=== PATIENT | male | born 1950 | race Caucasian/White ===

== ENCOUNTER → 2022-02-18 14:09 | Outpatient (BNVA) | payer MEDICARE, SELFPAY | PROVIDERS: PCP Family Medicine; Visit Provider Student in an Organized Health Care Education/Training Program | DX: M35.3 Polymyalgia rheumatica (principal); M85.859 Other specified disorders of bone density and structure, unspecified thigh; E11.9 Type 2 diabetes mellitus without complications; Z79.52 Long term (current) use of systemic steroids | CPT/HCPCS: 99202 ==

== ENCOUNTER 2022-09-29 08:44 | Outpatient (AMB) | payer MEDICARE, SELFPAY ==
[2022-09-29 08:45] VITALS: BP 104/60; PULSE 70; RESP 16; TEMP 36.2; O2SAT 97; BMI 29.0
--- NOTE | 2022-09-29 08:45 | A.OFFVIS_ITS ---
Intake Vital Signs 09/29/22 08:45 Height 5 ft 8 in Weight 191 lb BMI 29.0 BP 104/60 Blood Pressure Location Rt brachial Position Sitting Respiration 16 Pulse 70 Pulse Source Pulse Oximeter Temp 97.1 F Temp Source Temporal Artery Scan Pulse Oximetry (%) 97 Oxygen Delivery Method Room Air Intake Visit Reasons: Symptoms of my PMR are coming back Allergies No Known Allergies Allergy (Verified 09/29/22 08:50) Medication List - Last Reconciled 09/29/22 by Britney Foss MD cholecalciferol (vitamin D3) (Vitamin D3) 25 mcg PO DAILY multivitamin 1 tab PO DAILY simvastatin 40 mg PO BEDTIME HPI HPI Comments History of Present Illness Details 72-year-old male with PMR returns for follow-up. Patient completely tapered self of prednisone back in March of 2022. He had his dental implants done in April of 2022. He states that since stopping the prednisone his been getting stiffness of his fingers especially the right hand, especially the thumb 2nd 3rd and 4th fingers, cannot make a full fist. States that yesterday while playing cards he was unable to shuffle cards. States that he has morning stiffness lasting 2-3 hours. No shoulder, hip or knee pain. Initial history: This is a 71 -year-old male with polymyalgia rheumatica.? He used to follow-up with Dr. Sanches but she left the practice.?? Per Dr. Sanches's notes: Diagnosed with PMR in April 2020.? He was having soreness in his hands, shoulders then progressed to upper arms and thighs.? He was started on prednisone 15 mg for 4 weeks then 12.5 mg for 2 weeks then 10 mg for 2 weeks then decrease by 1 mg every 2 weeks.? He took it for 6 months.? When he went down to 4 mg, his symptoms started reappearing again in the right 2 fingers where it initially started. He restarted prednisone 15 mg on October 23 same dosage Patient was tapering his prednisone dose by 1 mg a month.? He he has been on prednisone 1 mg daily since the beginning of February.? He feels well overall except for some stiffness of his right 2nd 3rd and 4th fingers.? This started when he was on 3 mg of prednisone. [facility] Medical History Erectile dysfunction GERD (gastroesophageal reflux disease) Hyperlipidemia Osteoarthritis Osteopenia Peripheral venous insufficiency Plantar fasciitis Polymyalgia rheumatica Type 2 diabetes mellitus without complication Surgical History Hx of colonoscopy Hx of vasectomy Family History Father Spinal stenosis Mother Arthritis Brother Type 1 diabetes mellitus Social History Alcohol intake: current Alcohol intake frequency: a few times a week Patient Tobacco Use Status: Never used Tobacco Current occupational status: previously employed and retired Current occupation: used to be a [employer] Review of Systems [facility] [place] Reports arthralgias and Reports stiffness Physical Exam Vital Signs: Last Vital Signs Temp 97.1 F 09/29/22 08:45 Pulse 70 09/29/22 08:45 Resp 16 09/29/22 08:45 BP 104/60 09/29/22 08:45 Pulse Ox 97 09/29/22 08:45 Oxygen Delivery Method Room Air 09/29/22 08:45 BMI result Body Mass Index 29.0 Const General: cooperative, healthy appearing, comfortable and no acute distress Nutritional Appearance: average body habitus Orientation/consciousness: patient oriented x3 Limitations: no limitations HEENT Head: Yes normocephalic and Yes atraumatic Mouth: moist mucous membranes Resp Effort & Inspection: normal respiratory effort and able to speak in complete sentences Neuro General: patient oriented x3 Extrem Other: Tenderness to palpation in the right 1st CMC, right 1st MCP and interphalangeal joint. Significantly stiff right thumb with movement Normal range of motion of both shoulders, elbows, knees without pain. Bilateral positive MTP squeeze test Could not elicit any triggering of his fingers bilaterally Negative MCP squeeze test Results Reviewed Results Reviewed: DEXA scan 2020? Lumbar spine T-score: -0.2? Femoral neck T-score: -1.6 Total hip T-score: -1.0 1/3 radius T-score: -1.1 Rheumatoid factor, CCP, DOLLY, CRP, sed rate all normal/negative Assessment & Plan Assessment & Plan (1) Seronegative rheumatoid arthritis: Code(s): M06.00 - Rheumatoid arthritis without rheumatoid factor, unspecified site Plan: 71-year-old male with PMR presents for follow-up.? His previous real estate consultant left the practice.? PMR symptoms starting in late 2019 and was diagnosed April of 2020 with initial stiffness of his right 2nd and 3rd fingers then it progressed to involve his shoulders and hips.? Symptoms were well controlled with prednisone taper.? Stiffness of fingers recur 1 patient reduces his prednisone dose below 3 mg. He has completely tapered himself off prednisone since March of 2022 with recurrent stiffness of his fingers especially the right hand. No shoulder or hip pain or stiffness. Recent labs show normal inflammatory markers. Picture likely consistent with seronegative RA. Will need to start DMARDs. Discussed risks and benefits of hydroxychloroquine. Patient agreed to proceed. Start hydroxychloroquine 200 mg Twice daily Follow-up in 3 months (2) Osteopenia: Code(s): M85.80 - Other specified disorders of bone density and structure, unspecified site Qualifiers: Osteopenia location: femoral neck Laterality: unspecified laterality Qualified Code(s): M85.859 - Other specified disorders of bone density and structure, unspecified thigh Plan: DEXA scan 2020? Lumbar spine T-score: -0.2? Femoral neck T-score: -1.6 Total hip T-score: -1.0 1/3 radius T-score: -1.1 Patient took alendronate for about 1 year until February of 2022. No side effects. Patient is not currently on prednisone. He does not need the alendronate at this point (3) Long-term use of hydroxychloroquine: Code(s): Z79.899 - Other longterm (current) drug therapy Plan: Side effects of Plaquenil were discussed with patient is including but retinal toxicity.. Referred patient to Ophthalmology for baseline eye exam Plan I spent 26 minutes reviewing patient's chart, evaluating patient, ordering diagnostic workup, counseling patient and documenting in the chart Orders: Referrals Ophthalmology Referral Z79.899 - Other termite exterminator (current) drug therapy Medications: New hydroxychloroquine 200 mg PO BID 60 tabs 2RF Coding Level of Care Code Est Pt Level 4 (66807) Diagnoses Seronegative rheumatoid arthritis M06.00 Osteopenia M85.859 Osteopenia location: femoral neck Laterality: unspecified laterality Long-term use of hydroxychloroquine Z79.899
== END 2022-09-29 09:11 | disposition home or self-care (01) ==
PROVIDERS: PCP Family Medicine; Visit Provider Student in an Organized Health Care Education/Training Program
DX: M06.00 Rheumatoid arthritis without rheumatoid factor, unspecified site (principal); M85.859 Other specified disorders of bone density and structure, unspecified thigh; Z79.899 Other long term (current) drug therapy
CPT/HCPCS: 99214

== ENCOUNTER → 2022-09-29 08:44 | Outpatient (BNVA) | payer MEDICARE, SELFPAY | PROVIDERS: PCP Family Medicine; Visit Provider Student in an Organized Health Care Education/Training Program | DX: M06.00 Rheumatoid arthritis without rheumatoid factor, unspecified site (principal); M85.859 Other specified disorders of bone density and structure, unspecified thigh; Z79.899 Other long term (current) drug therapy | CPT/HCPCS: 99212 ==

== ENCOUNTER 2022-12-27 09:11 | Outpatient (AMB) | payer MEDICARE, SELFPAY ==
[2022-12-27 09:16] VITALS: BP 122/74; PULSE 73; TEMP 36.1; O2SAT 96; BMI 28.9
--- NOTE | 2022-12-27 09:16 | A.OFFVIS_ITS ---
Intake Vital Signs 12/27/22 09:16 Height 5 ft 8 in Weight 190 lb 0.615 oz BMI 28.9 BP 122/74 Blood Pressure Location Rt brachial Position Sitting Pulse 73 Pulse Source Pulse Oximeter Temp 97.0 F Temp Source Skin Pulse Oximetry (%) 96 Intake Visit Reasons: RA Intake Note: Pt seen today for RA follow up. Requesting 3 month supply of plaquenil as [place] the [place]. Bank Courier Required: No Accompanied by: Self / Same As Patient Allergies No Known Allergies Allergy (Verified 12/27/22 09:18) Medication List - Last Reconciled 12/27/22 by Britney Foss MD cholecalciferol (vitamin D3) (Vitamin D3) 25 mcg PO DAILY hydroxychloroquine 200 mg PO BID multivitamin 1 tab PO DAILY simvastatin 40 mg PO BEDTIME HPI HPI Comments History of Present Illness Details 72-year-old male with seronegative RA re turns for follow-up. Has been hydroxychloroquine 200 mg Twice daily for the last 3 months. States that he is much better overall. Improved pain and stiffness in his fingers. right now he is able to shuffle cards. States that for the last month or so he has been waking up in the middle of the night around 3-4 p.m. and feels that his left 4th and 5th fingers feel like they are popping when he bends them. Otherwise he feels well. Denies any toe pain. Has been off prednisone for a long period of time. Initial history: This is a 71 -year-old male with polymyalgia rheumatica.? He used to follow-up with Dr. Sanches but she left the practice.?? Per Dr. Sanches's notes: Diagnosed with PMR in April 2020.? He was having soreness in his hands, shoulders then progressed to upper arms and thighs.? He was started on prednisone 15 mg for 4 weeks then 12.5 mg for 2 weeks then 10 mg for 2 weeks then decrease by 1 mg every 2 weeks.? He took it for 6 months.? When he went down to 4 mg, his symptoms started reappearing again in the right 2 fingers where it initially started. He restarted prednisone 15 mg on October 23 same dosage Patient was tapering his prednisone dose by 1 mg a month.? He he has been on prednisone 1 mg daily since the beginning of February.? He feels well overall except for some stiffness of his right 2nd 3rd and 4th fingers.? This started when he was on 3 mg of prednisone. 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 of Systems [facility] [place], [place] Reports arthralgias and Reports stiffness Physical Exam Vital Signs: Last Vital Signs Temp 97.0 F 12/27/22 09:16 Pulse 73 12/27/22 09:16 BP 122/74 12/27/22 09:16 Pulse Ox 96 12/27/22 09:16 BMI result Body Mass Index 28.9 Const General: cooperative, healthy appearing, comfortable and no acute distress Nutritional Appearance: average body habitus Orientation/consciousness: patient oriented x3 Limitations: no limitations HEENT Head: Yes normocephalic and Yes atraumatic Resp Effort & Inspection: normal respiratory effort and able to speak in complete sentences Neuro General: patient oriented x3 Extrem Other: Tenderness to palpation in the right 1st CMC, right 1st MCP and interphalangeal joint. No swelling and normal range of motion of right thumb Very early Dupuytren's contracture of both hands, not affecting of motion of fingers. Negative MTP squeeze test bilateral Could not elicit any triggering of his fingers bilaterally Results Reviewed Results Reviewed: DEXA scan 2020? Lumbar spine T-score: -0.2? Femoral neck T-score: -1.6 Total hip T-score: -1.0 1/3 radius T-score: -1.1 Rheumatoid factor, CCP, DOLLY, CRP, sed rate all normal/negative Assessment & Plan Assessment & Plan (1) Seronegative rheumatoid arthritis: Comment: initially dx with PMR in 2019 tt prednisone relabeled to seroneg RA 09/2022 HCQ 09/2022 effective Code(s): M06.00 - Rheumatoid arthritis without rheumatoid factor, unspecified site Plan: This is a 72-year-old male with seronegative RA who returns for follow-up. Doing much better overall on hydroxychloroquine 200 mg Twice daily Continue hydroxychloroquine 20 mg Twice daily Labs before next visit in 6 months (2) Osteopenia: Code(s): M85.80 - Other specified disorders of bone density and structure, unspecified site Qualifiers: Osteopenia location: femoral neck Laterality: unspecified laterality Qualified Code(s): M85.859 - Other specified disorders of bone density and structure, unspecified thigh Plan: DEXA scan 2020? Lumbar spine T-score: -0.2? Femoral neck T-score: -1.6 Total hip T-score: -1.0 03/08 radius T-score: -1.1 Patient took alendronate for about 1 year until February of 2022. No side effects. Patient is not currently on prednisone. He does not need the alendronate at this point (3) Long-term use of hydroxychloroquine: Code(s): Z79.899 - Other terminal operations supervisor (current) drug therapy Plan: Patient aware of side effects related to hydroxychloroquine. Was evaluated by filter tip inspector Dr. Howard landers 10/2022 and cleared to start hydroxychloroquine Plan I spent 26 minutes reviewing patient's chart, evaluating patient, ordering diagnostic workup, counseling patient and documenting in the chart Orders: Orders Complete Blood Count Auto Diff 6 Months M06.00 - Rheumatoid arthritis without rheumatoid factor, unspecified site C Reactive Protein 6 Months M06.00 - Rheumatoid arthritis without rheumatoid factor, unspecified site Erythrocyte Sedimentation Rate 6 Months M06.00 - Rheumatoid arthritis without rheumatoid factor, unspecified site Comprehensive Met. Panel 6 Months M06.00 - Rheumatoid arthritis without rheumatoid factor, unspecified site Medications: Refilled hydroxychloroquine 200 mg PO BID 360 tabs 0RF Coding Level of Care Code Est Pt Level 4 (75059) Diagnoses Seronegative rheumatoid arthritis M06.00 Osteopenia of neck of femur, unspecified laterality M85.859 Osteopenia location: femoral neck Laterality: unspecified laterality Long-term use of hydroxychloroquine Z79.899
== END 2022-12-27 09:40 | disposition home or self-care (01) ==
PROVIDERS: PCP Family Medicine; Visit Provider Student in an Organized Health Care Education/Training Program
DX: M06.00 Rheumatoid arthritis without rheumatoid factor, unspecified site (principal); M85.859 Other specified disorders of bone density and structure, unspecified thigh; Z79.899 Other long term (current) drug therapy
CPT/HCPCS: 99214

== ENCOUNTER → 2022-12-27 09:11 | Outpatient (BNVA) | payer MEDICARE, SELFPAY | PROVIDERS: PCP Family Medicine; Visit Provider Student in an Organized Health Care Education/Training Program | DX: M06.00 Rheumatoid arthritis without rheumatoid factor, unspecified site (principal); M85.859 Other specified disorders of bone density and structure, unspecified thigh; Z79.899 Other long term (current) drug therapy | CPT/HCPCS: 99212 ==

== ENCOUNTER 2023-06-16 10:03 | Outpatient (REF) | payer MEDICARE, SELFPAY ==
[2023-06-16 10:52] LABS: MANUAL DIFF FLAG NO
[2023-06-16 11:02] LABS: Basophils Percent Auto 0.8 % (0-2); Eosinophils Absolute Auto 0.3 X10*3/uL (0.0-0.4); Eosinophils Percent Auto 6.5 % (0-4); Hematocrit 47.4 % (42.0-52.0); Hemoglobin 16.5 g/dl (14.0-18.0); Imm Gran Abs Auto 0.01 X10*3/uL (0.00-0.03); Imm Gran Pct Auto 0.3 % (0.0-0.4); Lymphocytes Absolute Auto 1.4 X10*3/uL (1.2-4.9); Lymphocytes Percent Auto 35.2 % (20-40); Mean Corpuscular HGB Conc 34.8 g/dl (31.0-36.0); Mean Corpuscular Hemoglobin 30.1 pg (27.0-33.0); Mean Corpuscular Volume 86.5 fL (80.0-98.0); Mean Platelet Volume 8.9 fL (9.4-12.4); Monocytes Absolute Auto 0.5 X10*3/uL (0.1-1.2); Monocytes Percent Auto 12.7 % (2-11); Neutrophils Absolute Auto 1.7 x10*3/uL (2.0-8.3); Neutrophils Percent Auto 44.5 % (45-73); Platelet Count 170 X10*3/uL (160-400); Red Blood Count 5.48 X10*6/uL (4.60-5.80); Red Cell Distribution Width 12.6 % (11.0-16.0); White Blood Count 3.9 X10*3/uL (4.8-10.8)
[2023-06-16 11:47] LABS: Erythrocyte Sedimentation Rate 2 MM/HR (0-15)
[2023-06-16 14:59] LABS: Alanine Aminotransferase 34 U/L (0-40); Albumin Level 4.2 g/dL (3.5-5.0); Alkaline Phosphatase 56 U/L (39-117); Anion Gap 12 (12-20); Aspartate Amino Transferase 38 U/L (5-37); Bilirubin Total 0.9 mg/dL (0.0-1.0); Blood Urea Nitrogen 19 mg/dL (9-16); C Reactive Protein 0.13 mg/dL (< or = 0.50); Calcium 10.6 mg/dL (8.4-10.2); Carbon Dioxide 25 mmol/L (22-29); Chloride 108 mmol/L (96-108); Estimated Glomerular Filt Rate > 60; Glucose Random 104 mg/dL (60-115); Potassium 4.4 mmol/L (3.3-5.1); Sodium 141 mmol/L (135-145); Total Protein 7.3 g/dL (6.5-8.0)
== END 2023-06-16 10:04 | disposition home or self-care (01) ==
LOC: HO.10HDL 10:03
PROVIDERS: Visit Provider Student in an Organized Health Care Education/Training Program
DX: M06.00 Rheumatoid arthritis without rheumatoid factor, unspecified site (principal)
CPT/HCPCS: 36415; 80053; 85025; 85652; 86140

== ENCOUNTER 2023-06-21 09:53 | Outpatient (AMB) | payer MEDICARE, SELFPAY ==
[2023-06-21 10:00] VITALS: BP 114/64; PULSE 65; BMI 28.8
--- NOTE | 2023-06-21 10:00 | A.OFFVIS_ITS ---
Intake Vital Signs 06/21/23 10:00 Height 5 ft 8 in Weight 189 lb 2.506 oz BMI 28.8 BP 114/64 Blood Pressure Location Rt brachial Position Sitting Pulse 65 Pulse Source Pulse Oximeter Oxygen Delivery Method Room Air Intake Visit Reasons: RA Intake Note: Patient last seen 12/27/22 presents today for follow up and test results. Tube Bending Machine Operator Required: No Accompanied by: Self / Same As Patient Allergies No Known Allergies Allergy (Verified 06/21/23 10:06) Medication List - Last Reconciled 06/21/23 by Britney Foss MD cholecalciferol (vitamin D3) (Vitamin D3) 25 mcg PO DAILY hydroxychloroquine 200 mg PO BID multivitamin 1 tab PO DAILY simvastatin 40 mg PO BEDTIME HPI HPI Comments History of Present Illness Details 72-year-old male with seronegative RA re turns for follow-up. Hydroxychloroquine 200 mg Twice daily. Doing well overall. States that recently has been having some triggering in the middle of the night of his left middle finger. It does not hurt. States that he was having similar triggering of his thumbs before he started the hydroxychloroquine. Gets bilateral knee pain with walking. Walk about an hour then start have knee pain. Denies any swollen joints. Initial history: This is a 71 -year-old male with polymyalgia rheumatica.? He used to follow-up with Dr. Sanches but she left the practice.?? Per Dr. Sanches's notes: Diagnosed with PMR in April 2020.? He was having soreness in his hands, shoulders then progressed to upper arms and thighs.? He was started on prednisone 15 mg for 4 weeks then 12.5 mg for 2 weeks then 10 mg for 2 weeks then decrease by 1 mg every 2 weeks.? He took it for 6 months.? When he went down to 4 mg, his symptoms started reappearing again in the right 2 fingers where it initially started. He restarted prednisone 15 mg on October 23 same dosage Patient was tapering his prednisone dose by 1 mg a month.? He he has been on prednisone 1 mg daily since the beginning of February.? He feels well overall except for some stiffness of his right 2nd 3rd and 4th fingers.? This started when he was on 3 mg of prednisone. 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 Systems [employer] Reports arthralgias and Reports stiffness Physical Exam Vital Signs: Last Vital Signs Pulse 65 06/21/23 10:00 BP 114/64 06/21/23 10:00 Oxygen Delivery Method Room Air 06/21/23 10:00 BMI result Body Mass Index 28.8 Const General: cooperative, healthy appearing, comfortable and no acute distress Nutritional Appearance: average body habitus Orientation/consciousness: patient oriented x3 Limitations: no limitations HEENT Head: Yes normocephalic and Yes atraumatic Resp Effort & Inspection: normal respiratory effort and able to speak in complete sentences Neuro General: patient oriented x3 Extrem Other: No active synovitis. No triggering elicited Normal range of motion of hands, elbows, shoulders without pain Very early Dupuytren's contracture of both hands, not affecting of motion of fingers. Negative MTP squeeze test bilateral No knee pain with full range of motion Results Reviewed Results Reviewed: DEXA scan 2020? Lumbar spine T-score: -0.2? Femoral neck T-score: -1.6 Total hip T-score: -1.0 03/08 radius T-score: -1.1 Rheumatoid factor, CCP, DOLLY, CRP, sed rate all normal/negative Assessment & Plan Assessment & Plan (1) Seronegative rheumatoid arthritis: Comment: initially dx with PMR in 2019 tt prednisone relabeled to seroneg RA 09/2022 HCQ 09/2022 effective Code(s): M06.00 - Rheumatoid arthritis without rheumatoid factor, unspecified site Plan: This is a 72-year-old male with seronegative RA who returns for follow-up. Doing well on hydroxychloroquine 200 mg Twice daily Continue hydroxychloroquine 200 mg Twice daily Labs before next visit in 6 months (2) Osteopenia: Code(s): M85.80 - Other specified disorders of bone density and structure, unspecified site Qualifiers: Osteopenia location: femoral neck Laterality: unspecified laterality Qualified Code(s): M85.859 - Other specified disorders of bone density and structure, unspecified thigh Plan: DEXA scan 2020? Lumbar spine T-score: -0.2? Femoral neck T-score: -1.6 Total hip T-score: -1.0 03/08 radius T-score: -1.1 Patient took alendronate for about 1 year until February of 2022. No side effects. Patient is not currently on prednisone. He does not need the alendronate at this point (3) Long-term use of hydroxychloroquine: Comment: Eye exam 10/2022 okay Code(s): Z79.899 - Other exterminator helper termite (current) drug therapy Plan: Patient aware of side effects related to hydroxychloroquine. Was evaluated by vice president marketing & development Dr. Howard landers 10/2022 and cleared to start hydroxychloroquine. Continue to follow-up with vice president marketing & development (4) Trigger finger, left middle finger: Code(s): M65.332 - Trigger finger, left middle finger Plan: Discussed different treatment modalities such as occupational therapy. Patient will consider buying [id number] finger splints Plan I spent 26 minutes reviewing patient's chart, evaluating patient, ordering diagnostic workup, counseling patient and documenting in the chart Orders: Orders Comprehensive Met. Panel 6 Months M06.00 - Rheumatoid arthritis without rheumatoid factor, unspecified site C Reactive Protein 6 Months M06.00 - Rheumatoid arthritis without rheumatoid factor, unspecified site Complete Blood Count Auto Diff 6 Months M06.00 - Rheumatoid arthritis without rheumatoid factor, unspecified site Erythrocyte Sedimentation Rate 6 Months M06.00 - Rheumatoid arthritis without rheumatoid factor, unspecified site Medications: Refilled hydroxychloroquine 200 mg PO BID 180 tabs 1RF Coding Level of Care Code Est Pt Level 4 (44401) Diagnoses Seronegative rheumatoid arthritis M06.00 Osteopenia of neck of femur, unspecified laterality M85.859 Osteopenia location: femoral neck Laterality: unspecified laterality Long-term use of hydroxychloroquine Z79.899 Trigger finger, left middle finger M65.332
== END 2023-06-21 10:21 | disposition home or self-care (01) ==
PROVIDERS: PCP Family Medicine; Visit Provider Student in an Organized Health Care Education/Training Program
DX: M06.00 Rheumatoid arthritis without rheumatoid factor, unspecified site (principal); M85.859 Other specified disorders of bone density and structure, unspecified thigh; Z79.899 Other long term (current) drug therapy; M65.332 Trigger finger, left middle finger
CPT/HCPCS: 99214

== ENCOUNTER → 2023-06-21 09:53 | Outpatient (BNVA) | payer MEDICARE, SELFPAY | PROVIDERS: PCP Family Medicine; Visit Provider Student in an Organized Health Care Education/Training Program | DX: M06.00 Rheumatoid arthritis without rheumatoid factor, unspecified site (principal); M85.859 Other specified disorders of bone density and structure, unspecified thigh; M65.332 Trigger finger, left middle finger; Z79.899 Other long term (current) drug therapy | CPT/HCPCS: 99212 ==

== ENCOUNTER 2023-12-21 09:07 | Outpatient (AMB) | payer MEDICARE, SELFPAY ==
--- NOTE | 2023-12-21 09:20 | MHC.OFFVIS ---
Vital Signs 12/21/23 09:23 Height 5 ft 8 in Weight 182 lb 1.629 oz BMI 27.7 BP 120/62 Blood Pressure Location Rt brachial Position Sitting Pulse 65 Pulse Source Pulse Oximeter Pulse Oximetry (%) 96 Oxygen Delivery Method Room Air Intake Visit Reasons: RA/CM Intake Note: Patient presents for RA. Allergies No Known Allergies Allergy (Verified 12/21/23 09:23) Medication List - Last Reconciled 12/21/23 by Britney Foss MD cholecalciferol (vitamin D3) (Vitamin D3) 25 mcg PO DAILY hydroxychloroquine 200 mg PO BID multivitamin 1 tab PO DAILY simvastatin 40 mg PO BEDTIME HPI Comments Details: 73-year-old male with seronegative RA returns for follow-up. On Hydroxychloroquine 200 mg Twice daily. Doing well overall. States that he feels about the same overall. Hands have been doing quite well with no pain swelling or stiffness. His main issue is his knee osteoarthritis. Gets bilateral knee pain with activity. Start getting achy knees after walking about an hour or a mile. He goes to the gym a few days a week and does different exercises. Initial history: This is a 71 -year-old male with polymyalgia rheumatica.? He used to follow-up with Dr. Sanches but she left the practice.?? Per Dr. Sanches's notes: Diagnosed with PMR in April 2020.? He was having soreness in his hands, shoulders then progressed to upper arms and thighs.? He was started on prednisone 15 mg for 4 weeks then 12.5 mg for 2 weeks then 10 mg for 2 weeks then decrease by 1 mg every 2 weeks.? He took it for 6 months.? When he went down to 4 mg, his symptoms started reappearing again in the right 2 fingers where it initially started. He restarted prednisone 15 mg on October 23 same dosage Patient was tapering his prednisone dose by 1 mg a month.? He he has been on prednisone 1 mg daily since the beginning of February.? He feels well overall except for some stiffness of his right 2nd 3rd and 4th fingers.? This started when he was on 3 mg of prednisone. [facility] Medical History Osteopenia Erectile dysfunction Plantar fasciitis Osteoarthritis GERD (gastroesophageal reflux disease) Peripheral venous insufficiency Hyperlipidemia Type 2 diabetes mellitus without complication Polymyalgia rheumatica Surgical History Hx of colonoscopy Hx of vasectomy Family History Father Spinal stenosis Mother Arthritis Brother Type 1 diabetes mellitus Social History Alcohol intake: current Alcohol intake frequency: a few times a week Patient Tobacco Use Status: Never used Tobacco Current occupational status: previously employed and retired 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 Review of Systems [facility] [place] Reports arthralgias and Reports stiffness Physical Exam Vital Signs: Last Vital Signs Pulse 65 12/21/23 09:23 BP 120/62 12/21/23 09:23 Pulse Ox 96 12/21/23 09:23 Oxygen Delivery Method Room Air 12/21/23 09:23 BMI result Body Mass Index 27.7 Const General: cooperative, healthy appearing, comfortable and no acute distress Nutritional Appearance: average body habitus Orientation/consciousness: patient oriented x3 Limitations: no limitations HEENT Head: Yes normocephalic and Yes atraumatic Resp Effort & Inspection: normal respiratory effort and able to speak in complete sentences Neuro General: patient oriented x3 Extrem Other: No active synovitis. No triggering elicited Normal range of motion of hands, elbows, shoulders without pain Very early Dupuytren's contracture of both hands, not affecting of motion of fingers. Negative MTP squeeze test bilateral Minimal bilateral knee pain with full extension Results Reviewed Results Reviewed: DEXA scan 2020? Lumbar spine T-score: -0.2? Femoral neck T-score: -1.6 Total hip T-score: -1.0 03/08 radius T-score: -1.1 Rheumatoid factor, CCP, DOLLY, CRP, sed rate all normal/negative Assessment & Plan Assessment & Plan (1) Seronegative rheumatoid arthritis: Comment: initially dx with PMR in 2019 tt prednisone relabeled to seroneg RA 09/2022 HCQ 09/2022 effective Code(s): M06.00 - Rheumatoid arthritis without rheumatoid factor, unspecified site Category: Medical Plan: This is a 72-year-old male with seronegative RA who returns for follow-up. Doing well on hydroxychloroquine 200 mg Twice daily Continue hydroxychloroquine 200 mg Twice daily Labs before next visit in 6 months (2) Osteopenia: Code(s): M85.80 - Other specified disorders of bone density and structure, unspecified site Category: Medical Qualifiers: Osteopenia location: femoral neck Laterality: unspecified laterality Qualified Code(s): M85.859 - Other specified disorders of bone density and structure, unspecified thigh Plan: DEXA scan 2020? Lumbar spine T-score: -0.2? Femoral neck T-score: -1.6 Total hip T-score: -1.0 03/08 radius T-score: -1.1 Patient took alendronate for about 1 year until February of 2022. No side effects. Patient is not currently on prednisone. He does not need the alendronate at this point (3) Long-term use of hydroxychloroquine: Comment: Eye exam 10/2022 & 06/2023 okay Code(s): Z79.899 - Other detention (current) drug therapy Category: Medical Plan: Patient aware of side effects related to hydroxychloroquine. 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 Symptoms are minimal. Patient still able to walk an hour and a half or a mile and a half daily. Goes to the gym. Does not take any medications for it Plan I spent 26 minutes reviewing patient's chart, evaluating patient, ordering diagnostic workup, counseling patient and documenting in the chart Orders: Orders Complete Blood Count Auto Diff 6 Months M06.00 - Rheumatoid arthritis without rheumatoid factor, unspecified site, Z79.899 - Other detention (current) drug therapy Comprehensive Met. Panel 6 Months M06.00 - Rheumatoid arthritis without rheumatoid factor, unspecified site, Z79.899 - Other detention (current) drug therapy C Reactive Protein 6 Months M06.00 - Rheumatoid arthritis without rheumatoid factor, unspecified site, Z79.899 - Other terminal press operator (current) drug therapy Erythrocyte Sedimentation Rate 6 Months M06.00 - Rheumatoid arthritis without rheumatoid factor, unspecified site, Z79.899 - Other detention (current) drug therapy Coding Level of Care Code Est Pt Level 4 (39158) Complex EM visit Add On G2211 Diagnoses Seronegative rheumatoid arthritis M06.00 Osteopenia of neck of femur, unspecified laterality M85.859 Osteopenia location: femoral neck Laterality: unspecified laterality Long-term use of hydroxychloroquine Z79.899 Bilateral primary osteoarthritis of knee M17.0
[2023-12-21 09:23] VITALS: BP 120/62; PULSE 65; O2SAT 96; BMI 27.7
== END 2023-12-21 09:52 | disposition home or self-care (01) ==
PROVIDERS: PCP Family Medicine; Visit Provider Student in an Organized Health Care Education/Training Program
DX: M06.00 Rheumatoid arthritis without rheumatoid factor, unspecified site (principal); M85.859 Other specified disorders of bone density and structure, unspecified thigh; Z79.899 Other long term (current) drug therapy; M17.0 Bilateral primary osteoarthritis of knee
CPT/HCPCS: 99214; G2211

== ENCOUNTER → 2023-12-21 09:07 | Outpatient (BNVA) | payer MEDICARE, SELFPAY | PROVIDERS: PCP Family Medicine; Visit Provider Student in an Organized Health Care Education/Training Program | DX: M06.00 Rheumatoid arthritis without rheumatoid factor, unspecified site (principal); M85.859 Other specified disorders of bone density and structure, unspecified thigh; M17.0 Bilateral primary osteoarthritis of knee; Z79.899 Other long term (current) drug therapy | CPT/HCPCS: 99212 ==

== ENCOUNTER 2024-05-29 07:50 | Outpatient (AMB) | payer MEDICARE, SELFPAY ==
[2024-05-29 07:52] VITALS: BP 118/70; PULSE 77; O2SAT 97; BMI 29.0
--- NOTE | 2024-05-29 07:52 | A.OFFVIS_ITS ---
Vital Signs 05/29/24 07:52 Height 5 ft 8 in Weight 190 lb 11.198 oz BMI 29.0 BP 118/70 Blood Pressure Location Lt brachial Position Sitting Pulse 77 Pulse Source Pulse Oximeter Pulse Oximetry (%) 97 Oxygen Delivery Method Room Air Intake Visit Reasons: RA/CM Intake Note: Patient last seen by Doctor Britney Foss on 12/21/23. Presents today for RA follow up and test results. Patient is requesting refill of hydroxychloroquine. He would like 90 days supply. Allergies No Known Allergies Allergy (Verified 05/29/24 07:55) Medication List - Last Reconciled 05/29/24 by Geovanna Yanes MD cholecalciferol (vitamin D3) (Vitamin D3) 25 mcg PO DAILY hydroxychloroquine 200 mg PO BID 90 days multivitamin 1 tab PO DAILY simvastatin 40 mg PO BEDTIME HPI Comments Details: Patient is a 73-year-old male with type 2 diabetes, osteopenia, bilateral knee osteoarthritis, PMR and seronegative rheumatoid arthritis here today for follow up Interval History: Patient last seen 12/21/[address] Foss. At that time he was on Plaquenil 200 mg twice a day and doing well overall. Today, Patient reports he continues to do well on plaquenil Has some intermittent stiffness in the fingers but not prolonged Also notes pain to just above the left iliac especially after prolonged sitting Rheumatologic History: Initial history with Dr. Foss: This is a 71 -year-old male with polymyalgia rheumatica.? He used to follow-up with Dr. Sanches but she left the practice.?? Per Dr. Sanches's notes: Diagnosed with PMR in April 2020.? He was having soreness in his hands, shoulders then progressed to upper arms and thighs.? He was started on prednisone 15 mg for 4 weeks then 12.5 mg for 2 weeks then 10 mg for 2 weeks then decrease by 1 mg every 2 weeks.? He took it for 6 months.? When he went down to 4 mg, his symptoms started reappearing again in the right 2 fingers where it initially started. He restarted prednisone 15 mg on October 23 same dosage Patient was tapering his prednisone dose by 1 mg a month.? He he has been on prednisone 1 mg daily since the beginning of February.? He feels well overall except for some stiffness of his right 2nd 3rd and 4th fingers.? This started when he was on 3 mg of prednisone. Finally tapered off prednisone 2021 Re-presented 09/2022 with joint pain involving the hands and labeled seronegative rheumatoid arthritis HCQ 09/2022 effective Osteopenia DEXA scan 2020? Lumbar spine T-score: -0.2? Femoral neck T-score: -1.6 Total hip T-score: -1.0 1/3 radius T-score: -1.1 Patient took alendronate for about 1 year until February of 2022. No side effects. Patient is not currently on prednisone. He does not need the alendronate at this point Current Rheumatology Medication(s): Plaquenil 200 mg b.i.d. 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 Review of Systems Const Details: Review of Systems Constitutional: Denies fever, chills, weight loss ENT: Denies vision changes, eye pain or eye redness, dental caries, dry mouth GI: Denies nausea, vomiting, diarrhea, abdominal pain, change in BM Pulm: Denies SOB, VARGHESE, hemoptysis, wheezing Cards: Denies chest pain, palpitations Skin: Denies Raynaud's, rash, nail changes, photosensitivity, AVIATION SAFETY TECHNICIAN: Denies headaches, weakness, paresthesias, recurrent falls MSK: as per HPI All other systems reviewed and are unremarkable except noted above Physical Exam Vital Signs: Last Vital Signs Pulse 77 05/29/24 07:52 BP 118/70 05/29/24 07:52 Pulse Ox 97 05/29/24 07:52 Oxygen Delivery Method Room Air 05/29/24 07:52 BMI result Body Mass Index 29.0 Vital signs reviewed Physical Examination CONSTITUITIONAL Patient alert and cooperative. Well appearing and in no apparent painful distress HEENT Conjunctiva and sclera clear. ?Pupils equal round and reactive to light. ?No lymphadenopathy. ? CHEST/RESPIRATORY SYSTEM Normal respiratory effort and able to speak in complete sentences. ?Clear to auscultation bilaterally. ?No crackles, rales, rhonchi, wheezes heard. CARDIAC SYSTEM Regular rate and rhythm. ?S1 and S2 heard no murmurs. ?Radial pulses intact bilaterally MSK Hands: ?Good mortgage loan closer strength bilaterally. No deformities noted. ?No synovitis noted to the MCPs, PIPs or DIPs. ?No tenderness to palpation of these joints. Herbedens nodes Wrists: ?Full range of motion at the wrists without pain. ?No tenderness to palpation or synovitis noted to the wrists. Elbows: Full range of motion without pain. No tenderness, weakness, swelling, increased warmth or erythema. Shoulders: Full range of motion without pain. No tenderness, weakness, swelling, increased warmth or erythema. Hips: Full range of motion without pain. Hip bursa: No tenderness to palpation Knees: ?Full range of motion. ?No tenderness, swelling, increased warmth or erythema.?No effusion or crepitations Ankles: Full range of motion. ?No tenderness, swelling, increased warmth or erythema.? Feet: ?Negative squeeze test. ?No tenderness to palpation or swelling of the MTPs. Tender points:?No tenderness to palpation of the bilateral trapezius, supraspinatus, greater trochanters, anterior costochondral junctions, bilateral gluteal areas, bilateral suboccipital muscle insertions tenderness with palpation of the superior left iliac SKIN Skin intact without rashes. Results Reviewed Results Reviewed: Located within [facility] labs reviewed 05/23/2024 HB 15.9 WBC 3.93 Platelets 164 ESR 2 Creatinine 1.1 GFR >60 AST/ALT CRP 0.8 Assessment & Plan Assessment & Plan (1) Seronegative rheumatoid arthritis: Comment: initially dx with PMR in 2019 tt prednisone relabeled to seroneg RA 09/2022 HCQ 09/2022 effective Code(s): M06.00 - Rheumatoid arthritis without rheumatoid factor, unspecified site Category: Medical Plan: #Seronegative RA Patient is a 73-year-old male with seronegative rheumatoid arthritis currently in remission. Plan - Hydroxychloroquine 200mg bid - RTC 6 months - Labs before visit: CBC, CMP, ESR, CRP (2) Polymyalgia rheumatica: Code(s): M35.3 - Polymyalgia rheumatica Category: Medical Plan: #PMR Patient is a 73 y.o. male with history of PMR currently in remission. No signs or symptoms concerning for GCA at this time ESR/CRP normal Plan - Continue to monitor off prednisone (3) Osteopenia: Code(s): M85.80 - Other specified disorders of bone density and structure, unspecified site Category: Medical Qualifiers: Osteopenia location: femoral neck Laterality: unspecified laterality Qualified Code(s): M85.859 - Other specified disorders of bone density and structure, unspecified thigh Plan: #Osteopenia Patient with osteopenia diagnosed by DXA in 2020. Previously on alendronate but stopped in 2021. Currently takes a multivitamin which contains vitamin-D. Goes to [employer] for exercise 3 times a week and uses weight machines. Plan - Encouraged continued exercises - Repeat DEXA scan - Check Vit D at next blood draw in 6 months (4) Long-term use of hydroxychloroquine: Comment: Eye exam 10/2022 & 06/2023 okay Code(s): Z79.899 - Other jail (current) drug therapy Category: Medical Plan: #Long-term Use of Hydroxychloroquine Discussed with patient the risks and benefits of hydroxychloroquine in managing the rheumatic condition Benefits include: - Reduced pain, reduce mortality, maintenance of remission and reduction of flares Risks include: - GI upset, skin hyperpigmentation, retinal toxicity (especially after more than 5 years of use), myopathy Advised yearly ophthalmology visits Last ophthalmology visit: 06/2023 Plan I spent 32 minutes reviewing the record and labs, taking a history, examining the patient, discussing the treatment plan, ordering diagnostic work up and documenting in the medical record Orders: Orders Comprehensive Met. Panel 6 Months M35.3 - Polymyalgia rheumatica C Reactive Protein 6 Months M35.3 - Polymyalgia rheumatica Vitamin D 25-OH Total 6 Months E55.9 - Vitamin D deficiency, unspecified XR DEXA axial skeleton Today M35.3 - Polymyalgia rheumatica, M81.0 - Age- related osteoporosis without current pathological fracture Complete Blood Count Auto Diff 6 Months M35.3 - Polymyalgia rheumatica Erythrocyte Sedimentation Rate 6 Months M35.3 - Polymyalgia rheumatica Coding Level of Care Code Est Pt Level 4 (55132) Complex EM visit Add On G2211 Diagnoses Seronegative rheumatoid arthritis M06.00 Polymyalgia rheumatica M35.3 Osteopenia of neck of femur, unspecified laterality M85.859 Osteopenia location: femoral neck Laterality: unspecified laterality Long-term use of hydroxychloroquine Z79.899
== END 2024-05-29 08:26 | disposition home or self-care (01) ==
LOC: HO.RHE 07:51
PROVIDERS: PCP Family Medicine; Visit Provider Student in an Organized Health Care Education/Training Program
DX: M06.00 Rheumatoid arthritis without rheumatoid factor, unspecified site (principal); M35.3 Polymyalgia rheumatica; M85.859 Other specified disorders of bone density and structure, unspecified thigh; Z79.899 Other long term (current) drug therapy
CPT/HCPCS: 99214; G2211

== ENCOUNTER → 2024-05-29 07:50 | Outpatient (BNVA) | payer MEDICARE, SELFPAY | PROVIDERS: PCP Family Medicine; Visit Provider Student in an Organized Health Care Education/Training Program | DX: M06.00 Rheumatoid arthritis without rheumatoid factor, unspecified site (principal); M35.3 Polymyalgia rheumatica; M85.859 Other specified disorders of bone density and structure, unspecified thigh; Z79.899 Other long term (current) drug therapy | CPT/HCPCS: 99212 ==

== ENCOUNTER 2024-07-19 08:43 | Outpatient (REF) | payer MEDICARE, SELFPAY ==
--- NOTE | ~2024-07-19 | MM_ITS ---
EXAMINATION: DXA BONE DENSITY AXIAL HISTORY: M81.0 - Age-related osteoporosis without current pathological fracture TECHNIQUE: [employer] Dual energy absorptiometry (DEXA) of the lumbar spine, total left hip, and femoral neck was performed. COMPARISON: There are no prior studies for comparison. FINDINGS: The bone mineral density of the lumbar spine is 1.491 with a T-score of 2.3, and a Z-score of 2.6. This is indicative of normal bone mineral density. The bone mineral density of the left total hip is 1.028 with a T-score of -0.5, and a Z-score of 0.1. This is indicative of normal bone mineral density. The bone mineral density of the left femoral neck is 0.934 with a T-score of -1.0, and a Z-score of 0.1. This is indicative of normal bone mineral density. MM/XR DEXA axial skeleton IMPRESSION: Based on bone mineral density, and according to World Health Organization (WHO) criteria, the diagnosis is consistent with normal bone mineral density. All bone density values are in grams per centimeter squared (g/cm2). Statistically, 68% of repeat scans fall within 1 SD (+/- 0.010 g/cm2 for AP spine L1-L4) and 1 SD (+/- 0.012 g/cm2 for femur total) FRAX is a trademark of the [employer] [place] [employer] Metabolic Bone Disease, a World Health Organization (WHO) Collaborating Center. Electronically signed by: Archie Hernandez MD 07/19/2024 09:41 AM EDT
--- OUTSIDE RECORDS SUMMARY | 2024-07-19 08:59 | XMS_ITS | Data Portability ---
Author Organization [facility], [facility] Address [address] [place] [address] Care Team Providers Care Recreation Counselor Name Role Phone SAW CASTANEDA Hold Worker [phone] CHRIS BELL Physical Therapist KALPANA FREEMAN Primary Care Provider [phone] Assessment Encounter Date Assessment Date Assessment LastModified by Organization Details LastModified Time 01/17/2023 01/17/2023 1 PT sessions since initial evaluation on 12/27/2022. Since our prior session patient reports no change in symptom control and function. Clinically associated pain with ROM and resisted motions are not changing. We will assess if adjustment to self care and home exercise as above help patient in progression toward their goals. Follow up: 3 weeks. justino Not available 01/20/2023 16:10:25 02/07/2023 02/07/2023 2 PT sessions since initial evaluation on 12/27/2022. Since our prior session patient reports no change in symptom control and function. Clinically associated pain with ROM and resisted motions are improving. We will assess if adjustment to self care and home exercise as above help patient in progression toward their goals. Follow up: Patient will be out of town for the next 4 months. Is going to dedicate himself to these exercises while away and assess any improvement in walking tolerance. justino Not available 02/07/2023 09:44:16 11/08/2023 11/08/2023 We completed you r Medicare Wellness exam today. This was an opportunity to assess your overall well being including your ability to care for yourself, your mobility, memory, mental health, as well as your safety. With advancing age, it is important to assign someone in your life as your Health Care Proxy (HCP). This person should know what is important to you and what your wishes are for medical procedures if you cannot communicate your wishes yourself (severe illness, unconsciousness). We discussed having a completed Health Care Proxy form today. In addition, today we started a conversation about your End of Life wishes. These conversations will continue over the years. Please consider reading the book, Being Mortal by Joseph Freire to help frame future conversations. We discussed the purpose of a MOLST form (Medical Orders for Life Sustaining Treatment) and completed this form if appropriate per your wishes. Vision and Hearing are senses that are critically important as we age. When impaired, they can contribute to memory loss, falls, and make it harder to drive, talk to family and friends, and engage in the world. Please get your vision checked yearly and your hearing checked when you start to notice hearing loss. We discussed approaches to lowering your risk of heart disease and stroke . Your blood pressure is at goal. Your cholesterol is at goal. We discussed cancer screening you may need as well as vaccines to prevent infections. Colon Cancer : Your risk of colon cancer is higher than average due to personal history of colon polyps. Due for colorectal screenin. If you are not planning to have a colonoscopy please screen with stool cards yearly. Breast Cancer : Breast Cancer Screening (mammography). Next mammogram due: . Cervical Cancer Screening (pap test). Next pap due: . Prostate Cancer : PSA testing for ages 55-69 risks and benefits discussed . Influenza Vaccine : Flu shot yearly. Tetanus Vaccine : Every 10 years. Due: . The following vaccines are available from your pharmacy: Pneumonia Vaccine : PCV20: once after age 65. Shingles Vaccine : 2 shots after age 50. Covid Vaccine : Make sure you have received the most up to date covid vaccine. Your personal health goal for the year is:1. Unintentional weight loss. His weight has decreased from the 190s to the low 180s without any significant changes in diet or exercise. He reports enjoying food and not experiencing symptoms like diarrhea or hyperthyroidism. The weight loss is not associated with a loss of appetite, which reduces the likelihood of cancer. A complete metabolic panel, TSH, and CBC will be ordered to investigate the cause of the weight loss. 2. Hyperlipidemia. His LDL cholesterol level is 101, slightly above the target of 100 for diabetic patients. He is currently on simvastatin. If future LDL levels remain elevated, a switch to a more potent statin like Crestor or atorvastatin may be considered. 3. Diabetes Mellitus. His hemoglobin A1c is 5.8, which is in the high normal range but much lower than the diabetes range. His blood glucose level is 102. He has lost weight and improved his diet, which has contributed to better control of his blood sugar levels. He should continue his current lifestyle and dietary habits. 4. Health Maintenance. He was advised to receive the COVID-19 and influenza vaccines. The PC20 pneumonia vaccine was also recommended. His blood pressure is within normal range, and his microalbumin levels are normal, indicating healthy kidney function. Sensation and pulses in his feet are normal. His BUN, creatinine, and potassium levels are all within normal limits. He should continue regular eye exams and maintain his current lifestyle habits. juice Not available 11/11/2023 08:33:18 05/15/2024 05/15/2024 We reviewed your chronic medical conditions and updated your plan for management. Please review instructions below. We have discussed your personal goals and discussed how to reach your goals. Please reach out to us via the Portal or phone if you have questions about your chronic conditions or if you or your caregivers require assistance in meeting your goals. Please visit our website [employer] for more patient resources. As part of your care plan, we will help coordinate your ongoing medical needs, arrange for durable medical equipment, renew prescriptions and necessary prior authorizations, facilitate getting referrals and collaborating with specialist, referrals for VNA services. 1. Rheumatoid Arthritis. He is currently on hydroxychloroquine , which is working well for him. 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 2. Type 2 Diabetes Mellitus. His blood sugar levels have been stable, with a recent reading of 107 mg/dL and a glycohemoglobin level of 5.6%. He has been managing his diabetes through weight loss and a healthier diet without the need for medication. He is advised to continue annual eye exams due to his use of hydroxychloroquine . A urine test for albumin will be conducted during his next visit. 3. Chest Congestion. His lung sounds are clear. The chest congestion could be due to postnasal drip or residual bronchitis, which can persist for 5 to 6 weeks post-infection. 4. Numbness in Toes. He reports numbness in his toes, particularly at night. This is likely due to dry skin and irritated calluses rather than a circulatory issue. He is advised to use moisturizing cream and consider seeing a global marketing intern. 5. Seborrheic Keratoses. He has seborrheic keratoses on his back and shoulders, which are benign. He is advised to use moisturizing cream if they become bothersome. 6. Ear Bleeding. His eardrum appears normal, but there is some wax present. The bleeding could be due to irritation from cleaning with Q-tips. He is advised to avoid using Q-tips and consider using Debrox if the wax becomes bothersome. 7. Kinsey on Toe. He has a corn on a hammertoe. He is advised to use wider shoes and consider using corn plaster or salicylic acid to remove the corn. A referral to a global marketing intern will be made for further management. 8. Health Maintenance. His blood pressure and heart rate are within normal limits. His LDL cholesterol level is 96 mg/dL, and his total cholesterol and HDL levels are also within normal ranges. He has received the COVID-19 vaccine, influenza vaccine, RSV vaccine, tetanus vaccine, and shingles vaccine. He underwent a colonoscopy in 2022, during which an adenomatous polyp was found. He is due for a COVID-19 booster in June 2024 and a PC-20 pneumonia vaccine. He is scheduled for another colonoscopy in 2027. Follow-up The patient will follow up in 6 months. [email or web address] Not available 05/17/2024 15:16:46 Plan of Treatment Reminders Order Date Submit Date Provider Last Modified By Organization Details Last Modified Time Details Appointments LAB Follow-Up 2024 11:30A M [facility] Lab Not available Not available Not available Wellness Visit 30 2024 09:00A M Kalpana Freeman MD Not available Not available Not available Lab CBC 2023 024 [facility], [address] [place], [address], 11/08/2023 12:25:46 TSH, serum or plasma 2023 024 [facility], [address] [place], [address], 11/08/2023 16:39:44 CMP, serum or plasma 2023 024 [facility], [address] [facility], [place], [address], 11/09/2023 15:57:08 Referral None recorded. Procedures None recorded. Surgeries None recorded. Imaging None recorded. Medication Orders None recorded. Patient TargetsNo targets recorded. Patient InstructionsNo instructions recorded. Reason for Referral None Reported. Results Created Date Observation Date Name Description Value Unit Range Abnormal Flag Note LastModifiedBy Organization Detail LastModifiedTime 12/31/19 23 01/02/2023 ANATO MARY PATHO LOGY path report [facility] [address] [place] [address] Lab Direc tor: Anna wilkes MD [facility] Repor t Acces jayesh #: [id number] FINAL PATHO LOGIC DIAGN OSIS: RIGHT COLON , POLYP S X 2, COLD SNARE REMOV AL: Adeno matou s polyp s (2). Ira ctron icall y Natalie d Out By Anna wilkes MD By his/h er surendra booth above , the patho logis t liste d as roberto carlos diaz the Final Diagn osis certi fies that he/sh e has perso hannah revie wed this case and confi rmed or corre cted the diagn osis. [facility] [place] HISTO RY High risk colon cance r surve illan ce: Perso nal histo ry of colon ic polyp s, Last colon oscop y: 2018 SPECI MENS SUBMI TTED: A: RIGHT COLON , POLYP S X 2 GROSS DESCR IPTIO N RIGHT COLON , POLYP S X 2: Recei martell in forma danica are 2 piece s of cabrera soft tissu e which measu re 0.3 and 0.4 cm in great est dimen jayesh. The large r piece is bisec jocy. Total ly submi tted in block A1. DN 12/30 Gross ing Staff : TOM reynolds Name: ANDRAE TODD : 9[birth year] (Age: 72) Sex: M 8 Insti tutio n: [facility] Locat ion: [facility] Date of Opera tion: 12/30 Date of Acces jayesh: 12/30 Repor jocy: 01/02 17:42 Resul ts To: Andre carpenter MD, BS Blue wagner MD, BS Not Available [facility] (Outpatient) [address] [place] [address], [address], 01/02/2023 19:20:19 01/26/20 23 01/25/2023 HGB A1C hemoglobin A1C 5.9 % 4.8-6. 0 Goal: <7% in Patie nts with Diabe jan An A1c betwe en 5.7-6 .4% is ident ified as pre-d iabet es and sugge sts risk for progr essio n to diabe jan Two a1c value s of 6.5% or highe r is consi stent with a diagn osis of diabe jan but may need furth er confi rmati on Not Available [address], [address], 01/25/2023 11:57:34 01/26/20 23 01/25/2023 HGB A1C estimated average glucose 122.6 mg/dL Not Available [address], [address], 01/25/2023 11:57:34 01/26/20 23 01/25/2023 BASIC METAB OLIC PANEL glucose 102 mg/dL 70-100 high Not Available [address], [address], 01/25/2023 12:39:48 01/26/20 23 01/25/2023 BASIC METAB OLIC PANEL BUN 18 mg/dL 7-18 Not Available [address], [address], 01/25/2023 12:39:48 11/22/01/25/2023 BASIC METAB OLIC PANEL creatinine 1.4 mg/dL 0.8-1. 3 high Not Available [address], [address], 01/25/2023 12:39:48 01/26/2001/25/2023 BASIC METAB OLIC PANEL B/C 12.9 ratio Not Available [address], [address], 01/25/2023 12:39:48 01/26/2001/25/2023 BASIC METAB OLIC PANEL GFR 54.1 mL/mi n abnormal >=60m L/min - Nya l or midly reduc ed <60mL /min- Decre ased kidne y funct ion <15mL /min - Kidne y failu re [facility] calcu lates estim ated Glome rular Filtr ation Rate (eGFR ) using the Chron ic Kidne y Disea se Epide miolo gy Colla borat ion (CKD- EPI) Equat ion (Agatha alvarez et. al 2020) as recom roman d by the Natio nal Kidne y Found ation . eGFR is based on age, serum creat inine , and sex. CKD-E PI does not calcu late eGFR by race, does not apply to child cb (age <18 years ), and shoul d not be used in pregn ryan. Not Available [address], [address], 01/25/2023 12:39:48 01/26/2001/25/2023 BASIC METAB OLIC PANEL sodium 142 mmol/ L 136-14 5 Not Available [address], [address], 01/25/2023 12:39:48 01/26/2001/25/2023 BASIC METAB OLIC PANEL potassium 4.7 mmol/ L 3.5-5. 1 Not Available [address], [address], 01/25/2023 12:39:48 01/26/2001/25/2023 BASIC METAB OLIC PANEL chloride 104 mmol/ L 96-107 Not Available [address], [address], 01/25/2023 12:39:48 01/26/20 23 01/25/2023 BASIC METAB OLIC PANEL anion gap 9.1 5.0-15 .0 Not Available [address], [address], 01/25/2023 12:39:48 01/26/20 23 01/25/2023 BASIC METAB OLIC PANEL CO2 29 mmol/ L 21-32 Not Available [address], [address], 01/25/2023 12:39:48 01/26/20 23 01/25/2023 BASIC METAB OLIC PANEL calcium 9.0 mg/dL 8.5-10 .3 Not Available [address], [address], 01/25/2023 12:39:48 05/18/19 24 05/19/2023 HGB A1C hemoglobin A1C 5.7 % 4.8-6. 0 Goal: <7% in Patie nts with Diabe jan An A1c betwe en 5.7-6 .4% is ident ified as pre-d iabet es and sugge sts risk for progr essio n to diabe jan Two a1c value s of 6.5% or highe r is consi stent with a diagn osis of diabe jan but may need furth er confi rmati on Not Available [address], [address], 05/19/2023 08:53:05 05/18/19 24 05/19/2023 HGB A1C estimated average glucose 116.9 mg/dL Not Available [address], [address], 05/19/2023 08:53:05 05/18/19 24 05/19/2023 BASIC METAB OLIC PANEL glucose 93 mg/dL 70-100 Not Available [address], [address], 05/19/2023 10:00:35 05/18/19 24 05/19/2023 BASIC METAB OLIC PANEL BUN 19 mg/dL 7-18 high Not Available [address], [address], 05/19/2023 10:00:35 05/18/19 24 05/19/2023 BASIC METAB OLIC PANEL creatinine 1.1 mg/dL 0.8-1. 3 Not Available [address], [address], 05/19/2023 10:00:35 05/18/19 24 05/19/2023 BASIC METAB OLIC PANEL B/C 17.3 ratio Not Available [address], [address], 05/19/2023 10:00:35 05/18/19 24 05/19/2023 BASIC METAB OLIC PANEL GFR >=60ML /MIN mL/mi n normal >=60m L/min - Nya l or midly reduc ed <60mL /min- Decre ased kidne y funct ion <15mL /min - Kidne y failu re [facility] calcu lates estim ated Glome rular Filtr ation Rate (eGFR ) using the Chron ic Kidne y Disea se Epide miolo gy Colla borat ion (CKD- EPI) Equat ion (Agatha r et. al 2020) as recom roman d by the Natio nal Kidne y Found ation . eGFR is based on age, serum creat inine , and sex. CKD-E PI does not calcu late eGFR by race, does not apply to child cb (age <18 years ), and shoul d not be used in pregn ryan. Not Available [address], [address], 05/19/2023 10:00:35 05/18/19 24 05/19/2023 BASIC METAB OLIC PANEL sodium 141 mmol/ L 136-14 5 Not Available [address], [address], 05/19/2023 10:00:35 05/18/19 24 05/19/2023 BASIC METAB OLIC PANEL potassium 4.9 mmol/ L 3.5-5. 1 Not Available [address], [address], 05/19/2023 10:00:35 05/18/19 24 05/19/2023 BASIC METAB OLIC PANEL chloride 105 mmol/ L 96-107 Not Available [address], [address], 05/19/2023 10:00:35 05/18/19 24 05/19/2023 BASIC METAB OLIC PANEL anion gap 8.6 5.0-15 .0 Not Available [address], [address], 05/19/2023 10:00:35 05/18/19 24 05/19/2023 BASIC METAB OLIC PANEL CO2 27 mmol/ L 21-32 Not Available [address], [address], 05/19/2023 10:00:35 05/18/19 24 05/19/2023 BASIC METAB OLIC PANEL calcium 8.6 mg/dL 8.5-10 .3 Not Available [address], [address], 05/19/2023 10:00:35 05/18/19 24 05/19/2023 LIPID PANEL cholesterol 156 mg/dL <200 mg/dl Maykel able 200-2 39 mg/dl Borde rline High >240 mg/dl High Not Available [address], [address], 05/19/2023 10:00:36 05/18/19 24 05/19/2023 LIPID PANEL triglyceride s 157 mg/dL <150 mg/dL Nya l 150-1 99 mg/dL Borde rline High 200-4 99 mg/dL High >500 mg/dL Very High Not Available [address], [address], 05/19/2023 10:00:36 05/18/19 24 05/19/2023 LIPID PANEL direct HDL 42 mg/dL <40 mg/dl - Major Risk for CHD >60 mg/dl - Negat jay Risk for CHD Not Available [address], [address], 05/19/2023 10:00:36 05/18/19 24 05/19/2023 DIREC T LDL direct LDL 90 mg/dL RISK CATEG ORY LDL GOAL _ CHD or CHD Risk Equiv alent s <100 mg/dl (10-y ear risk >20%) 2+ Risk Facto rs <130 mg/dl (10-y ear risk <= 20%) 0-1 Risk Facto r? <160 mg/dl ? Almos t all peopl e with 0-1 risk facto r have a 10 year risk <10%, thus 10 year risk asses ment in peopl e with 0-1 risk facto r is not jorge sebastian. Not Available [address], [address], 05/19/2023 10:00:38 05/18/19 24 05/19/2023 MICRO ALBUM IN/CR EATIN INE RATIO PANEL , URINE microalbumin 6.9 mg/L 1.3-20 .0 Not Available [address], [address], 05/19/2023 12:37:40 05/18/19 24 05/19/2023 MICRO ALBUM IN/CR EATIN INE RATIO PANEL , URINE creatinine urine 158.8 mg/dL 30.0-1 25.0 high Not Available [address], [address], 05/19/2023 12:37:40 05/18/19 24 05/19/2023 MICRO ALBUM IN/CR EATIN INE RATIO PANEL , URINE microalb/cre at ratio 4.3 mg/g_ creat 0.0-29 .0 Not Available [address], [address], 05/19/2023 12:37:40 08/28/19 24 08/28/2023 HGB A1C hemoglobin A1C 5.8 % 4.8-6. 0 Goal: <7% in Patie nts with Diabe jan An A1c betwe en 5.7-6 .4% is ident ified as pre-d iabet es and sugge sts risk for progr essio n to diabe jan Two a1c value s of 6.5% or highe r is consi stent with a diagn osis of diabe jan but may need furth er confi rmati on Not Available [address], [address], 08/28/2023 12:34:47 08/28/19 24 08/28/2023 HGB A1C estimated average glucose 119.8 mg/dL Not Available [address], [address], 08/28/2023 12:34:47 08/28/19 24 08/29/2023 BASIC METAB OLIC PANEL glucose 107 mg/dL 70-100 high Not Available [address], [address], 08/29/2023 12:04:30 08/28/19 24 08/29/2023 BASIC METAB OLIC PANEL BUN 14 mg/dL 7-18 Not Available [address], [address], 08/29/2023 12:04:30 08/28/19 24 08/29/2023 BASIC METAB OLIC PANEL creatinine 1.3 mg/dL 0.8-1. 3 Not Available [address], [address], 08/29/2023 12:04:30 08/28/19 24 08/29/2023 BASIC METAB OLIC PANEL B/C 10.8 ratio Not Available [address], [address], 08/29/2023 12:04:30 08/28/19 24 08/29/2023 BASIC METAB OLIC PANEL GFR 58.7 mL/mi n abnormal >=60m L/min - Nya l or midly reduc ed <60mL /min- Decre ased kidne y funct ion <15mL /min - Kidne y failu re [place] [facility] calcu lates estim ated Glome rular Filtr ation Rate (eGFR ) using the Chron ic Kidne y Disea se Epide miolo gy Colla borat ion (CKD- EPI) Equat ion (Agatha r et. al 2020) as recom roman d by the Natio nal Kidne y Found ation . eGFR is based on age, serum creat inine , and sex. CKD-E PI does not calcu late eGFR by race, does not apply to child cb (age <18 years ), and shoul d not be used in pregn ryan. Not Available [address], [address], 08/29/2023 12:04:30 08/28/19 24 08/29/2023 BASIC METAB OLIC PANEL sodium 142 mmol/ L 136-14 5 Not Available [address], [address], 08/29/2023 12:04:30 08/28/19 24 08/29/2023 BASIC METAB OLIC PANEL potassium 4.7 mmol/ L 3.5-5. 1 Not Available [address], [address], 08/29/2023 12:04:30 08/28/19 24 08/29/2023 BASIC METAB OLIC PANEL chloride 105 mmol/ L 96-107 Not Available [address], [address], 08/29/2023 12:04:30 08/28/19 24 08/29/2023 BASIC METAB OLIC PANEL anion gap 8.9 5.0-15 .0 Not Available [address], [address], 08/29/2023 12:04:30 08/28/19 24 08/29/2023 BASIC METAB OLIC PANEL CO2 28 mmol/ L 21-32 Not Available [address], [address], 08/29/2023 12:04:30 08/28/19 24 08/29/2023 BASIC METAB OLIC PANEL calcium 8.8 mg/dL 8.5-10 .3 Not Available [address], [address], 08/29/2023 12:04:30 11/03/19 24 11/03/2023 HGB A1C hemoglobin A1C 5.8 % 4.8-6. 0 Goal: <7% in Patie nts with Diabe jan An A1c betwe en 5.7-6 .4% is ident ified as pre-d iabet es and sugge sts risk for progr essio n to diabe jan Two a1c value s of 6.5% or highe r is consi stent with a diagn osis of diabe jan but may need furth er confi rmati on Not Available [address], [address], 11/03/2023 12:24:22 11/03/19 24 11/03/2023 HGB A1C estimated average glucose 119.8 mg/dL Not Available [address], [address], 11/03/2023 12:24:22 11/03/19 24 11/07/2023 MICRO ALBUM IN/CR EATIN INE RATIO PANEL , URINE microalbumin 3.6 mg/L 1.3-20 .0 Not Available [address], [address], 11/07/2023 11:56:50 11/03/19 24 11/07/2023 MICRO ALBUM IN/CR EATIN INE RATIO PANEL , URINE creatinine urine 121.2 mg/dL 30.0-1 25.0 Not Available [address], [address], 11/07/2023 11:56:50 11/03/19 24 11/07/2023 MICRO ALBUM IN/CR EATIN INE RATIO PANEL , URINE microalb/cre at ratio 3.0 mg/g_ creat 0.0-29 .0 Not Available [address], [address], 11/07/2023 11:56:50 11/03/19 24 11/07/2023 BASIC METAB OLIC PANEL glucose 102 mg/dL 70-100 high Not Available [address], [address], 11/07/2023 14:30:16 11/03/19 24 11/07/2023 BASIC METAB OLIC PANEL BUN 17 mg/dL 7-18 Not Available [address], [address], 11/07/2023 14:30:16 11/03/19 24 11/07/2023 BASIC METAB OLIC PANEL creatinine 1.2 mg/dL 0.8-1. 3 Not Available [address], [address], 11/07/2023 14:30:16 11/03/19 24 11/07/2023 BASIC METAB OLIC PANEL B/C 14.2 ratio Not Available [address], [address], 11/07/2023 14:30:16 11/03/19 24 11/07/2023 BASIC METAB OLIC PANEL GFR >=60ML /MIN mL/mi n normal >=60m L/min - Nya l or midly reduc ed <60mL /min- Decre ased kidne y funct ion <15mL /min - Kidne y failu re [place] [facility] calcu lates estim ated Glome rular Filtr ation Rate (eGFR ) using the Chron ic Kidne y Disea se Epide miolo gy Colla borat ion (CKD- EPI) Equat ion (Agatha r et. al 2020) as recom roman d by the Natio nal Kidne y Found ation . eGFR is based on age, serum creat inine , and sex. CKD-E PI does not calcu late eGFR by race, does not apply to child cb (age <18 years ), and shoul d not be used in pregn ryan. Not Available [address], [address], 11/07/2023 14:30:16 11/03/1911/07/2023 BASIC METAB OLIC PANEL sodium 141 mmol/ L 136-14 5 Not Available [address], [address], 11/07/2023 14:30:16 11/03/19 24 11/07/2023 BASIC METAB OLIC PANEL potassium 4.9 mmol/ L 3.5-5. 1 Not Available [address], [address], 11/07/2023 14:30:16 11/03/19 24 11/07/2023 BASIC METAB OLIC PANEL chloride 103 mmol/ L 96-107 Not Available [address], [address], 11/07/2023 14:30:16 11/03/19 24 11/07/2023 BASIC METAB OLIC PANEL anion gap 7.8 5.0-15 .0 Not Available [address], [address], 11/07/2023 14:30:16 11/03/19 24 11/07/2023 BASIC METAB OLIC PANEL CO2 30 mmol/ L 21-32 Not Available [address], [address], 11/07/2023 14:30:16 11/03/19 24 11/07/2023 BASIC METAB OLIC PANEL calcium 8.6 mg/dL 8.5-10 .3 Not Available [address], [address], 11/07/2023 14:30:16 11/03/19 24 11/07/2023 LIPID PANEL cholesterol 182 mg/dL <200 mg/dl Maykel able 200-2 39 mg/dl Borde rline High >240 mg/dl High Not Available [address], [address], 11/07/2023 14:30:16 11/03/19 24 11/07/2023 LIPID PANEL triglyceride s 112 mg/dL <150 mg/dL Nya l 150-1 99 mg/dL Borde rline High 200-4 99 mg/dL High >500 mg/dL Very High Not Available [address], [address], 11/07/2023 14:30:16 11/03/19 24 11/07/2023 LIPID PANEL direct HDL 56 mg/dL <40 mg/dl - Major Risk for CHD >60 mg/dl - Negat jay Risk for CHD Not Available [address], [address], 11/07/2023 14:30:16 11/03/19 24 11/07/2023 DIREC T LDL direct LDL 101 mg/dL RISK CATEG ORY LDL GOAL _ CHD or CHD Risk Equiv alent s <100 mg/dl (10-y ear risk >20%) 2+ Risk Facto rs <130 mg/dl (10-y ear risk <= 20%) 0-1 Risk Facto r? <160 mg/dl ? Almos t all peopl e with 0-1 risk facto r have a 10 year risk <10%, thus 10 year risk asses ment in peopl e with 0-1 risk facto r is not jorge sebastian. Not Available [address], [address], 11/07/2023 14:30:17 11/08/19 24 11/08/2023 CBC WBC 3.58 K/? ? ?L 4.23-9 .07 low Not Available [address], [address], 11/08/2023 12:25:46 11/08/19 24 11/08/2023 CBC RBC 5.47 M/? ? ?L 4.63-6 .08 Not Available [address], [address], 11/08/2023 12:25:46 11/08/19 24 11/08/2023 CBC HGB 16.4 g/dL 13.7-1 7.5 Not Available [address] [address], [address], 11/08/2023 12:25:46 11/08/19 24 11/08/2023 CBC HCT 48.7 % 40.1-5 1.0 Not Available [address], [address], 11/08/2023 12:25:46 11/08/19 24 11/08/2023 CBC MCV 89.0 fL 79.0-9 2.2 Not Available [address], [address], 11/08/2023 12:25:46 11/08/19 24 11/08/2023 CBC MCH 30.0 pg 25.7-3 2.2 Not Available [address], [address], 11/08/2023 12:25:46 11/08/19 24 11/08/2023 CBC MCHC 33.7 g/dL 32.3-3 6.5 Not Available [address], [address], 11/08/2023 12:25:46 11/08/19 24 11/08/2023 CBC plt 159 K/? ? ?L 163-33 7 low Not Available [address], [address], 11/08/2023 12:25:46 11/08/19 24 11/08/2023 CBC MPV 8.8 fL 9.4-12 .4 low Not Available [address], [address], 11/08/2023 12:25:46 11/08/19 24 11/08/2023 CBC neut% 49.7 % 34.0-6 7.9 Not Available [address], [address], 11/08/2023 12:25:46 11/08/19 24 11/08/2023 CBC neut# 1.78 1.78-5 .38 Not Available [address], [address], 11/08/2023 12:25:46 11/08/19 24 11/08/2023 CBC lymph % 28.8 % 21.8-5 3.1 Not Available [address], [address], 11/08/2023 12:25:46 11/08/19 24 11/08/2023 CBC lymph # 1.03 K/? ? ?L 1.32-3 .57 low Not Available [address], [address], 11/08/2023 12:25:46 11/08/19 24 11/08/2023 CBC mono% 14.0 % 5.3-12 .2 high Not Available [address], [address], 11/08/2023 12:25:46 11/08/19 24 11/08/2023 CBC mono# 0.50 0.30-0 .82 Not Available [address], [address], 11/08/2023 12:25:46 11/08/19 24 11/08/2023 CBC eo% 6.1 % 0.8-7. 0 Not Available [address], [address], 11/08/2023 12:25:46 11/08/19 24 11/08/2023 CBC eo# 0.22 0.04-0 .54 Not Available [address], [address], 11/08/2023 12:25:46 11/08/1911/08/2023 CBC baso% 1.1 % 0.2-1. 2 Not Available [address], [address], 11/08/2023 12:25:46 11/08/1911/08/2023 CBC baso# 0.04 0.00-0 .08 Not Available [address], [address], 11/08/2023 12:25:46 11/08/1911/08/2023 CBC RDW-CV 12.5 % 11.6-1 4.4 Not Available [address], [address], 11/08/2023 12:25:46 11/08/19 24 11/08/2023 CBC Ig% 0.300 % 0.000- 1.500 Ig % >0.5 Indic ates possi ble Left Shift Not Available [address], [address], 11/08/2023 12:25:46 11/08/19 24 11/08/2023 CBC Ig# 0.010 0.000- 0.093 Not Available [address], [address], 11/08/2023 12:25:46 11/08/19 24 11/08/2023 CBC NRBC% 0.0 % 0.0-0. 2 Not Available [address], [address], 11/08/2023 12:25:46 11/08/19 24 11/08/2023 CBC NRBC# 0.000 0.000- 0.012 Not Available [address], [address], 11/08/2023 12:25:46 11/08/19 24 11/08/2023 TSH TSH 0.96 uIU/m L 0.50-6 .00 [facility] [employer] and [facility] id [facility] iatio n recom mend goal TSH value s betwe en 0.4-4 .0 mIU/m L. Not Available [address], [address], 11/08/2023 16:39:44 11/08/19 24 11/09/2023 COMP. METAB OLIC PANEL glucose 119 mg/dL 70-100 high Not Available [address], [address], 11/09/2023 15:57:08 11/08/19 24 11/09/2023 COMP. METAB OLIC PANEL BUN 15 mg/dL 7-18 Not Available [address], [address], 11/09/2023 15:57:08 11/08/19 24 11/09/2023 COMP. METAB OLIC PANEL creatinine 1.2 mg/dL 0.8-1. 3 Not Available [address], [address], 11/09/2023 15:57:08 11/08/19 24 11/09/2023 COMP. METAB OLIC PANEL B/C 12.5 ratio Not Available [address], [address], 11/09/2023 15:57:08 11/08/19 24 11/09/2023 COMP. METAB OLIC PANEL GFR >=60ML /MIN mL/mi n normal >=60m L/min - Nya l or midly reduc ed <60mL /min- Decre ased kidne y funct ion <15mL /min - Kidne y failu re [facility] calcu lates estim ated Glome rular Filtr ation Rate (eGFR ) using the Chron ic Kidne y Disea se Epide miolo gy Colla borat ion (CKD- EPI) Equat ion (Agatha r et. al 2020) as recom roman d by the Natio nal Kidne y [facility] ation . eGFR is based on age, serum creat inine , and sex. CKD-E PI does not calcu late eGFR by race, does not apply to child cb (age <18 years ), and shoul d not be used in pregn ryan. Not Available [address], [address], 11/09/2023 15:57:08 11/08/1911/09/2023 COMP. METAB OLIC PANEL sodium 142 mmol/ L 136-14 5 Not Available [address], [address], 11/09/2023 15:57:08 11/08/19 24 11/09/2023 COMP. METAB OLIC PANEL potassium 4.8 mmol/ L 3.5-5. 1 Not Available [address], [address], 11/09/2023 15:57:08 11/08/19 24 11/09/2023 COMP. METAB OLIC PANEL chloride 104 mmol/ L 96-107 Not Available [address], [address], 11/09/2023 15:57:08 11/08/19 24 11/09/2023 COMP. METAB OLIC PANEL anion gap 8.6 5.0-15 .0 Not Available [address], [address], 11/09/2023 15:57:08 11/08/19 24 11/09/2023 COMP. METAB OLIC PANEL CO2 29 mmol/ L 21-32 Not Available [address], [address], 11/09/2023 15:57:08 11/08/19 24 11/09/2023 COMP. METAB OLIC PANEL calcium 8.9 mg/dL 8.5-10 .3 Not Available [address], [address], 11/09/2023 15:57:08 11/08/19 24 11/09/2023 COMP. METAB OLIC PANEL total protein 7.4 g/dL 6.4-8. 2 Not Available [address], [address], 11/09/2023 15:57:08 11/08/19 24 11/09/2023 COMP. METAB OLIC PANEL albumin 4.0 g/dL 3.4-5. 0 Not Available [address], [address], 11/09/2023 15:57:08 11/08/19 24 11/09/2023 COMP. METAB OLIC PANEL globulin 3.4 g/dL Not Available [address], [address], 11/09/2023 15:57:08 11/08/19 24 11/09/2023 COMP. METAB OLIC PANEL A/G 1.2 ratio 0.8-2. 0 Not Available [address], [address], 11/09/2023 15:57:08 11/08/19 24 11/09/2023 COMP. METAB OLIC PANEL total bilirubin 0.80 mg/dL 0.00-1 .00 Not Available [address], [address], 11/09/2023 15:57:08 11/08/19 24 11/09/2023 COMP. METAB OLIC PANEL AST 33 U/L 0-37 Not Available [address], [address], 11/09/2023 15:57:08 11/08/19 24 11/09/2023 COMP. METAB OLIC PANEL ALT 43 U/L 6-63 Not Available [address], [address], 11/09/2023 15:57:08 11/08/19 24 11/09/2023 COMP. METAB OLIC PANEL alk. phos. 67 U/L 50-136 Not Available [address], [address], 11/09/2023 15:57:08 12/19/19 24 12/19/2023 CBC WBC 4.11 K/? ? ?L 4.23-9 .07 low Not Available [address], [address], 12/19/2023 12:26:55 12/19/19 24 12/19/2023 CBC RBC 5.28 M/? ? ?L 4.63-6 .08 Not Available [address], [address], 12/19/2023 12:26:55 12/19/19 24 12/19/2023 CBC HGB 16.1 g/dL 13.7-1 7.5 Not Available [address], [address], 12/19/2023 12:26:55 12/19/1912/19/2023 CBC HCT 46.6 % 40.1-5 1.0 Not Available [address], [address], 12/19/2023 12:26:55 12/19/19 24 12/19/2023 CBC MCV 88.3 fL 79.0-9 2.2 Not Available [address], [address], 12/19/2023 12:26:55 12/19/19 24 12/19/2023 CBC MCH 30.5 pg 25.7-3 2.2 Not Available [address], [address], 12/19/2023 12:26:55 12/19/19 24 12/19/2023 CBC MCHC 34.5 g/dL 32.3-3 6.5 Not Available [address], [address], 12/19/2023 12:26:55 12/19/1912/19/2023 CBC plt 163 K/? ? ?L 163-33 7 Not Available [address], [address], 12/19/2023 12:26:55 12/19/19 24 12/19/2023 CBC MPV 9.0 fL 9.4-12 .4 low Not Available [address], [address], 12/19/2023 12:26:55 12/19/19 24 12/19/2023 CBC neut% 58.0 % 34.0-6 7.9 Not Available [address], [address], 12/19/2023 12:26:55 12/19/19 24 12/19/2023 CBC neut# 2.38 1.78-5 .38 Not Available [address], [address], 12/19/2023 12:26:55 12/19/19 24 12/19/2023 CBC lymph % 26.0 % 21.8-5 3.1 Not Available [address], [address], 12/19/2023 12:26:55 12/19/19 24 12/19/2023 CBC lymph # 1.07 K/? ? ?L 1.32-3 .57 low Not Available [address], [address], 12/19/2023 12:26:55 12/19/1912/19/2023 CBC mono% 11.9 % 5.3-12 .2 Not Available [address], [address], 12/19/2023 12:26:55 12/19/1912/19/2023 CBC mono# 0.49 0.30-0 .82 Not Available [address], [address], 12/19/2023 12:26:55 12/19/1912/19/2023 CBC eo% 3.2 % 0.8-7. 0 Not Available [address], [address], 12/19/2023 12:26:55 12/19/1912/19/2023 CBC eo# 0.13 0.04-0 .54 Not Available [address], [address], 12/19/2023 12:26:55 12/19/1912/19/2023 CBC baso% 0.7 % 0.2-1. 2 Not Available [address], [address], 12/19/2023 12:26:55 12/19/1912/19/2023 CBC baso# 0.03 0.00-0 .08 Not Available [address], [address], 12/19/2023 12:26:55 12/19/1912/19/2023 CBC RDW-CV 12.1 % 11.6-1 4.4 Not Available [address], [address], 12/19/2023 12:26:55 12/19/1912/19/2023 CBC Ig% 0.200 % 0.000- 1.500 Ig % >0.5 Indic ates possi ble Left Shift Not Available [address], [address], 12/19/2023 12:26:55 12/19/19 24 12/19/2023 CBC Ig# 0.010 0.000- 0.093 Not Available [address], [address], 12/19/2023 12:26:55 12/19/19 24 12/19/2023 CBC NRBC% 0.0 % 0.0-0. 2 Not Available [address], [address], 12/19/2023 12:26:55 12/19/19 24 12/19/2023 CBC NRBC# 0.000 0.000- 0.012 Not Available [address], [address], 12/19/2023 12:26:55 12/19/19 24 12/19/2023 ESR sed rate 3.0 0.0-20 .0 Not Available [address], [address], 12/19/2023 14:59:06 12/19/19 24 12/20/2023 COMP. METAB OLIC PANEL glucose 101 mg/dL 70-100 high Not Available [address], [address], 12/20/2023 11:33:02 12/19/19 24 12/20/2023 COMP. METAB OLIC PANEL BUN 21 mg/dL 7-18 high Not Available [address], [address], 12/20/2023 11:33:02 12/19/19 24 12/20/2023 COMP. METAB OLIC PANEL creatinine 1.1 mg/dL 0.8-1. 3 Not Available [address], [address], 12/20/2023 11:33:02 12/19/19 24 12/20/2023 COMP. METAB OLIC PANEL B/C 19.1 ratio Not Available [address], [address], 12/20/2023 11:33:02 12/19/19 24 12/20/2023 COMP. METAB OLIC PANEL GFR >=60ML /MIN mL/mi n normal >=60m L/min - Nya l or midly reduc ed <60mL /min- Decre ased kidne y funct ion <15mL /min - Kidne y failu re [facility] calcu lates estim ated Glome rular Filtr ation Rate (eGFR ) using the Chron ic Kidne y Disea se Epide miolo gy Colla borat ion (CKD- EPI) Equat ion (Agatha r et. al 2020) as recom roman d by the Natio nal Kidne y Found ation . eGFR is based on age, serum creat inine , and sex. CKD-E PI does not calcu late eGFR by race, does not apply to child cb (age <18 years ), and shoul d not be used in pregn ryan. Not Available [address], [address], 12/20/2023 11:33:02 12/19/19 24 12/20/2023 COMP. METAB OLIC PANEL sodium 144 mmol/ L 136-14 5 Not Available [address], [address], 12/20/2023 11:33:02 12/19/19 24 12/20/2023 COMP. METAB OLIC PANEL potassium 4.7 mmol/ L 3.5-5. 1 Not Available [address], [address], 12/20/2023 11:33:02 12/19/19 24 12/20/2023 COMP. METAB OLIC PANEL chloride 106 mmol/ L 96-107 Not Available [address], [address], 12/20/2023 11:33:02 12/19/19 24 12/20/2023 COMP. METAB OLIC PANEL anion gap 9.8 5.0-15 .0 Not Available [address], [address], 12/20/2023 11:33:02 12/19/19 24 12/20/2023 COMP. METAB OLIC PANEL CO2 28 mmol/ L 21-32 Not Available [address], [address], 12/20/2023 11:33:02 12/19/19 24 12/20/2023 COMP. METAB OLIC PANEL calcium 9.1 mg/dL 8.5-10 .3 Not Available [address], [address], 12/20/2023 11:33:02 12/19/19 24 12/20/2023 COMP. METAB OLIC PANEL total protein 7.4 g/dL 6.4-8. 2 Not Available [address], [address], 12/20/2023 11:33:02 12/19/19 24 12/20/2023 COMP. METAB OLIC PANEL albumin 4.1 g/dL 3.4-5. 0 Not Available [address], [address], 12/20/2023 11:33:02 12/19/19 24 12/20/2023 COMP. METAB OLIC PANEL globulin 3.3 g/dL Not Available [address], [address], 12/20/2023 11:33:02 12/19/19 24 12/20/2023 COMP. METAB OLIC PANEL A/G 1.2 ratio 0.8-2. 0 Not Available [address], [address], 12/20/2023 11:33:02 12/19/19 24 12/20/2023 COMP. METAB OLIC PANEL total bilirubin 1.10 mg/dL 0.00-1 .00 high Not Available [address], [address], 12/20/2023 11:33:02 12/19/19 24 12/20/2023 COMP. METAB OLIC PANEL AST 37 U/L 0-37 Not Available [address], [address], 12/20/2023 11:33:02 12/19/19 24 12/20/2023 COMP. METAB OLIC PANEL ALT 44 U/L 6-63 Not Available [address], [address], 12/20/2023 11:33:02 12/19/19 24 12/20/2023 COMP. METAB OLIC PANEL alk. phos. 59 U/L 50-136 Not Available [address], [address], 12/20/2023 11:33:02 12/19/19 24 12/20/2023 C-TALYA CTIVE PROTE IN (RCRP ) C-reactive protein (rcrp) 0.6 mg/dL 0.5-9. 0 Not Available [address], [address], 12/20/2023 11:33:03 05/09/19 25 05/09/2024 HGB A1C hemoglobin A1C 5.6 % 4.8-6. 0 Goal: <7% in Patie nts with Diabe jan An A1c betwe en 5.7-6 .4% is ident ified as pre-d iabet es and sugge sts risk for progr essio n to diabe jan Two a1c value s of 6.5% or highe r is consi stent with a diagn osis of diabe jan but may need furth er confi rmati on Not Available [address], [address], 05/09/2024 11:08:30 05/09/19 25 05/09/2024 HGB A1C estimated average glucose 114.0 mg/dL Not Available [address], [address], 05/09/2024 11:08:30 05/09/19 25 05/09/2024 BASIC METAB OLIC PANEL glucose 107 mg/dL 70-100 high Not Available [address], [address], 05/09/2024 14:12:57 05/09/19 25 05/09/2024 BASIC METAB OLIC PANEL BUN 16 mg/dL 7-18 Not Available [address], [address], 05/09/2024 14:12:57 05/09/19 25 05/09/2024 BASIC METAB OLIC PANEL creatinine 1.2 mg/dL 0.8-1. 3 Not Available [address], [address], 05/09/2024 14:12:57 05/09/19 25 05/09/2024 BASIC METAB OLIC PANEL B/C 13.3 ratio Not Available [address], [address], 05/09/2024 14:12:57 05/09/19 25 05/09/2024 BASIC METAB OLIC PANEL GFR >=60ML /MIN mL/mi n normal >=60m L/min - Nya l or midly reduc ed <60mL /min- Decre ased kidne y funct ion <15mL /min - Kidne y failu re [facility] calcu lates estim ated Glome rular Filtr ation Rate (eGFR ) using the Chron ic Kidne y Disea se Epide miolo gy Colla borat ion (CKD- EPI) Equat ion (Agatha r et. al 2020) as recom roman d by the Natio nal Kidne y Found ation . eGFR is based on age, serum creat inine , and sex. CKD-E PI does not calcu late eGFR by race, does not apply to child cb (age <18 years ), and shoul d not be used in pregn ryan. Not Available [address], [address], 05/09/2024 14:12:57 05/09/19 25 05/09/2024 BASIC METAB OLIC PANEL sodium 141 mmol/ L 136-14 5 Not Available [address], [address], 05/09/2024 14:12:57 05/09/19 25 05/09/2024 BASIC METAB OLIC PANEL potassium 4.9 mmol/ L 3.5-5. 1 Not Available [address], [address], 05/09/2024 14:12:57 05/09/19 25 05/09/2024 BASIC METAB OLIC PANEL chloride 104 mmol/ L 96-107 Not Available [address], [address], 05/09/2024 14:12:57 05/09/1905/09/2024 BASIC METAB OLIC PANEL anion gap 10.5 5.0-15 .0 Not Available [address], [address], 05/09/2024 14:12:57 05/09/1905/09/2024 BASIC METAB OLIC PANEL CO2 27 mmol/ L 21-32 Not Available [address], [address], 05/09/2024 14:12:57 05/09/19 25 05/09/2024 BASIC METAB OLIC PANEL calcium 8.9 mg/dL 8.5-10 .3 Not Available [address], [address], 05/09/2024 14:12:57 05/09/19 25 05/09/2024 LIPID PANEL cholesterol 172 mg/dL <200 mg/dl Maykel able 200-2 39 mg/dl Borde rline High >240 mg/dl High Not Available [address], [address], 05/09/2024 14:12:58 05/09/19 25 05/09/2024 LIPID PANEL triglyceride s 180 mg/dL <150 mg/dL Nya l 150-1 99 mg/dL Borde rline High 200-4 99 mg/dL High >500 mg/dL Very High Not Available [address], [address], 05/09/2024 14:12:58 05/09/19 25 05/09/2024 LIPID PANEL direct HDL 56 mg/dL <40 mg/dl - Major Risk for CHD >60 mg/dl - Negat jay Risk for CHD Not Available [address], [address], 05/09/2024 14:12:58 05/09/19 25 05/09/2024 DIREC T LDL direct LDL 96 mg/dL RISK CATEG ORY LDL GOAL _ CHD or CHD Risk Equiv alent s <100 mg/dl (10-y ear risk >20%) 2+ Risk Facto rs <130 mg/dl (10-y ear risk <= 20%) 0-1 Risk Facto r? <160 mg/dl ? Almos t all peopl e with 0-1 risk facto r have a 10 year risk <10%, thus 10 year risk asses ment in peopl e with 0-1 risk facto r is not jorge sebastian. Not Available [address], [address], 05/09/2024 14:12:59 05/24/19 25 05/23/2024 CBC WBC 3.93 K/? ? ?L 4.23-9 .07 low Not Available [address], [address], 05/23/2024 15:14:00 05/24/19 25 05/23/2024 CBC RBC 5.10 M/? ? ?L 4.63-6 .08 Not Available [address], [address], 05/23/2024 15:14:00 05/24/19 25 05/23/2024 CBC HGB 15.9 g/dL 13.7-1 7.5 Not Available [address], [address], 05/23/2024 15:14:00 05/24/19 25 05/23/2024 CBC HCT 46.2 % 40.1-5 1.0 Not Available [address], [address], 05/23/2024 15:14:00 05/24/19 25 05/23/2024 CBC MCV 90.6 fL 79.0-9 2.2 Not Available [address], [address]258, 05/23/2024 15:14:00 05/24/19 25 05/23/2024 CBC MCH 31.2 pg 25.7-3 2.2 Not Available [address], [address], 05/23/2024 15:14:00 05/24/19 25 05/23/2024 CBC MCHC 34.4 g/dL 32.3-3 6.5 Not Available [address], [address], 05/23/2024 15:14:00 05/24/19 25 05/23/2024 CBC plt 164 K/? ? ?L 163-33 7 Not Available [address], 79394, 05/23/2024 15:14:00 05/24/19 25 05/23/2024 CBC MPV 9.0 fL 9.4-12 .4 low Not Available [address], 52007, 05/23/2024 15:14:00 05/24/19 25 05/23/2024 CBC neut% 48.8 % 34.0-6 7.9 Not Available [address], 91918, 05/23/2024 15:14:00 05/24/19 25 05/23/2024 CBC neut# 1.92 1.78-5 .38 Not Available [address], [address]89, 05/23/2024 15:14:00 05/24/19 25 05/23/2024 CBC lymph % 31.3 % 21.8-5 3.1 Not Available [address], [address], 05/23/2024 15:14:00 05/24/19 25 05/23/2024 CBC lymph # 1.23 K/? ? ?L 1.32-3 .57 low Not Available [address], 9112[address], 05/23/2024 15:14:00 05/24/19 25 05/23/2024 CBC mono% 12.5 % 5.3-12 .2 high Not Available [address], 798[address], 05/23/2024 15:14:00 05/24/19 25 05/23/2024 CBC mono# 0.49 0.30-0 .82 Not Available [address], [address], 05/23/2024 15:14:00 05/24/19 25 05/23/2024 CBC eo% 6.4 % 0.8-7. 0 Not Available [address], 22082, 05/23/2024 15:14:00 05/24/19 25 05/23/2024 CBC eo# 0.25 0.04-0 .54 Not Available [address], [address], 05/23/2024 15:14:00 05/24/19 25 05/23/2024 CBC baso% 1.0 % 0.2-1. 2 Not Available [address], 627[address], 05/23/2024 15:14:00 05/24/19 25 05/23/2024 CBC baso# 0.04 0.00-0 .08 Not Available [address], 02252, 05/23/2024 15:14:00 05/24/19 25 05/23/2024 CBC RDW-CV 12.4 % 11.6-1 4.4 Not Available [address], [address]561, 05/23/2024 15:14:00 05/24/19 25 05/23/2024 CBC Ig% 0.000 % 0.000- 1.500 Ig % >0.5 Indic ates possi ble Left Shift Not Available [address], 26087, 05/23/2024 15:14:00 05/24/19 25 05/23/2024 CBC Ig# 0.000 0.000- 0.093 Not Available [address], [address]63, 05/23/2024 15:14:00 05/24/19 25 05/23/2024 CBC NRBC% 0.0 % 0.0-0. 2 Not Available [address], 31526, 05/23/2024 15:14:00 05/24/19 25 05/23/2024 CBC NRBC# 0.000 0.000- 0.012 Not Available [address], 31369, 05/23/2024 15:14:00 05/24/19 25 05/23/2024 ESR sed rate 2.0 0.0-20 .0 Not Available [address], [address]39, 05/23/2024 16:20:30 05/24/19 25 05/24/2024 COMP. METAB OLIC PANEL glucose 109 mg/dL 70-100 high Not Available [address], [address], 05/24/2024 15:56:55 05/24/19 25 05/24/2024 COMP. METAB OLIC PANEL BUN 19 mg/dL 7-18 high Not Available [address], [address]642, 05/24/2024 15:56:55 05/24/19 25 05/24/2024 COMP. METAB OLIC PANEL creatinine 1.1 mg/dL 0.8-1. 3 Not Available [address], [address]66, 05/24/2024 15:56:55 05/24/19 25 05/24/2024 COMP. METAB OLIC PANEL B/C 17.3 ratio Not Available [address], [address]84, 05/24/2024 15:56:55 05/24/19 25 05/24/2024 COMP. METAB OLIC PANEL GFR >=60ML /MIN mL/mi n normal >=60m L/min - Nya l or midly reduc ed <60mL /min- Decre ased kidne y funct ion <15mL /min - Kidne y failu re [facility] calcu lates estim ated Glome rular Filtr ation Rate (eGFR ) using the Chron ic Kidne y Disea se Epide miolo gy Colla borat ion (CKD- EPI) Equat ion (Agatha alvarez et. al 2020) as recom roman d by the [facility] . eGFR is based on age, serum creat inine , and sex. CKD-E PI does not calcu late eGFR by race, does not apply to child cb (age <18 years ), and doriul d not be used in pregn ryan. Not Available [address], [address], 05/24/2024 15:56:55 05/24/19 25 05/24/2024 COMP. METAB OLIC PANEL sodium 142 mmol/ L 136-14 5 Not Available [address], 18778, 05/24/2024 15:56:55 05/24/19 25 05/24/2024 COMP. METAB OLIC PANEL potassium 4.7 mmol/ L 3.5-5. 1 Not Available [address], [address]109, 05/24/2024 15:56:55 05/24/19 25 05/24/2024 COMP. METAB OLIC PANEL chloride 106 mmol/ L 96-107 Not Available [address], [address]83, 05/24/2024 15:56:55 05/24/19 25 05/24/2024 COMP. METAB OLIC PANEL anion gap 6.1 5.0-15 .0 Not Available [address], [address]30, 05/24/2024 15:56:55 05/24/19 25 05/24/2024 COMP. METAB OLIC PANEL CO2 30 mmol/ L 21-32 Not Available [address], 6[address], 05/24/2024 15:56:55 05/24/19 25 05/24/2024 COMP. METAB OLIC PANEL calcium 9.1 mg/dL 8.5-10 .3 Not Available [address], 8[address]84, 05/24/2024 15:56:55 05/24/19 25 05/24/2024 COMP. METAB OLIC PANEL total protein 7.0 g/dL 6.4-8. 2 Not Available [address], 28556, 05/24/2024 15:56:55 05/24/19 25 05/24/2024 COMP. METAB OLIC PANEL albumin 4.0 g/dL 3.4-5. 0 Not Available [address], [address]258, 05/24/2024 15:56:55 05/24/19 25 05/24/2024 COMP. METAB OLIC PANEL globulin 3.0 g/dL Not Available [address], [address], 05/24/2024 15:56:55 05/24/19 25 05/24/2024 COMP. METAB OLIC PANEL A/G 1.3 ratio 0.8-2. 0 Not Available [address], [address], 05/24/2024 15:56:55 05/24/19 25 05/24/2024 COMP. METAB OLIC PANEL total bilirubin 0.90 mg/dL 0.00-1 .00 Not Available [address], [address], 05/24/2024 15:56:55 05/24/19 25 05/24/2024 COMP. METAB OLIC PANEL AST 30 U/L 0-37 Not Available [address], [address], 05/24/2024 15:56:55 05/24/19 25 05/24/2024 COMP. METAB OLIC PANEL ALT 41 U/L 6-63 Not Available [address], [address], 05/24/2024 15:56:55 05/24/19 25 05/24/2024 COMP. METAB OLIC PANEL alk. phos. 54 U/L 50-136 Not Available [address], [address], 05/24/2024 15:56:55 05/24/19 25 05/24/2024 C-TLAYA CTIVE PROTE IN (RCRP ) C-reactive protein (rcrp) 0.8 mg/dL 0.5-9. 0 Not Available [address], [address], 05/24/2024 15:56:57 Result Notes None recorded. 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 Wilman Nash MD [address] [place] [address], , [facility] 6 17:15:55 Benign polyp of colon 097919300 Completed 201507/24/2020 Lalo Graham MD [address] [place] [address], , [facility] 1 14:28:35 Synovial cyst of left knee 59795604356 9102 [facility] 15:26:[facility] Peripher al venous insuffic iency 89252688 Active 2018 Dulce Craft MA [facility] 9 15:26:45 Osteoart hritis of knee 651588886 Active 2018 Dulce Craft MA [facility] 9 15:26:46 Type 2 diabetes mellitus without complica tion 524020883 Active 2021 coded 07/24/20 Wellness Bela Grant LPN [facility] 2 10:34:38 Polymyal sanaz rheumati ca 95470766 Active 2021 coded 07/01/21 Rheumato logy consult. Bela Grant LPN [facility] 2 10:35:11 COVID-19 434809656 Active 2021 Ree hein PA-C [address] [place] [address], [id number] , [facility] 2 10:00:47 Rheumato id arthriti s 11637081 Active 2022 Kalpana Freeman MD [address] [place] [address], [id number] , [facility] 3 08:26:49 Mixed hyperlip idemia 943111509 Completed 200105/18/2012 Not Available [facility] 3 03:06:20 Testicul ar hypofunc tion 608355037 Completed 200105/18/2012 Not Available [facility] 3 03:06:20 Disorder of tendon of shoulder region 29990259 Completed 200005/18/2012 Not Available [facility] 3 03:06:20 Impotenc e of organic origin Active 2001 Wilman Nash MD [address] [place] [address], [phone] , [facility] 6 09:51:24 Retinal vascular disorder 88145258 Active 2005 Not Available [facility] 3 03:06:20 Nonvenom ous insect bite of multiple sites 988203624 Completed 200501/23/2013 Not Available [facility] 3 02:02:58 Gastroes ophageal reflux disease 637765086 Active 2001 Not Available [facility] 3 03:06:20 Calcific tendinit is of shoulder 60087722 Active 2000 Not Available [facility] 3 03:06:20 Hyperlip idemia 91436176 Active 2007 Darby Das null, [facility] 6 09:39:35 Impaired fasting glycemia 992351717 Completed 200709/21/2021 Removal Reason: E11.9 coded 07/24/20 Wellness FREDERIC Whitt, [facility] 2 10:34:26 Neck pain 86519054 Completed 200005/18/2012 Not Available [facility] 3 03:06:20 Plantar fasciiti s [id number] Active 2001 Not Available [facility] 3 03:06:20 Glucose level outside referenc e range [id number] Completed 200705/18/2012 Not Available [facility] 3 03:06:20 Pure hypercho lesterol emia 743986907 Active 2001 [facility] 09:56[facility]32 Problem Notes None recorded. Procedures Surgical History Date Name Laterality Status Provider Name and Address Organization Details Recorded Time 11/08/19 24 Medicare Wellness Visit completed MADDI Raines [facility] 10/26/2023 13:39:17 11/08/19 24 Cardiovascular disease risk reduction counseling completed Kalpana Freeman MD [address] [place], [address], [facility] 11/11/2023 08:33:25 02/08/20 23 35255: Therapeutic Exercise completed Chris Bell, PT [address] [place], [address], [facility] 02/07/2023 09:43:49 02/08/20 Treatment and Advice completed Chris Bell, PT [address] [place], [address], [facility] 02/07/2023 09:37:23 01/18/20 23 74905: Therapeutic Exercise completed Chris Bell, PT [address] [place], [address], [facility] 01/20/2023 16:09:57 01/18/20 23 Treatment and Advice completed Chris Bell, PT [address] [place], [address], [facility] 01/17/2023 16:10:15 12/28/19 Physical Activity Counselling completed Chris Bell, PT [address] [place], [address], [facility] 12/27/2022 11:42:25 12/28/19 70805: PT Eval Low Complexity completed Chris Bell, PT [address] [place], [address], [facility] 12/27/2022 11:42:25 12/28/19 Treatment and Advice completed Chris Bell, PT [address] [place], [address], [facility] 12/27/2022 11:43:44 10/25/19 23 Medicare Wellness Visit completed [facility] 10/24/2022 09:14:05 10/25/19 23 Cardiovascular disease risk reduction counseling completed Kalpana Freeman MD [address] [place] [address], [address], [facility] 10/26/2022 08:25:27 05/31/19 23 Alcohol overuse counseling completed Kalpana Freeman MD [address] [place] [address], [address], [facility] 05/31/2022 10:27:44 10/21/19 22 Medicare Wellness Visit completed Kalpana Freeman MD [address] [place] [address], [address], [facility] 10/21/2021 09:15:24 10/21/19 22 Alcohol use screening completed Kalpana Freeman MD [address] [place] [address], [address], [facility] 10/21/2021 09:15:24 10/21/19 22 Cardiovascular disease risk reduction counseling completed Kalpana Freeman MD [address] [place] [address], [address], [facility] 10/21/2021 09:15:24 07/25/19 21 Medicare Wellness Visit completed Geovanna Auguste [facility] 07/24/2020 13:53:16 07/25/19 21 prevention-cardiov ascular risk reduction counseling completed Geovanna Auguste [facility] 07/24/2020 13:53:16 07/25/19 21 prevention-annual alcohol misuse screening completed Geovanna Auguste [facility] 07/24/2020 13:53:16 07/15/19 20 Medicare Wellness Visit completed Allisonjuan r Otoole MA [facility] 07/15/2019 08:36:30 07/15/19 20 prevention-cardiov ascular risk reduction counseling completed Allison Otoole MA [facility] 07/15/2019 08:36:30 07/15/19 20 prevention-annual alcohol misuse screening completed Allison Otoole MA [facility] 07/15/2019 08:36:30 02/23/20 19 Corticosteroid Injection completed Lalo Graham MD [address] [place], [address], [facility] 02/22/2019 13:26:25 06/13/19 19 Medicare Wellness Visit completed Pebbles Dalton [facility] 06/12/2018 16:15:46 02/14/20 18 30360: Therapeutic Exercise completed Chris Bell, PT [address] [place], [address], [facility] 02/13/2018 10:09:27 02/14/20 18 Treatment and Advice completed Chris Bell, PT [address] [place], [address], [facility] 02/13/2018 10:35:45 01/20/20 18 40055: Therapeutic Exercise completed Chris Bell, PT [address] [place], [address], [facility] 01/21/2018 12:50:24 01/20/20 18 Treatment and Advice completed Chris Bell, PT [address] [place], [address], [facility] 01/19/2018 16:27:43 11/24/19 18 95268: Therapeutic Exercise completed Chris Bell, PT [address] [place], [address], [facility] 11/23/2017 07:05:11 11/24/19 18 Treatment and Advice completed Chris Bell, PT [address] [place], [address], [facility] 11/23/2017 07:32:59 11/11/19 18 84375: Therapeutic Exercise completed Chris Bell, PT [address] [place], [address], [facility] 11/10/2017 13:33:07 11/11/19 18 Treatment and Advice completed Chris Bell, PT [address] [place], [address], [facility] 11/10/2017 13:33:01 11/04/19 18 Physical Activity Counselling completed Chris Bell, PT [address] [place], [address], [facility] 11/03/2017 13:41:09 11/04/19 18 40334: PT Eval Low Complexity completed Chris Bell, PT [address] [place], [address], [facility] 11/03/2017 13:41:09 11/04/19 18 Treatment and Advice completed Chris Bell, PT [address] [place], [address], [facility] 11/03/2017 13:59:48 10/31/19 18 Corticosteroid Injection completed Lalo Graham MD [address] [place] [address], [address], [facility] 10/30/2017 14:55:53 03/23/19 17 Refraction completed Lilia Douville [facility] 03/23/2016 15:29:48 09/18/19 16 Tassoni - Colonoscopy completed Phuc Lovell MD [address] [place] [address], [address], [facility] 09/18/2015 08:25:21 Vasectomy completed Not Available [facility] 01/20/2011 06:06:16 Imaging Results None recorded. Procedure Notes None recorded. Medical Equipment None Reported. Allergies No known drug allergies Medications Name Sig Start Date Stop Date Status Note LastModified by Organization Details LastModified Time amoxicilli n 500 mg capsule 10/23 completed Not Available Not Available Not Available ibuprofen 800 mg tablet Take 1 tablet 3 times a day by oral route with meals. 10/30 completed Not Available Not Available Not Available alendronat e 70 mg tablet TAKE 1 TABLET BY MOUTH ONCE A WEEK FOR 28 DAYS 02/23 completed taken off of 2am Not Available Not Available Not Available prednisone 5 mg tablet TAKE 1 TABLET BY MOUTH ONCE DAILY FOR 30 DAYS 10/20 completed Not Available Not Available Not Available prochlorpe razine maleate 10 mg tablet 03/17 completed Not Available Not Available Not Available simvastati n 40 mg tablet TAKE 1 TABLET AT BEDTIME active Not Available Not Available No t Available meloxicam 7.5 mg tablet TAKE 1 TABLET BY MOUTH ONCE DAILY 04/13 completed Not Available Not Available Not Available oxycodone- acetaminop hen 5 mg-325 mg tablet TAKE 1 TABLET BY MOUTH EVERY 6 HOURS NEEDED FOR PAIN MAX 4 TABS PER 24 HOURS 05/30 completed Not taking 05/30/22 PP Not Available Not Available Not Available prednisone 1 mg tablet TAKE 1 TABLET BY MOUTH ONCE DAILY 05/30 completed Not taking 05/30/22 PP Not Available Not Available Not Available Viagra 100 mg tablet TAKE 1/2 TO 1 TABLET 30 MINUTES TO 4 HOURS BEFORE SEX 2017 active Not Available Not Available Not Avai lable hydroxychl oroquine 200 mg tablet TAKE 1 TABLET BY MOUTH TWICE DAILY active Not Available Not Available No t Available doxycyclin e hyclate 100 mg tablet TAKE 1 TABLET BY MOUTH TWICE DAILY FOR 14 DAYS 02/25 completed Not Available Not Available Not Available naproxen 500 mg tablet TAKE 1 TABLET BY MOUTH TWICE A DAY FOR 7 DAYS 05/30 completed Not Available Not Available Not Available diazepam 5 mg tablet Take 1 tablet twice a day by oral route as needed. 10/30 completed Not Available Not Available Not Available GaviLyte-G 236 gram-22.74 gram-6.74 gram-5.86 gram oral solution MIX PREP AND TAKE DIRECTED FOR 1 DAY 11/07 completed Not Available Not Available Not Available Shingrix (PF) 50 mcg/0.5 mL intramuscu lar suspension , kit 08/11 completed Not Available Not Available Not Available Paxlovid 300 mg (150 mg x 2)-100 mg tablets in a dose pack Take 1 dose pk by oral route as directed for 5 days. 05/30 completed Not Available Not Available Not Available Vitals Date Recorded Body weight Body mass index (BMI) Body height Oxygen saturation Oxygen saturation in Arterial blood by Pulse oximetry Heart rate Systolic blood pressure Diastolic blood pressure Provider Name and Address Organization Details Last Updated DateTime 4 91783.8 g 27.4 kg/m2 174.24 cm 96 % 96 % 70 /min 118 mm[Hg] 62 mm[Hg] Xiomara Luther MA [facility] 4 09:06:12 Date Recorded Body height Body mass index (BMI) Body weight Oxygen saturation Oxygen saturation in Arterial blood by Pulse oximetry Heart rate Systolic blood pressure Diastolic blood pressure Provider Name and Address Organization Details Last Updated DateTime 5 174.24 cm 28.1 kg/m2 19019.0 7 g 97 % 97 % 70 /min 116 mm[Hg] 64 mm[Hg] Xiomara Luther MA [facility] 5 08:34:54 Social History Question Answer Notes LastModified by Organizat ion Details LastModified Time Tobacco Smoking Status Never Smoker Not Available [facility] 01/20/2011 04:54:19 Do You Have An Advance Directive? No FORM GIVEN 07/13/09-r egiven Information not available 07/13/2009 How Much Tobacco Do You Chew? None Information n ot available 01/20/2011 Which Illicit Or Recreational Drugs Have You Used? None Information n ot available 01/20/2011 Education 4 Year College Information not available 01/20/2011 How Many Days In The Past Year Have You Had A Heavy Drinking Consumption (4+ Female, 5+ Male)? 0 [email or web address] Information not available 05/18/2012 Live Alone Or With Others? With Others [id number] Information n ot available 01/20/2011 Patient Has Health Care Proxy Signed And In Chart No [email or web address] Information not available 01/17/2018 CCM Consent Discussion 12/11/2018 [email or web address] Information not available 12/12/2018 Marital Status In formation not available 01/20/2011 Mosquito Repellent Used Routinely Yes [email or web address] Information not available 07/15/2019 What Was The Date Of Your Most Recent Tobacco Screening? 05/15/2024 [email or web address] Information not available 05/15/2024 How Many Children Do You Have? 2 Information n ot available 01/20/2011 What Is Your Relationship Status? Information not available 10/20/2021 Seat Belts Used Routinely Yes Information n ot available 01/20/2011 Are You Sexually Active? Yes Information n ot available 01/20/2011 Smoke Alarm In Home Yes Information n ot available 01/20/2011 General Stress Level Medium Information not available 05/18/2012 Sex: Male Functional Status Question Answer Note LastModified by Organizat ion Details LastModified Time Do you use any illicit or recreational drugs? No Information not available 10/20/2021 Do you or have you ever used any other forms of tobacco or nicotine? No [email or web address] Information not available 11/08/2023 Do you or have you ever used smokeless tobacco? Never used smokeless tobacco Information not available 12/11/2018 What is your occupation? retired [email or web address] Information not available 07/24/2020 Do you or have you ever used e-cigarettes or vape? Never used electronic cigarettes Information not available 12/11/2018 Mental Status None recorded. Family History Nothing Reported Notes:father-spinal stenosis mother- [facility]- brother dm1 Medical History Condition Response Hyperlipidemia Y Immunizations Vaccine Type Date Status Note Provider Nam e and Address Organization Details Recorded Time Hep A, unspecified formulation 1 completed Not Available [facility] 01/19/2011 05:20:34 typhoid, unspecified formulation 1 completed Not Available [facility] 01/19/2011 05:20:34 Td(adult) unspecified formulation 1 completed Not Available [facility] 01/19/2011 05:20:34 Influenza, split virus, trivalent, preservative 1 completed Not Available [facility] 03/23/2019 02:38:46 Tdap 1 completed Not Available [facility] 03/23/2019 02:30:28 influenza, seasonal, intradermal, preservative free 3 completed Not Available [facility] 03/23/2019 02:30:29 Influenza, split virus, quadrivalent, PF 3 completed Not Available [facility] 03/23/2019 02:38:04 Influenza, split virus, trivalent, PF 4 completed Not Available [facility] 03/23/2019 02:26:43 zoster live 4 completed Not Available [facility] 03/23/2019 02:33:41 Influenza, split virus, quadrivalent, PF 6 completed Not Available [facility] 03/23/2019 02:20:14 Influenza, split virus, quadrivalent, PF 6 completed Not Available [facility] 03/23/2019 02:21:11 Influenza, split virus, quadrivalent, PF 7 completed Not Available [facility] 03/23/2019 02:22:07 Pneumococcal conjugate PCV 13 8 completed Not Available [facility] 03/23/2019 02:25:40 Influenza, high-dose, trivalent, PF 8 completed Not Available [facility] 03/23/2019 02:23:02 Influenza, high-dose, trivalent, PF 9 completed Not Available [facility] 03/23/2019 02:36:22 Influenza, high-dose, quadrivalent, PF 0 completed Nisha Hill MA null, [facility] 12/25/2019 10:28:08 zoster recombinant 9 completed Xiomara Luther MA null, [facility] 11/08/2023 09:01:29 Tdap 1 completed eNna Neville LPN null, [facility] 07/24/2020 14:53:16 pneumococcal polysaccharide PPV23 1 completed Parisa Brothers RN null, [facility] 11/06/2020 11:47:44 Influenza, high-dose, quadrivalent, PF 1 [facility] 15:53:41 COVID-19, mRNA, LNP-S, PF, 30 mcg/0.3 mL dose 1 [facility] 11/08/2023 09:01:29 COVID-19, mRNA, LNP-S, PF, 30 mcg/0.3 mL dose 1 [facility] 11/08/2023 09:01:29 Influenza, high-dose, quadrivalent, PF 3 [facility] 12/02/2022 10:16:44 zoster recombinant 9 [facility] 11/08/2023 09:01:29 COVID-19, mRNA, LNP-S, PF, 30 mcg/0.3 mL dose 1 [facility] 11/08/2023 09:01:29 COVID-19, mRNA, LNP-S, PF, 30 mcg/0.3 mL dose 2 [facility] 11/08/2023 09:01:29 Influenza, split virus, quadrivalent, preservative 2 completed [facility] 11/08/2023 09:01:29 COVID-19, mRNA, LNP-S, bivalent, PF, 30 mcg/0.3 mL dose 2 completed [facility] 11/08/2023 09:01:29 RSV, recombinant, protein subunit RSVpreF, adjuvant reconstituted, 0.5 mL, PF 3 completed [facility] 11/08/2023 09:01:29 COVID-19, mRNA, LNP-S, PF, 50 mcg/0.5 mL 3 [facility] 11/08/2023 09:01:29 COVID-19, mRNA, LNP-S, PF, zenon-sucrose, 30 mcg/0.3 mL 4 completed [facility] 11/08/2023 09:01:29 Influenza, high-dose, quadrivalent, PF 2 [facility] 11/08/2023 09:01:29 COVID-19, mRNA, LNP-S, PF, 30 mcg/0.3 mL dose, zenon-sucrose 2 completed [facility] 11/08/2023 09:01:29 influenza, unspecified formulation 4 completed [facility] 01/29/2024 11:45:45 HepB-CpG 5 completed [facility] 07/10/2024 15:20:40 COVID-19, mRNA, LNP-S, PF, zenon-sucrose, 30 mcg/0.3 mL 5 completed [facility] 07/10/2024 15:21:41 Past Encounters Encounter ID Performer Location Encounter Start Date Encounter Closed Date Diagnosis/Indication Diagnosis SNOMED-CT Code Diagnosis ICD10 Code Diagnosis Note [id number] Gerhard Noonan. , [facility], [address] [place] [address] 05/25/2000 16:30:00 03/26/2008 02:02:29 [id number] Chris Mondragon i, PT Physical Therapy, [facility] [address] [place] [address] 06/01/2000 17:30:00 03/26/2008 02:02:29 [id number] Chris Mondragon i, PT Physical Therapy, [facility] [address] [place] [address] 06/08/2000 17:30:00 03/26/2008 02:02:29 [id number] Chris Mondragon i, PT Physical Therapy, [address] [address] 06/19/2000 16:00:00 03/26/2008 02:02:29 [id number] Chris Mondragon i, PT Physical Therapy, [facility] [address] [place] [address] 06/26/2000 16:30:00 03/26/2008 02:02:29 [id number] Wilman Nash MD , [facility], [address] [place] [address] 08/04/2000 15:15:00 03/26/2008 02:02:29 [id number] TREATMENT NURSE [facility], [facility], [address] [place] [address] 08/11/2000 15:00:00 03/26/2008 02:02:29 [id number] Gerhard Noonan [facility], [address] [place] [address] 09/04/2001 16:13:20 03/26/2008 02:02:29 [id number] Gerhard Noonan [facility], [address] [place] [address] 10/04/2001 14:32:17 03/26/2008 02:02:29 [id number] [facility] - [address] [address] 01/30/2002 08:51:16 03/26/2008 02:02:29 [id number] Gerhard Noonan , [facility], [address] [place] [address] 02/07/2002 15:46:58 03/26/2008 02:02:29 [id number] Chris Mondragon i, PT Physical Therapy, [address] [address] 02/11/2002 13:27:17 03/26/2008 02:02:29 [id number] [facility] - [address] [address] 02/14/2002 08:15:00 03/26/2008 02:02:29 [id number] Gerhard Noonan [facility], [address] [place] [address] 02/18/2002 13:48:21 03/26/2008 02:02:29 [id number] Chris Mondragon i, PT Physical Therapy, [facility] [address] [place] [address] 02/19/2002 13:59:32 03/26/2008 02:02:29 [id number] [facility] - [address] [address] 07/19/2002 08:53:24 03/26/2008 02:02:29 [id number] Gerhard Noonan [facility], [address] [place] [address] 07/30/2002 09:57:53 03/26/2008 02:02:29 [id number] [facility] - [address] [address] 12/06/2002 07:38:41 12/06/2002 07:38:44 [id number] Gerhard Noonan [facility], [address] [place] [address] 12/17/2002 08:43:05 12/17/2002 16:58:07 [id number] [facility] - [address] [address] 01/27/2003 07:59:52 01/27/2003 08:00:18 [id number] Gerhard Noonan [facility], [address] [place] [address] 02/03/2003 08:20:32 02/03/2003 15:07:36 [id number] [facility] - [address] [address] 10/17/2003 08:05:08 10/17/2003 08:05:14 [id number] Gerhard Noonan [facility], [address] [place] [address] 01/02/2004 08:32:01 01/02/2004 16:30:23 [id number] [facility] - [address] [address] 02/10/2004 07:32:35 02/10/2004 07:32:39 [id number] [facility] - [address] [address] 02/19/2004 07:35:32 02/19/2004 07:35:38 [id number] Jailene Keller, Eye Care, [facility] [address] [place] [address] 03/18/2005 08:01:02 03/26/2008 02:02:29 [id number] [facility] - [address] [address] 03/21/2005 07:37:27 03/21/2005 07:37:32 [id number] Gerhard Noonan [facility], [address] [place] [address] 03/29/2005 08:29:06 03/29/2005 11:04:52 [id number] Gerhard Noonan [facility], [address] [place] [address] 05/17/2005 15:54:51 03/26/2008 02:02:29 [id number] [facility] - [address] [address] 03/24/2006 07:26:34 03/24/2006 07:26:39 [id number] Gerhard Noonan [facility], [address] [place] [address] 03/31/2006 11:32:22 04/03/2006 08:54:33 [id number] [facility] - [address] [address] 02/14/2007 07:19:07 02/14/2007 07:19:11 [id number] [facility] - [address] [address] 07/18/2007 08:10:29 07/18/2007 08:10:33 [id number] Gerhard Noonan [facility], [address] [place] [address] 07/17/2007 14:09:34 03/26/2008 02:02:29 [id number] [facility] - [address] [address] 12/13/2007 07:25:51 12/13/2007 07:25:55 [id number] [facility] - [address] [address] 02/22/2008 07:42:41 02/22/2008 07:42:45 [id number] [facility] - [address] [address] 02/22/2008 00:00:00 03/26/2008 02:02:29 [id number] Wilman Nash MD , [facility], [address] [place] [address] 07/13/2009 11:16:26 07/15/2009 09:23:10 [id number] Wilman Nash MD , [facility], [address] [place] [address] 12/13/2010 08:48:26 12/14/2010 11:42:06 [id number] [facility] , [facility], [address] [place] [address] 03/20/2012 06:16:31 03/20/2012 16:42:54 [id number] Wilman Nash MD , [facility], [address] [place] [address] 05/18/2012 15:26:48 05/21/2012 11:45:42 [id number] Justin Olivarez MD [facility] , [facility] [address] [place] [address] 05/18/2012 16:17:37 05/21/2012 11:38:21 [id number] Wilman Nash MD , [facility], [address] [place] [address] 02/26/2013 10:44:27 02/26/2013 11:40:59 Influenza vaccine needed [id number] 480 [id number] Wilman Nash MD , [facility], [address] [place] [address] 04/01/2013 09:29:59 04/01/2013 13:29:38 Epistaxis 58570456 right nostril packed with vasoliine gauze. remove later today and use saline spray freely. don't blow nose.. I wonder if bleeding was more poserior. If bleeds again, needs to go to the ER. ? 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 Obesity 491795291 low ca rb diet and resume exercise Varicella vaccination 87859810 Mixed hypercholesterolemia and hypertriglyceridemia 806493257 [id number] Wilman Nash MD , [facility], [address] [place] [address] 03/16/2015 08:52:53 03/16/2015 09:42:21 Adult health examination 290772585 Z00.00 see Risk Assessment and Lifestyle Change Counseling section above Counseling 482766150 Z71 .9 Impotence of organic origin 265248713 N52.9 viagra Screening for malignant neoplasm of colon 803666604 Z12.11 Alcohol dependence 90076 003 F10.20 Screening for disorder 573136863 Z13.9 Keratosis pilaris 124220 5 Q82.8 oisturizin g creams- oatmeal soaps Active or passive immunization 635681723 Z23 [id number] Phuc Lovell MD [facility], [address] [address] 09/18/2015 07:00:32 09/18/2015 14:04:53 [id number] Wilman Nash MD , [facility], [address] [place] [address] 02/25/2016 15:05:35 02/25/2016 15:22:45 Active or passive immunization 680070388 Z23 [id number] Wilman Nash MD , [facility], [address] [place] [address] 03/11/2016 13:22:29 03/11/2016 13:57:23 Abscess 031012904 L02.91 Enc warm soaks for 15-20 mins 4x/day. Started on antibiotic s as below. Leave open to air unless this opens and starts draining, then cover with bacitracin bandaid dsg. F/u here if not resolving or sx worsening. [id number] Wilman Nash MD , [facility], [address] [place] [address] 03/17/2016 08:59:37 03/17/2016 09:45:10 Adult health examination 423550514 Z00.00 see Risk Assessment and Lifestyle Change Counseling section above Counseling 602840920 Z71 .9 Hypertriglyceridemia 302 845094 E78.1 Eruption 858747451 R21 upper left back ? actinic keratosis- - follow return if more prominent for cryo treatment [id number] Raquel Castaneda, OD Eye Care, [facility] [address] [place] [address] 03/23/2016 15:08:23 03/23/2016 16:28:09 Presbyopia 89494082 H52.4 Ophthalmic examination and evaluation 46389932 Z01.00 ocular health wnl OU; pt ed on importance of regular eye exams. RTC 1- 2 yrs CEE or prn. [id number] Marybel Welch NP , [facility], [address] [place] [address] 01/14/2017 09:32:59 01/14/2017 09:43:21 Active or passive immunization [id number] Z23 [id number] Wilman Nash MD , [facility], [address] [place] [address] 03/21/2017 08:50:45 03/21/2017 09:32:14 Adult health examination 440137260 Z00.00 see Risk Assessment and Lifestyle Change Counseling section above Counseling 194821255 Z71 .9 Impotence of organic origin 108413660 N52.9 viagra Pure hypercholesterolemia 377957339 E78.00 on statin [id number] Lalo Graham MD , [facility], [address] [place] [address] 09/11/2017 11:58:30 09/12/2017 10:48:14 Backache 548038315 M54.9 With muscle spasm. Pt has 7 hour flight tomorrow and concerned because very painful to sit upright. Will try alternatin g ice/heat to low back, start high dose ibuprofen with food and given a few valium to use prn for his flights. F/u prn if not improving or sx worsening. Active or passive immunization 647396564 Z23 [id number] Lalo Graham MD , [facility], [address] [place] [address] 10/30/2017 13:39:54 10/30/2017 14:19:14 Knee pain 28280824 M25.561 M25.562 Patient with underlying knee DJD presents with increased anterior and medial knee pain. No acute injury. No ligamentou s instabilit y. Corticoste roid injection administer ed into the right medial knee today using a sterile technique. Patient tolerated the procedure well. Advised to monitor for any swelling, pain, increased redness, fever or chills. Encouraged NSAIDs prn. Recommende d to start Physical Therapy. Also discussed home quad strengthen ing exercises. Impotence of organic origin 543274247 N52.9 [id number] Chris Bell , PT Physical Therapy, [address] [address] 11/03/2017 13:25:23 11/09/2017 09:09:32 Pain in right knee [id number] 49104 M25.561 67 year old {{female m nerissa*}} with findings most consistent with right knee pain with mobility deficit. Patient has significan t functional limitation in their {{activiti es of daily living act ivities of daily living and work capacity a ctivities of daily living and exercise capacity a ctivities of daily living and recreation *}}. Skilled physical therapy is needed to safely and progressiv mahi address impairment s and functional limitation s as outlined below. Patient Goals: Be able to bend, squat, kneel, walk long distance and run short distances without knee pain for ADLs and hiking. Clinical Goals: 1. Demonstrat e symmetric pain free active, passive and resisted motions of the {{knees and hips# neck and upper extremitie s shoulder elbow, forearm and wrist trun k and lower extremitie s hip knee ankle}}. 2. Demonstrat e sufficient muscular endurance to meet functional demands. Treatment Plan: Patient to return for {{4 6 8* 1 0}} visits over {{4 8 12*} } weeks. We expect significan t change in pain, impairment and function in this time frame. Treatment to Include: Therapeuti c exercise and manual therapy Pain in left knee 390273 6060 36784 M25.411 [id number] Chris Bell , PT Physical Therapy, [address] [address] 11/10/2017 12:49:23 11/13/2017 15:53:43 Pain in right knee 6445834701 87580 M25.561 Patient Goals: Be able to bend, squat, kneel, walk long distance and run short distances without knee pain for ADLs and hiking. Clinical Goals: 1. Demonstrat e symmetric pain free active, passive and resisted motions of the {{knees and hips# neck and upper extremitie s shoulder elbow, forearm and wrist trun k and lower extremitie s hip knee ankle}}. 2. Demonstrat e sufficient muscular endurance to meet functional demands. Treatment Plan: Patient to return for {{4 6 8* 1 0}} visits over {{4 8 12*} } weeks. We expect significan t change in pain, impairment and function in this time frame. Treatment to Include: Therapeuti c exercise and manual therapy Pain in left knee 399837 1579 67905 M25.619 [id number] Chris Bell , PT Physical Therapy, [address] [address] 11/23/2017 06:57:30 11/24/2017 09:00:01 Pain in right knee 0590012562 20168 M25.561 Patient Goals: Be able to bend, squat, kneel, walk long distance and run short distances without knee pain for ADLs and hiking. Clinical Goals: 1. Demonstrat e symmetric pain free active, passive and resisted motions of the {{knees and hips# neck and upper extremitie s shoulder elbow, forearm and wrist trun k and lower extremitie s hip knee ankle}}. 2. Demonstrat e sufficient muscular endurance to meet functional demands. Treatment Plan: Patient to return for {{4 6 8* 1 0}} visits over {{4 8 12*} } weeks. We expect significan t change in pain, impairment and function in this time frame. Treatment to Include: Therapeuti c exercise and manual therapy Pain in left knee 439703 9927 80158 M25.498 [id number] Lalo Graham MD , [facility], [address] [place] [address] 12/25/2017 08:07:52 12/28/2017 16:22:58 Active or passive immunization 156015896 Z23 [id number] Chris Bell , PT Physical Therapy, [address] [address] 01/19/2018 15:59:16 01/22/2018 08:13:33 Pain in right knee 0160042124 99959 M25.561 Patient Goals: Be able to bend, squat, kneel, walk long distance and run short distances without knee pain for ADLs and hiking.() His knee pain is less present during the day for activities such as walking squatting and kneeling. He has yet to return to walking longer distances of running. We will carry thes goals forward Clinical Goals: 1. Demonstrat e symmetric pain free active, passive and resisted motions of the {{knees and hips# neck and upper extremitie s shoulder elbow, forearm and wrist trun k and lower extremitie s hip knee ankle}}. 2. Demonstrat e sufficient muscular endurance to meet functional demands. (01/19/18) ROM has improved in both knee with some continued flexion loss in his right. Continuing to work on strength and endurance for higher level function Treatment Plan: Patient to return for {{4* 6 8 1 0}} visits over {{4 8* 12} } weeks. We expect significan t change in pain, impairment and function in this time frame. Treatment to Include: Therapeuti c exercise and manual therapy Pain in left knee 427338 2373 60873 M25.551 [id number] Chris Bell , PT Physical Therapy, [facility] [address] [place] [address] 01/19/2018 16:44:03 01/19/2018 16:44:22 [id number] Chris Bell , PT Physical Therapy, [address] [address] 02/13/2018 09:58:22 02/13/2018 16:57:13 Pain in right knee 0558070130 06480 M25.561 Pain in left knee 434253 6909 48106 M25.662 [id number] Lalo Graham MD , [facility], [address] [place] [address] 06/12/2018 16:07:49 06/12/2018 17:36:02 Adult health examination 027011487 Z00.00 See Risk Assessment and Lifestyle Change Counseling section above. Colonoscop y in 09/2015 showed two adenomatou s polyps. Recommends 5 year surveillan ce. Counseling [id number] Z71 .9 Depression screening 171 155745 Z13.89 depression screening tool administer ed, entered into emr, scored and discussed, time greater than 7.5 minutes Knee pain 27875319 M25.5 61 M25.562 Patient with underlying knee DJD presents with increased anterior and medial knee pain. No acute injury. No ligamentou s instabilit y. Improved after corticoste roid injection previously . Continuing with quad strengthen ing exercises. Mixed hyperlipidemia 267 169004 E78.2 Continue Simvastati n. States has enough medication s. Continue with low fat/choles terol diet. Discussed about decreasing ice cream consumptio n and re-startin g Fish Oil 1000-1200m g bid given elevated TG and low HDL. Active or passive immunization 673615674 Z23 Hyperglycemia 07635160 R 73.9 [id number] NISSA Arce, [facility], [address] [place] [address] 11/09/2018 11:03:23 11/09/2018 14:43:20 Edema of lower extremity 972897453 R60.0 r/o DVT u/s and labs today Alcohol dependence 75649 003 F10.20 patient states average two drinks per day. Suggest slow reduction , consider some abstinent days. [id number] Marybel Welch NP , [facility], [address] [place] [address] 11/16/2018 14:51:02 11/16/2018 15:26:01 Synovial cyst of left knee 1367104795 27256 M71.22 Discussed bakers cyst related to OA Peripheral venous insufficiency 14010847 I87.2 Wear compressio n knee high stockings - lowest compressio n. Elevated and follow up PRN - has appt with PCP next month Osteoarthr itis of knee 712318447 M17.9 [id number] MD LUISA Quintana, [facility], [address] [place] [address] 12/11/2018 14:58:04 12/11/2018 16:07:02 Active or passive immunization 910136206 Z23 Mixed hyperlipidemia 267 489235 E78.2 Continue Simvastati n. States has enough medication s. Continue with low fat/choles terol diet. Discussed about decreasing ice cream consumptio n and continuing Fish Oil 1000-1200m g bid given elevated TG and low HDL. Gastroesop hageal reflux disease 591486041 K21.9 Stable. Not on any medication s. No BRBPR or melena. Adenomatou s polyp of colon 685663399 D12.6 Previously had colonoscop y in 09/2015 with adenomatou s polyp. Repeat surveillan ce in 5 years (due in 2020). Osteoarthr itis of knee 895277175 M17.9 Bilateral, but right side worse. Continues to ride bicycle. No limitation with biking, but difficulty with walking downhill when hiking. Previously tried a corticoste roid injection into the right knee in 10/2018 without much improvemen t. Will be traveling to [place] (March - May 2019). Would like to try another injection in 02/2019. Will consider a referral to Ortho. Patient is considerin g a handicap placard due to increased knee pain when walking beyond 200 feet. [id number] Lalo Graham MD , [facility], [address] [place] [address] 02/22/2019 12:02:11 02/22/2019 12:43:32 Osteoarthritis of knee 111238968 M17.9 Patient with underlying knee DJD presents with increased anterior and medial knee pain. No acute injury. No ligamentou s instabilit y. Corticoste roid injection administer ed into the bilateral medial knee today using a sterile technique. Patient tolerated the procedure well. Advised to monitor for any swelling, pain, increased redness, fever or chills. Encouraged NSAIDs prn. Recommende d to start Physical Therapy. Also discussed home quad strengthen ing exercises. [id number] Lalo Graham MD , [facility], [address] [place] [address] 07/15/2019 07:56:12 07/16/2019 10:48:34 Adult health examination 445250546 Z00.00 See Risk Assessment and Lifestyle Change Counseling section above. Colonoscop y in 09/2015 showed two adenomatou s polyps. Recommends 5 year surveillan ce. No COVID-19 related symptoms. Returned from [place] (after spending time in March - May 2019). Counseling 170859309 Z71 .9 including cardiovasc ular risk reduction counseling Depression screening 171 480219 Z13.89 depression screening tool administer ed, entered into emr, scored and discussed, time greater than 7.5 minutes Screening for alcohol abuse 616090926 Z13.39 Mixed hyperlipidemia 267 905715 E78.2 Continue Simvastati n. States has enough medication s. Continue with low fat/choles terol diet. Discussed about decreasing ice cream consumptio n and continuing Fish Oil 1000-1200m g bid given elevated TG and low HDL. Active or passive immunization 052591421 Z23 Gastroesop hageal reflux disease 497176013 K21.9 Stable. Not on any medication s. No BRBPR or melena. Adenomatou s polyp of colon 733803323 D12.6 Previously had colonoscop y in 09/2015 with adenomatou s polyp. Repeat surveillan ce in 5 years (due in 2020). Osteoarthr itis of knee 957303827 M17.9 Bilateral, but right side worse. Continues to ride bicycle. No limitation with biking, but difficulty with walking downhill when hiking. Will consider a referral to Ortho. Patient is considerin g a handicap placard due to increased knee pain when walking beyond 200 feet. Improved after the corticoste roid injection. Pain in right foot 33178 84362 60949 M79.671 Patient with 1 month duration of right foot pain in the metatarsal area. No calf pain. [id number] Lalo Graham MD , [facility], [address] [place] [address] 08/12/2019 14:56:00 08/14/2019 15:30:00 Mixed hyperlipidemia 744370013 E78.2 Continue Simvastati n. States has enough medication s. Continue with low fat/choles terol diet. Discussed about decreasing ice cream consumptio n and continuing Fish Oil 1000-1200m g bid given elevated TG and low HDL. Gastroesop hageal reflux disease 286225737 K21.9 Stable. Not on any medication s. No BRBPR or melena. Adenomatou s polyp of colon 620737715 D12.6 Previously had colonoscop y in 09/2015 with adenomatou s polyp. Repeat surveillan ce in 5 years (due in 2020). Osteoarthr itis of knee 382023442 M17.9 Bilateral, but right side worse. Continues to ride bicycle. No limitation with biking, but difficulty with walking downhill when hiking. Will consider a referral to Ortho. Patient is estefaniin g a handicap placard due to increased knee pain when walking beyond 200 feet. Improved after the corticoste roid injection. Pain in right foot 61199 12408 52064 M79.671 Patient with now 2 months duration of right foot pain in the metatarsal area. No calf pain. X-ray negative. Pain with weight bearing in the 2nd/3rd right toes and MTP area. Recommends NSAIDs. Will consider Podiatry if no improvemen t. Bee sting 579284575 T63. 91XA Recent bee sting to his right middle finger. Developed edema for 3-4 days which spontaneou sly resolved. No anaphylaxi s. No lip/tongue swelling. No breathing difficulty . Will need Td booster next year. Recommende d oral antihistam ine if another episode. [id number] Chris Hassan DPM Podiatry, [address] [address] 10/14/2019 08:31:13 10/25/2019 07:07:28 Metatarsalgia of right foot 2201335673 40095 M77.41 [id number] Kalpana Freeman MD , [facility], [address] [place] [address] 12/25/2019 08:09:32 12/26/2019 08:38:13 Active or passive immunization 602480808 Z23 [id number] Lalo Graham MD , [facility], [address] [place] [address] 02/03/2020 11:59:41 02/05/2020 14:09:24 Tick bite 08308544 W57.XXXA Discussed current knowledge of tick-relat ed illness. Having possible symptoms of systemic illness, we will treat with doxycyclin e 200 mg x 14 dDiscussed R/B of treating vs NOT treating and missing window of opportunit y to treat Lyme.Will get labs today before starting ABX Patient instructed to monitor for any new rash, fevers, headaches, or body aches for the next 6 weeks. Contact [facility] with any concerns. Discussed sensitivit y to sun with doxycyclin e. [id number] Lalo Graham MD , [facility], [address] [place] [address] 02/26/2020 09:57:05 02/27/2020 10:20:59 Hyperglycemia 36083291 R73.9 recent increase in sugar foods/ ice crm last yr A1C was < 6 Has changed eating habits/ rpt labs/ consider nutrition consult , fu 6 wks Pain of le ft shoulder joint 0488534287 9979550 M25.512 acute bilateral shoulder pain with minimal use No injury or fall Hx OA of knees Sxs seem c/w OA BUt very limited ROM and ADLs in past few days will get XR and SM consult Pain of ri ght shoulder joint 1654570919 5936216 M25.901 [id number] Lorenzo Alvarez MD Sports Medicine, [facility] [address] [place] [address] 03/05/2020 11:42:23 03/09/2020 12:18:20 Pain of shoulder region 71656891 M25.511 M25.512 Nick is a 69-year-ol d male with bilateral shoulder pain of somewhat uncertain etiology. We discussed the possibilit y of impingemen t syndrome and rotator cuff tendinosis causing his symptoms. I am however concerned regarding a possible more systemic cause of his discomfort with his recent right lower leg pain as well as current hand swelling and stiffness. We discussed his symptoms may be related to his statin medication versus a possible autoimmune etiology. At this point I have asked that he have blood testing performed for autoimmune causes of his symptoms. He was recently prescribed meloxicam which he will plan to use for pain and he will follow up with me in 4 weeks for reevaluati on or sooner if he is having worsening symptoms. [id number] Lorenzo Alvarez MD Sports Medicine, [address] [address] 04/06/2020 12:37:37 04/14/2020 11:52:35 Pain of shoulder region 12056036 M25.511 M25.512 Nick is a 69-year-ol d male with bilateral shoulder pain that I believe is due to polymyalgi a rheumatica . His recent ESR and CRP were elevated and other testing for inflammato ry causes of his symptoms was relatively normal. He has been on 5 days of prednisone and has started to see improvemen t in his symptoms. I reviewed the diagnosis of polymyalgi a rheumatica with him today as well as discussing treatment with long-term prednisone . I did advise that this is best managed by his primary care doctor or rheumatfredo coyle. He does have a prescripti on for 10 days of 15 mg in his own daily. At this point he will plan to contact his primary care doctor to arrange for follow-up and further management of his PMR. I did advise that if he is unable to obtain a follow-up visit in the next several days to contact me for additional bridging prednisone until he can see his primary care provider. I am of course happy to see Nick back as needed for further care of the future. [id number] Lalo Graham MD , [facility], [address] [place] [address] 04/13/2020 09:43:25 04/14/2020 10:02:11 Polymyalgia rheumatica 88267278 M35.3 Patient with bilateral shoulder/B UE pain/weakn ess and body ache started 01/2020. Met with [facility], then referred to Sports Medicine. Diagnosed with PMR and started on Prednisone 15mg daily dose. Now with marked improvemen t/almost full resolution of his symptoms after 10 days of Prednisone use. At the onset of his symptoms, he was presumptiv mahi treated for Lyme disease. X-rays of the bilateral shoulders demonstrat ing mild right AC joint OA. Otherwise normal. Found to have elevated CRP/ESR. Denies any gastritis symptoms. No abdominal pain. Advised to continue at Prednisone 15mg daily for 3 more weeks, then decrease by 2.5mg every 2 weeks. Once he is down to 10mg daily dose, will titrate down by 1mg as tolerated. Understand the plan. Will schedule for a follow up in 1 month. Type 2 jason betes mellitus without complication 628669507 E11.9 Recent diagnosis with Hgb A1c 6.5 (03/2020) prior to starting Prednisone . Following low sugar/carb ohydrate diet. Lifestyle modficatio n reviewed. Anticipate Hgb A1c to be higher with now Prednisone use. Will attempt to titrate down as tolerated. Will repeat Hgb A1c in 3 months. [id number] Lalo Graham MD , [facility], [address] [place] [address] 05/11/2020 10:44:46 08/05/2020 16:35:11 Polymyalgia rheumatica 73329167 M35.3 Patient with bilateral shoulder/B UE pain/weakn ess and body ache started 01/2020. Met with [facility], then referred to Sports Medicine. Diagnosed with PMR and started on Prednisone 15mg daily dose. Now with marked improvemen t/almost full resolution of his symptoms after 10 days of Prednisone use. At the onset of his symptoms, he was presumptiv mahi treated for Lyme disease. X-rays of the bilateral shoulders demonstrat ing mild right AC joint OA. Otherwise normal. Found to have elevated CRP/ESR. Denies any gastritis symptoms. No abdominal pain. Currently at Prednisone 12.5mg daily. Advised to decrease by 2.5mg every 2 weeks. Once he is down to 10mg daily dose, will titrate down by 1mg as tolerated. Understand the plan. Has an upcoming in[place]person [place]. Type 2 jason betes mellitus without complication 564847791 E11.9 Recent diagnosis with Hgb A1c 6.5 (03/2020) prior to starting Prednisone . Following low sugar/carb ohydrate diet. Lifestyle modficatio n reviewed. Anticipate Hgb A1c to be higher with now Prednisone use. Will attempt to titrate down as tolerated. Will repeat Hgb A1c in 2 months. [id number] Lalo Graham MD , [facility], [address] [place] [address] 07/24/2020 13:50:21 07/24/2020 14:52:02 Mixed hyperlipidemia 584731451 E78.2 Cholestero l is at goal at LDL 81 & HDL 46 (07/2020). Continue with Simvastati n 40mg daily. Continue to work on diet and exercise as discussed. Adult heal th examination 320161384 Z00.00 See Risk Assessment and Lifestyle Change Counseling section above. Colonoscop y in 09/2015 showed two adenomatou s polyps. Recommends 5 year surveillan ce. Received two doses COVID-19. Td administer ed today. Routine eye care reviewed. Counseling 772321369 Z71 .9 including cardiovasc ular risk reduction counseling Depression screening 171 854629 Z13.31 depression screening tool administer ed, entered into emr, scored and discussed, time greater than 7.5 minutes Screening for alcohol abuse 086045563 Z13.39 Adenomatou s polyp of colon 445288427 D12.6 Previously had colonoscop y in 09/2015 with adenomatou s polyp. Repeat surveillan ce in 5 years (due in 2020). Osteoarthr itis of knee 692752113 M17.9 Bilateral, but right side worse. Continues to ride bicycle. No limitation with biking, but difficulty with walking downhill when hiking. Will consider a referral to Ortho. Patient is considerin g a handicap placard due to increased knee pain when walking beyond 200 feet. Improved after the corticoste roid injection. Active or passive immunization 283546717 Z23 Polymyalgi a rheumatica 93818362 M35.3 Patient with bilateral shoulder/B UE pain/weakn ess and body ache started 01/2020. Met with [facility], then referred to Sports Medicine. Diagnosed with PMR and started on Prednisone 15mg daily dose. Now with marked improvemen t/almost full resolution of his symptoms after starting Prednisone . At the onset of his symptoms, he was presumptiv mahi treated for Lyme disease. X-rays of the bilateral shoulders demonstrat ing mild right AC joint OA. Otherwise normal. Found to have elevated CRP/ESR. Denies any gastritis symptoms. No abdominal pain. Gradual titration down. Will start 5mg this Monday (with 1mg decrease every 2 weeks). Type 2 jason betes mellitus without complication 454534559 E11.9 Recent diagnosis with Hgb A1c 6.5 (03/2020) prior to starting Prednisone . Now at 6.4 (07/2020). Following low sugar/carb ohydrate diet. Lifestyle modficatio n reviewed. Anticipate Hgb A1c to be higher with now Prednisone use. [id number] Lalo Graham MD , [facility], [address] [place] [address] 10/23/2020 08:27:42 10/23/2020 08:57:21 Polymyalgia rheumatica 40016324 M35.3 Patient with bilateral shoulder/B UE pain/weakn ess and body ache started 01/2020. Met with [facility], then referred to Sports Medicine. Diagnosed with PMR and started on Prednisone 15mg daily dose. Initially with marked improvemen t/almost full resolution of his symptoms after starting Prednisone . At the onset of his symptoms, he was presumptiv mahi treated for Lyme disease. X-rays of the bilateral shoulders demonstrat ing mild right AC joint OA. Otherwise normal. Found to have elevated CRP/ESR. Denies any gastritis symptoms. No abdominal pain. Recurring right hand/wrist pain since coming off Prednisone 2 weeks ago. Will recheck labs (also uric acid given right foot pain) and restart Prednisone at 15mg dose for 2-4 weeks, then titrate down to 12.5mg daily as tolerated. Will make a referral to No[facility] coyle. [id number] Lalo Graham MD , [facility] [address] [place] [address] 11/06/2020 11:34:59 11/06/2020 17:01:37 Active or passive immunization 482535718 Z23 [id number] Demi Sanches MD Rheumatol [address] [address] 12/24/2020 11:38:52 12/24/2020 12:21:41 Polymyalgia rheumatica 02988733 M35.3 Patient relapsed after going off prednisone .He is currently on 9 mg of prednisone .We will taper slower.9 mg for total of 4 weeks then 8 mg for 4 weeks then 7 mg for 4 weeks, then 6 mg then reassess.C heck labs now and before next visit.Twila ent will call when he needs a refill. Long-term current use of systemic steroid [id number] 91741 Z79.52 Patient to follow with pcp on blood pressure, blood sugar, lipids.Marleni ly calcium and vitamin D.Check bone density. [id number] Kalpana Freeman MD , [facility] [address] [place] [address] 12/25/2020 09:03:28 12/28/2020 21:42:37 Active or passive immunization 277456425 Z23 [id number] Demi Sanches MD Rheumatol [address] [address] 04/01/2021 10:05:44 04/01/2021 15:15:33 Polymyalgia rheumatica [id number] M35.3 Patient relapsed after going off prednisone .He is currently on 6 mg of prednisone .We will continue to taper slowly.Con tinue 6 mg for total of 4 weeks then 5 mg for 4 weeks then 4 mg for 4 weeks, then reassess.C heck labs before next visit. Patient got the COVID booster, the flu shot and PCV 13, as well as zoster vaccine. Long-term current use of systemic steroid [id number] 31988 Z79.52 Patient to follow with pcp on blood pressure, blood sugar, lipids.Marleni ly calcium and vitamin D.Fosamax as below. Osteopenia 592039607 M85 .80 Bone density results reviewed in details with the patient.Felipe cueto has osteopenia with high FRAX scores.Con tinue calcium and vitamin D.Add Fosamax. Patient was having teeth work and implant in [place], this was discussed and he will postpone the work for now. Side effects of Fosamax discussed with the patient, including but not limited to: allergic reaction, gastrointe stinal involvemen t (esophagit is, esophageal ulcers, esophageal erosion, heartburn, abdominal pain), musculoske letal pain, osteonecro sis of the jaw, atypical femur fractures. Patient instructed to take the medication first thing in the morning, on an empty stomach, with a full glass of water, and stay up at least 45 minutes after taking the medication . Patient verbalizes understand ing. Thyroid fu nction tests abnormal 795460306 R94.6 Recheck labs. [id number] Demi Sanches MD [facility], [address] [address] 07/01/2021 11:01:23 07/01/2021 11:30:30 Polymyalgia rheumatica 73133449 M35.3 Patient relapsed after going off prednisone .He is currently on 3 mg of prednisone .We will continue to taper slowly.Angel e prednisone 3 mg Monday through Monday, and 2 mg on , for a total of 4 weeksthen take prednisone 3 mg Monday through , and 2 mg on , for a total of 4 weeksthen Take prednisone 3 mg Monday through Monday, and 2 mg on -Mon, for a total of 3 weeks then decrease to prednisone 2 mg daily. Check labs before next visit. Patient got the COVID booster, the flu shot and PCV 13, as well as zoster vaccine. Long-term current use of systemic steroid [id number] 77678 Z79.52 Patient to follow with pcp on blood pressure, blood sugar, lipids.Marleni ly calcium and vitamin D.Fosamax as below. Osteopenia 204578882 M85 .80 Patient has osteopenia with high FRAX scores.Con tinue calcium and vitamin D.Continue Fosamax. Patient was having teeth work and implant in [place], this was discussed and he will postpone the work for now. Thyroid fu nction tests abnormal 436382543 R94.6 Repeat normal. [id number] Kalpana Freeman MD , [facility], [address] [place] [address] 10/20/2021 15:55:42 10/20/2021 17:12:45 Alcohol dependence 70064477 F10.20 discussed risks of alcohol and suggested time to significan tly decrease alcohol intake Type 2 jason betes mellitus without complication 091469194 E11.9 Diabetes.c ontinue to work on weight loss hemoglobin a1c in prediabete s range Osteoporosis 18217239 M8 1.0 Osteoporos is. on ledronated due to prednisone Osteoarthr itis of knee 096094886 M17.9 Arthritis in both knees.Temp orizing thing is to inject needles and cortisone. Get knee replacemen t done.Discu ssed about exercises helpful for knee joint.Take Tylenol and use diclofenac gel . Start doing resistance knee exercises. If you get the muscles stronger and decide to do surgery then you will do much better.Ins tructed muscle strengthen ing exercises and physical therapy and frequent exercise will lubricant knee and it pains less. Hiking sticks are good for doing down. Seborrheic keratosis 394 480271 L82.1 Seborrheic keratosis. 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 Adult heal th examination 942528589 Z00.00 Counseling 680735869 Z71 .9 including cardiovasc ular risk reduction counseling Depression screening 171 940645 Z13.31 depression screening tool administer ed, entered into emr, scored and discussed, time greater than 7.5 minutes Screening for alcohol abuse 631644221 Z13.39 [id number] Demi Sanches MD [facility], [facility] [address] [place] [address] 10/07/2021 11:05:44 10/07/2021 13:09:08 Polymyalgia rheumatica 69183967 M35.3 Patient relapsed after going off prednisone .He is currently on 3 mg of prednisone for 2 days and 2 mg for 5 days for about 2 weeks.We will continue to taper slowly, same as previously .Take prednisone 3 mg for 2 days and 2 mg for 5 days for a total of 4 weeks, then prednisone 3mg for 1 day and prednisone 2 mg for 6 days for 4 weeks then prednisone 2 mg for 4 weeks, then alternatin g doses of 2/1.5mg for 4 weeks then reassess. Check labs before next visit. Patient got the COVID series, PCV 13, as well as zoster vaccine.Felipe cueto to get flu shot in the fall. RTC in 4 months. Long-term current use of systemic steroid [id number] 88281 Z79.52 Patient to follow with pcp on blood pressure, blood sugar, lipids.Marleni ly calcium and vitamin D.Fosamax as below. Osteopenia 338828013 M85 .80 Patient has osteopenia with high FRAX scores.Con tinue calcium and vitamin D.Continue Fosamax. Patient was having teeth work and implant in [place], this was previously discussed and he will postpone the work for now. [id number] Allison Swan MD , [facility], [address] [place] [address] 02/23/2022 09:16:39 02/23/2022 11:06:52 Screening for malignant neoplasm of colon 308414087 Z12.11 Referral for a DIRECT booked colonoscop y. This patient is a healthy ASA Class 1 or 2 patient (only mild systemic disease), or a STABLE, well controlled insulin dependent diabetic. They do not have serious cardiac disease ie OR/angiopl asty within 1 year, symptomati c CHF; renal failure with CKD 4 or 5; take Coumadin, Plavix, Aggrenox, etc. COVID-19 140124084 U07.1 Covid 19 Isolation Guidelines Day 0 is your first day of symptoms or a positive viral test. Day 1 is the first full day after your symptoms developed or your test specimen was collected. If you have COVID-19 or have symptoms, isolate for at least 5 days. Stay home for at least 5 daysDo not travel.End isolation after 5 full days if you are fever-free for 24 hours (without the use of fever-redu cing medication ) and your symptoms are improving. Take precaution s until day 10Avoid being around people who are more likely to get very sick from COVID-19. A discussion regarding the use of Paxlovid treatment in the setting of COVID-19 infection was had with the patient.Th e patient qualifies for Paxlovid treatment. They are 12 years old or older and weight at least 40kg (88lbs). They have a positive COVID test (either PCR or antigen). Symptom onset was within 5 days. They do not have severe renal impairment (GFR >30).This medication is authorized by the FDA for emergency use only. Data from clinical trials have shown that these treatments reduce the risk of ER visits, hospitaliz ation, and in patients with mild to moderate symptoms, and those at high risk of complicati ons. Side effects were discussed: 1. Allergic reactions are possible, notify the nurse with any concerning symptoms2. Liver problems ? notify your provider if you experience loss of appetite, yellowing of the skin or eyes, dark colored urine, or pale colored stools.3. Altered sense of taste4. Nausea5. High blood pressure6. Muscle aches Your provider has reviewed interactio ns with all of your medication s and the following need to be stopped or the dose reduced: STOP your STATIN for 5 days while taking this medication How do I take PAXLOVID?P AXLOVID consists of 2 medicines: nirmatrelv ir and ritonavir. - Take 2 pink tablets of nirmatrelv ir with 1 white tablet of ritonavir by mouth 2 times each day (in the morning and in the evening) for 5 days. For each dose, take all 3 tablets at the same time.- If you have kidney disease, talk to your healthcare provider. You may need a different dose.- Swallow the tablets whole. Do not chew, break, or crush the tablets.- Take PAXLOVID with or without food.- Do not stop taking PAXLOVID without talking to your healthcare provider, even if you feel better.- If you miss a dose of PAXLOVID within 8 hours of the time it is usually taken, take it as soon as you remember. If you miss a dose by more than 8 hours, skip the missed dose and take the next dose at your regular time. Do not take 2 doses of PAXLOVID at the same time. Elevated blood-pressure reading without diagnosis of hypertension 426247440 R03.0 Discussed BP goals. Pt is not at goal.Your BP Goal is < 130/80Revi ewed sodium, cardiovasc ular exercise, maintainin g appropriat e weight.Mon itor Bp at home. Polymyalgi a rheumatica 76765874 M35.3 now seeing Rheum in [place] Eladia torres better, tapering and on pred 1 mg [id number] Kalpana Freeman MD , [facility], [address] [place] [address] 05/30/2022 09:00:09 05/30/2022 09:47:41 Mixed hyperlipidemia 857084086 E78.2 Cholestero l is at goal Continue to work on diet and exercise as discussed Continue with current medical management .Encourage d to check his lipid panel every 6 months. Type 2 jason betes mellitus 37439638 E11.9 His hemoglobin A1c is 6.2 percent. Encouraged to check his fasting blood sugar every 6 months. Alcohol dependence 43171 003 F10.20 discussed risks of alcohol and suggested time to significan tly decrease alcohol intake Syncope 098101861 R55 Explained in detail regarding the etiology of vasovagal episode, and treatment options were discussed. Encouraged to get a Holter monitor. This note has been generated by Sergio LOCKETT and edited by Jessica Miller, Quality Documentat ion Specialist . Screening for disorder 567967055 Z13.30 We have used the 5 As (assess, advise, agree, assist, arrange) to evaluate your daily alcohol use and create strategies to improve your health. We discussed your alcohol use and the health risks associated with drinking. We explored ways to reduce or stop alcohol consumptio n to improve your overall health. We discussed resources available to support your goal to cut back or stop, including primary care behavioral health, AA, and medication s. Your personal goal: [id number] Kalpana Freeman MD , [facility], [address] [place] [address] 05/31/2022 11:03:57 05/31/2022 15:46:32 Syncope 107343743 R55 [id number] Kalpana Freeman MD , [facility], [address] [place] [address] 10/24/2022 09:05:19 10/24/2022 10:17:04 Adult health examination 863641984 Z00.00 Depression screening 171 646344 Z13.31 depression screening tool administer ed Screening for alcohol abuse 469054772 Z13.39 Alcohol use screening tool administer ed Screening for malignant neoplasm of prostate 792285340 Z12.5 PSA testing for ages 55-69 risks and benefits discussed {{patient declines testing te st ordered}}. Osteoarthr itis of knee 086620063 M17.9 Arthritis in both knees.Temp orizing thing is to inject needles and cortisone. Get knee replacemen t done.Discu ssed about exercises helpful for knee joint.Take Tylenol and use diclofenac gel . Start doing resistance knee exercises. If you get the muscles stronger and decide to do surgery then you will do much better.Ins tructed muscle strengthen ing exercises and physical therapy and frequent exercise will lubricant knee and it pains less. Hiking sticks are good for doing down. Bilateral knee arthritisE xplained in detail regarding the etiology of knee pain and arthritis along with its associated risks and discussed treatment options including knee replacemen t.Encourag ed on muscle strengthen ing exercises. Discussed about receiving cortisone injections and Synvisc injection. Encouraged to take Tylenol on a regular basis.Enco uraged on using hiking sticks.Ref erral to physical therapy was provided for further evaluation and treatment. Discussed about following up with orthopedic s if he were to have worsening symptoms. This note has been generated by Sergio LOCKETT and edited by George Sánchez, Quality Documentat ion Specialist . Counseled by member of primary health care team 429905809 Z71.9 Today we discussed ways to reduce your 10-year cardiovasc ular disease risk. Things that decrease risk for cardiovasc ular events include eating a diet high in fiber (fruits and vegetables ) and low in simple carbohydra jan (bread, rice, pasta, alcohol, potatoes), decreasing processed foods, limiting juice and alcohol, limiting saturated fats (butter, ice cream, and cheeses), and adding regular daily activity. Having blood pressure that is <130/80. Having well controlled cholestero l (LDL and triglyceri kamila) by eating a healthy diet and taking medication s when necessary. Managing daily stress with meditation or yoga. Depending on your other cardiovasc ular risks your practition er may recommend taking daily aspirin. Type 2 jason betes mellitus without complication 418606305 E11.9 Diabetes.c ontinue to work on weight loss hemoglobin a1c in prediabete s range Hyperlipidemia 99692402 E78.5 at [facility] Rheumatoid arthritis 698 91774 M06.9 continued thumb pain past hx of pmr on hydroxyxhl oroquin by rheum and getting regular eye f/u [id number] Kalpana Freeman MD FP, [facility], [address] [place] [address] 12/02/2022 07:13:41 12/02/2022 17:10:57 Active or passive immunization 345706508 Z23 [id number] Chris Bell , PT Physical Therapy, [facility] [address] [place] [address] 12/27/2022 10:54:13 12/29/2022 09:35:38 Pain of right knee region 5297379200 21758 M25.561 72 year old {{female m nerissa*}} with findings most consistent with {{acute ch ronic* rec urrent}} Knee pain with mobility deficit and movement coordinati on impairment Patient has significan t functional limitation in their {{activiti es of daily living act ivities of daily living and work capacity a ctivities of daily living and exercise capacity* activities of daily living and recreation }}. Skilled physical therapy is needed to safely and progressiv mahi address impairment s and functional limitation s as outlined below.Twila ent Goals:To be able to Hike and walk for longer distances without limitation s due to knee pain, be able to come down stairs and ramps without limitation s due to knee pain. Clinical Goals:1. Demonstrat e symmetric pain free active, passive and resisted motions of the {{neck and upper extremitie s shoulder elbow, forearm and wrist trun k and lower extremitie s hip knee ankle kne e and hip#}}. 2. Demonstrat e sufficient muscular endurance to meet functional demands. Treatment Plan: Patient to return for {{4 6 8* 1 0}} visits over {{ 8 12*} } weeks. We expect significan t change in pain, impairment and function in this time frame.Yanelis tment to Include as appropriat e: therapeuti c exercise (85544), manual therapy (20596), therapeuti c activity (05938), gait training (60657), neuromuscu lar reeducatio n (11819), mechanical traction (30900) [id number] Chris Bell , PT Physical Therapy, [address] [address] 01/17/2023 15:30:07 01/20/2023 16:44:28 Pain of right knee region 7251120902 82348 M25.561 72 year old {{female m nerissa*}} with findings most consistent with {{acute ch ronic* rec urrent}} Knee pain with mobility deficit and movement coordinati on impairment Patient has significan t functional limitation in their {{activiti es of daily living act ivities of daily living and work capacity a ctivities of daily living and exercise capacity* activities of daily living and recreation }}. Skilled physical therapy is needed to safely and progressiv mahi address impairment s and functional limitation s as outlined below.Twila ent Goals:To be able to Hike and walk for longer distances without limitation s due to knee pain, be able to come down stairs and ramps without limitation s due to knee pain. Clinical Goals:1. Demonstrat e symmetric pain free active, passive and resisted motions of the {{neck and upper extremitie s shoulder elbow, forearm and wrist trun k and lower extremitie s hip knee ankle kne e and hip#}}. 2. Demonstrat e sufficient muscular endurance to meet functional demands. Treatment Plan: Patient to return for {{4 6 8* 1 0}} visits over {{4 8 12*} } weeks. We expect significan t change in pain, impairment and function in this time frame.Yanelis macedo to Include as appropriat e: therapeuti c exercise (60223), manual therapy (33844), therapeuti c activity (93940), gait training (04683), neuromuscu lar reeducatio n (46153), mechanical traction (54263) [id number] Chris Bell , PT Physical Therapy, [address] [address] 02/07/2023 08:58:16 02/07/2023 13:25:38 Pain of right knee region [id number] 30854 M25.561 Patient Goals:To be able to Hike and walk for longer distances without limitation s due to knee pain, be able to come down stairs and ramps without limitation s due to knee pain.(07/2022) these goals have not been met. Clinical Goals:1. Demonstrat e symmetric pain free active, passive and resisted motions of the {{neck and upper extremitie s shoulder elbow, forearm and wrist trun k and lower extremitie s hip knee ankle kne e and hip#}}. 2. Demonstrat e sufficient muscular endurance to meet functional demands.(1 04/10/2022) these goals have not been met. [id number] Kalpana Freeman MD , [facility], [address] [place] [address] 11/08/2023 08:46:41 11/08/2023 09:36:30 Adult health examination 968660979 Z00.00 Depression screening 171 460266 Z13.31 depression screening tool administer ed Screening for alcohol abuse 237035502 Z13.39 Alcohol use screening tool administer ed Type 2 jason betes mellitus without complication 374444809 E11.9 Diabetes.c ontinue to work on weight loss hemoglobin a1c in prediabete s range Pure hypercholesterolemia 550302232 E78.00 Hyperlipidemia 43892094 E78.5 at [facility] weight loss 188803856 R63.4 Counseled by member of primary health care team 009260608 Z71.9 Today we discussed ways to reduce your 10-year cardiovasc ular disease risk. Things that decrease risk for cardiovasc ular events include eating a diet high in fiber (fruits and vegetables ) and low in simple carbohydra jan (bread, rice, pasta, alcohol, potatoes), decreasing processed foods, limiting juice and alcohol, limiting saturated fats (butter, ice cream, and cheeses), and adding regular daily activity. Having blood pressure that is <130/80. Having well controlled cholestero l (LDL and triglyceri kamila) by eating a healthy diet and taking medication s when necessary. Managing daily stress with meditation or yoga. Depending on your other cardiovasc ular risks your practition er may recommend taking daily aspirin. [id number] Kalpana Freeman MD , [facility], [address] [place] [address] 05/15/2024 07:58:28 05/20/2024 10:33:20 Type 2 diabetes mellitus 25999591 E11.9 His hemoglobin A1c is 5.6percent . Encouraged to check his fasting blood sugar every 6 months. Rheumatoid arthritis 698 48051 M06.9 continued thumb pain past hx of pmr on hydroxyxhl oroquin by rheum and getting regular eye f/u Gastroesop hageal reflux disease 079630888 K21.9 Hyperlipidemia 90030298 E78.5 at [facility] Health Concerns Section Related Observation LastModified by Organization Detai ls LastModified Time None Recorded Concern Status LastModified by Organization Details LastModified Time None Recorded Advance Directives Directive N: FORM GIVEN 07/13/09-regive n Payers Encounter Date Sequence Insurance Name Policy Number Policy Freitas Covered Member ID Freitas Member ID Guarantor Name 12/27/2022 2 [place] [id number] Nick Todd [id number] Nick Todd 12/27/2022 1 [place] [employer] [place] Nick Todd [id number] Nick Todd 01/17/2023 2 [place] [id number] Nick Todd [id number] Nick Todd 01/17/2023 1 [place] [place] Nick Todd [id number] Nick Todd 02/07/2023 2 [place] [id number] Nick Todd [id number] Nick Todd 02/07/2023 1 MEDICARE B-[place]: [facility] Nick Todd [id number] Nick Todd 11/08/2023 2 [place] [id number] Nick Todd [id number] Nick Todd 11/08/2023 1 [place] B[place]: [facility] Nick Todd [id number] Nick Todd 05/15/2024 2 [place] [id number] Nick Todd [id number] Nick Todd 05/15/2024 1 [place]: [facility] Nick Todd [id number] Nick Todd Notes Date Note Type Note Provider Name and Address Organization Details Recorded Time 12/27/2022 text/html Intake ReviewedR eported bypatient.Patient intake form reviewedwith patient including functional limitations. Document is scanned into chartPT Initial Eval*Reported bypatient.History:Chief complaint: (Bilateral knee pain, Right greater than left); Patient has long-standing knee pain. In early 2020 he developed polymyalgia rheumatica. He had been on oral prednisone since March 2020. He discontinued oral prednisone in March of this year. Over the ensuing few months he has had return of hand stiffness which was his initial symptom of polymyalgia rheumatica. 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 As he has become more active he has begun to notice more limitations due to his long-standing knee pain. He comes to physical therapy as previously when doing therapy exercises he was feeling better. He hopes to be able to return to his prior level of activity without limitations due to knee pain. Symptom intensity:average 5/10 Symptom duration:occasionally Symptom change:symptoms are not changing Symptom quality:dull Sleep Status:no difficulty sleeping due to pain Prior History:no prior PT for other problems in the past year; no recent hospitalization; not currently taking a blood thinner; no allergy to latex; no falls in the past year Prior Studies:x ray (11/07/2017: Right knee: Small joint effusion. No acute fracture. Moderate medial and patellofemoral compartment joint space narrowing with marginal osteophytes. No bone destruction.Left knee: Moderate joint effusion. No acute fracture. There is moderate medial and patellofemoral compartment joint space narrowing with marginal osteophytes. No bone destruction.) Work:retired Activities/Hobbies/Exer cise:He goes to the fitness center 2-3 times a week continues to hike and bike with good weather. Associated Symptoms:no nausea; no vomiting; no fever; no chills; no excessive fatigue; no confusion; no forgetfulness; no dizziness; no lightheadedness; no change in weight; no numbness; no tingling; no changes in urinary habits; no changes in bowel habits; no loss of pleasure or interest in activities; no feeling down or depressed Patient Specific Functional Score: {{10 30 40 50 60 70 80 90 100*}} Percent limitation in Hiking or walking for more than 90 minutes {{10 30 40 50 60 70 80* 90 100}} Percent limitation in Walking down slopes or stairs Chris Bell, PT [address] [place], [address], [facility] 12/29/2022 09:01:23 01/17/2023 text/html PT Initial Eval*Reported bypatient.History:Chief complaint: (Bilateral knee pain, Right greater than left); Patient has long-standing knee pain. In early 2020 he developed polymyalgia rheumatica. He had been on oral prednisone since March 2020. He discontinued oral prednisone in March of this year. Over the ensuing few months he has had return of hand stiffness which was his initial symptom of polymyalgia rheumatica. 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 As he has become more active he has begun to notice more limitations due to his long-standing knee pain. He comes to physical therapy as previously when doing therapy exercises he was feeling better. He hopes to be able to return to his prior level of activity without limitations due to knee pain. Symptom intensity:average 5/10 Symptom duration:occasionally Symptom change:symptoms are not changing Symptom quality:dull Sleep Status:no difficulty sleeping due to pain Prior History:no prior PT for other problems in the past year; no recent hospitalization; not currently taking a blood thinner; no allergy to latex; no falls in the past year Prior Studies:x ray (11/07/2017: Right knee: Small joint effusion. No acute fracture. Moderate medial and patellofemoral compartment joint space narrowing with marginal osteophytes. No bone destruction.Left knee: Moderate joint effusion. No acute fracture. There is moderate medial and patellofemoral compartment joint space narrowing with marginal osteophytes. No bone destruction.) Work:retired Activities/Hobbies/Exer cise:He goes to the fitness center 2-3 times a week continues to hike and bike with good weather. Associated Symptoms:no nausea; no vomiting; no fever; no chills; no excessive fatigue; no confusion; no forgetfulness; no dizziness; no lightheadedness; no change in weight; no numbness; no tingling; no changes in urinary habits; no changes in bowel habits; no loss of pleasure or interest in activities; no feeling down or depressedDaily progress note*Reported bypatient.How are you feeling?same; I had two incidents of feeling my knees. One was bowling and the other was a [employer] defense class. Change in Symptoms:location: (bilateral knees) Patient Specific Functional Score: {{10 20 30 40 50 60 70 80 90 100*}} Percent limitation in Hiking or walking for more than 90 minutes {{10 20 30 40 50 60 70 80* 90 100}} Percent limitation in Walking down slopes or stairs Chris Bell, PT [address] [place], [phone], [facility] 01/20/2023 16:10:39 02/07/2023 text/html PT Initial Eval*Reported bypatient.History:Chief complaint: (Bilateral knee pain, Right greater than left); Patient has long-standing knee pain. In early 2020 he developed polymyalgia rheumatica. He had been on oral prednisone since March 2020. He discontinued oral prednisone in March of this year. Over the ensuing few months he has had return of hand stiffness which was his initial symptom of polymyalgia rheumatica. 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 As he has become more active he has begun to notice more limitations due to his long-standing knee pain. He comes to physical therapy as previously when doing therapy exercises he was feeling better. He hopes to be able to return to his prior level of activity without limitations due to knee pain. Symptom intensity:average 5/10 Symptom duration:occasionally Symptom change:symptoms are not changing Symptom quality:dull Sleep Status:no difficulty sleeping due to pain Prior History:no prior PT for other problems in the past year; no recent hospitalization; not currently taking a blood thinner; no allergy to latex; no falls in the past year Prior Studies:x ray (11/07/2017: Right knee: Small joint effusion. No acute fracture. Moderate medial and patellofemoral compartment joint space narrowing with marginal osteophytes. No bone destruction.Left knee: Moderate joint effusion. No acute fracture. There is moderate medial and patellofemoral compartment joint space narrowing with marginal osteophytes. No bone destruction.) Work:retired Activities/Hobbies/Exer cise:He goes to the fitness center 2-3 times a week continues to hike and bike with good weather. Associated Symptoms:no nausea; no vomiting; no fever; no chills; no excessive fatigue; no confusion; no forgetfulness; no dizziness; no lightheadedness; no change in weight; no numbness; no tingling; no changes in urinary habits; no changes in bowel habits; no loss of pleasure or interest in activities; no feeling down or depressedDaily progress note*Reported bypatient.How are you feeling?same; I am good for about a mile and a half. Sitting for awhile on long drives also bothers the knees. Change in Symptoms:location: (bilateral knees) Home program:Performing regularly; I did to the gym 3 times a week and do my exercises per PT 4 times a week. I feel like there is sufficient. Patient Specific Functional Score: {{10 20 30 40 50 60 70 80 90 100*}} Percent limitation in Hiking or walking for more than 90 minutes {{10 20 30 40 50 60 70 80* 90 100}} Percent limitation in Walking down slopes or stairs Chris Bell, PT [address] [facility], [place], [phone], [facility] 02/07/2023 09:45:41 11/08/2023 text/html Risk Assessment and Lifestyle Change Counseling (Medicare)Reported bypatient.Coronary Artery Disease Risk Assessment:No Family history of coronary artery disease; No history of peripheral vascular disease, AAA, or carotid disease; No personal history of coronary artery disease Breast Cancer Risk Assessment:No family history of breast cancer Colon Cancer Risk Assessment:Patient has risk for colon cancer; hx of sdenomatous polyps Lung Cancer Risk Assessment:Never smoked Fracture Risk Assessment:No unexplained fracture;Use of corticosteroids Cognitive/Behavioral Risk Assessment:No personal history of mental illness Functional Status:Patient does not have trouble hearing the television or radio when others do not.; Patient does not need help with preparing meals, transportation, shopping, taking medicine, managing finances, or other activities of daily living.; Patient was not unsteady and did not take longer than 30 seconds during the timed get up and go test. Diet:Discussed the value of a Mediterranean diet , and eating more fruits and vegetables Exercise counseling:Discussed the importance of daily physical activity Safety:Counseled about protecting skin from the sun and lowering the risk of skin cancer 11/08/2023 73 y/o M for Medicare Wellness Visit No proxy or [facility] in [facility] for foot exam Colonoscopy completed 12/30/2022 10/24/22 72 y/o M here for wellness visit.History of present illness:Nick Todd is a 72-year-old male, who presents today for wellness visit.He reports that he is doing well.He was last seen in 05/2022 and at that time, he had a syncopal episode and had undergone a Holter monitor test. We discussed about his cholesterol and blood glucose levels at that time.He states that he has not had a syncopal episode since his last visit.He has a history of well controlled type 2 diabetes mellitus.He has a history of hyperlipidemia and is on simvastatin.He has a history of polymyalgia rheumatica. He states that in 09/2022, he started experiencing stiffness in his fingers, which he attributed to weeding in the garden. He states that by the time Thanksgiving came around, he was unable to get off the couch. He states that after 2 years of prednisone, he was fine. He states that this summer, he started experiencing stiffness in his fingers, so he saw a demolition hammer operator, who diagnosed him with rheumatoid arthritis in his thumb and was started on hydroxychloroquine twice daily. He states that he was told that it will take about 3 months for the hydroxychloroquine to take effect, and he will follow up with his demolition hammer operator in 12/2022. He states that his thumb symptoms are better currently. He states that currently, his fingers are stiff. He reports to have some knee issues, but states that it is different from his thumb symptoms.He has a history of erectile dysfunction and is on Viagra as needed.He is up-to-date on COVID-19 and shingles vaccines. He states that when he went to product picker his hydroxychloroquine, the pharmacy told him that he is due for his pneumonia vaccine. He states that he had 2 pneumonia vaccines 5 years ago.He states that he is going to [place] for a few months in the winter.Blood test done last week revealed his HbA1c was 6.1. CRP level was normal ordered by demolition hammer operator. Microalbumin level in 05/2022 was normal. Cholesterol was normal with an LDL cholesterol of 89 in 05/2022. ESR and CRP was normal. Most recent BMP from 05/2022 revealed his blood glucose level was slightly elevated, kidney function test and potassium level were normal.He states that he is scheduled for a colonoscopy in 12/2022. He states that during his first colonoscopy, he had 2 polyps and on his last colonoscopy in 2020, he had 3 to 5 polyps which showed adenomatous polyp and a hyperplastic polyp that were biopsied and was advised to have colonoscopies more frequently.He states that he has been stung 3 times this summer and developed big red reactions to it, which he has never had in the past.He reports to have bilateral knee issues and states that his right knee symptoms are worse. He states that he goes to the fitness center at the [facility] and has noticed that right knee tends to wobble while exercising. He states that about a week ago, when he was walking up the steps, his right knee was wobbling. He states that he can walk about a mile before his right knee starts to bother him. He states that he carries a walking stick. He states that he has been going to the fitness center 3 times a week for 4 years, and he has not noticed any improvement. He states that he does quads for 45 minutes and does not use elliptical machines. He states that he can still ride a bike, but admits to have lack of mobility. He has not been using Tylenol. X-rays of the knee done back in 2018 revealed significant arthritis.His hearing and vision are normal. He states that he had an eye exam earlier in the spring and had another eye exam for the hydroxychloroquine to set the baseline.His breathing is normal. He denies chest pain.Blood pressure is reasonable today. His weight is reasonable.He denies smoking, but admits to have smoked pot in college. From 10/2021:previous In-person [place]. Following up on PMR. Marked improvement with Prednisone. Patient previously transferred care from Dr. Nash. Underlying erectile dysfunction and hypercholesterolemia. Fairly active. No exercise intolerance. No F/C/N/V. Denies urine obstructive symptoms. Plans to travel to [facility] (where his son lives) for dental care. Current Prednisone dose is 6mg daily. Will be titrating down 1mg every 2 weeks (scheduled to start 5mg dose this weekend). Currently on Simvastatin 40mg daily. Ongoing bilateral knee pain. No issues with normal ADL's, but limiting his ability to hike mountains. LDL 81, HDL 46 (07/2020). History of present illness:Nick Todd is a 71-year-old male, who presents today for wellness visit. The patient is doing good.The patient complains of polymyalgia rheumatica which he has had since the fall in 2019 and he is on prednisone 2 a day and he visits Dr. Lutz. He states he was first visiting Dr. Graham and he had the patient on a 6-month protocol starting at 15 to 4 mg and decreasing the dose and he feels prednisone is like a miracle drug. He states it took him a month to diagnose the issue. He could not move his hands and legs and was not able to lift his hands to wash his hair and could barely get his leg up to the shower. He took prednisone 15 mg and decreased it gradually to 4 mg. He had stiffness in 2 fingers and nothing was debilitating. He was hooked up with Dr. Lutz who said that it was not 6-monht old but it was there since a year. He saw her a week ago and will see her again in February. A bone density was done which showed that he was down to 80%. He states she put him on alendronate and he was also taking the calcium.He has salads for lunch everyday for the past 2-1/2 years. He eats low carb and sugar free.The patient feels he is due for colonoscopy. He states he had 2 or 3 polyps and last time they found 5. He has family history of colon polyps. His grandfather of cancer but he was 95. He states 3 out of his 4 grandparents lived into the mid 90s. His mom turned 91 and his dad at 87.He denies history of depression or anxietyHe denies smoking. The patient denies history of heart disease history of either blockages in arteries or an aneurysm and breast cancer. He states his doctor told him to wear glasses about 5 years ago. He does not have problem in reading street signs.The patient complains of rough spot of skin. In 2019 he was climbing up a steep hill suddenly all the toes got bent and it was very painful. He was wearing one of those black sandal for 6 months and he is able to feel the numbness between the toes.The patient's father had got his knee done. Blood sugar in 2020 was 6.5 and then it was 6.4 and 6.2.pt drinks 9-17 beers per week The patient presents for evaluation of multiple medical concerns.He expresses concern about his weight loss, fearing it might be a symptom of cancer. He has experienced weight loss, dropping from the 190s to the low 180s. This weight loss typically occurs during his annual two-month visit to his son in [place] in March and April, but he usually regains it upon return. However, this year, he has not regained the weight even though there have been no significant changes in diet or exercise. His weight now fluctuates between 181 and 183 pounds. He enjoys eating and has not altered his diet. He was previously overweight with a BMI of 30.His eye examination revealed no adverse effects from hydroxychloroquine. He is currently not on any medication for polymyalgia rheumatica but continues to take hydroxychloroquine. His demolition hammer operator advised him to discontinue calcium supplements, which he has done.He has been taking simvastatin for cholesterol management. He was diagnosed with diabetes three years ago, which led to a switch to a low-carb diet that significantly improved his condition.He underwent colon cancer screening last year and was informed that a follow-up would be needed in 7 years. Kalpana Freeman MD [address] [place] [address], [phone], [facility] 11/11/2023 08:34:10 05/15/2024 text/html The patient pres ents for a follow-up visit.He has a known diagnosis of rheumatoid arthritis and is under the care of a demolition hammer operator, with a scheduled appointment next week. His current medication regimen includes hydroxychloroquine, which he reports as effective.He also has type 2 diabetes and is on metformin. His blood glucose levels typically fall within the prediabetic range. He undergoes annual eye examinations due to his rheumatoid arthritis medication.He reports experiencing chest congestion upon awakening, which he attributes to a recent cold. He does not experience any chest pain during physical exertion or respiratory distress.He has been experiencing numbness in his toes, predominantly at night, which he suspects may be indicative of a circulatory issue. He recalls purchasing a new pack of socks approximately 4 to 5 months ago, which were notably tight. He discontinued their use about a month ago, resulting in a slight improvement in his symptoms.He has identified two areas of dry skin on his back and two similar areas on his hand. These areas are non-painful and non-lumpy. One area has been present for approximately a year, while the other has developed over the past 4 to 5 months.He reports an incident of ear bleeding, which he noticed upon waking one morning. He had used Q-tips for ear cleaning the previous day. He does not report any associated pain or changes in hearing.He has a painful corn on his toe.He has been vaccinated against COVID-19 and influenza in the fall. He received the RSV vaccine in 12/2022 and has completed the shingles vaccine series. He has also received the pneumonia vaccine in 2017 and 2020. He underwent a colonoscopy in 2022, during which 3 to 5 polyps were identified and removed. He maintains an active lifestyle, attending [place] 2 to 3 times per week, engaging in cycling during the summer, and walking daily.Supplemental InformationHe has experienced weight fluctuations, with a decrease to 177 pounds approximately 2 months ago, followed by an increase to 180 pounds. Kalpana Freeman MD [address] [place] [address], [phone], [facility] 05/17/2024 15:19:00
--- OUTSIDE RECORDS SUMMARY | 2024-07-19 08:59 | XMS_ITS | Continuity of Care Document ---
Author Organization [facility] Address [address] [place] [address] Phone Care Team Providers Care Interventional Radiology Technologist Name Role Phone Howard Rosario MD Unavailable [...] Providers Copied on Encounter [facility], [address] [place] [address], [id number], [place] tel:[phone] [facility] No Information 2 Marlene Lawrence. [address] [place] [address] [place], [address], [place]. [phone] [facility], [address] [place] [address], [id number], [place] tel:[phone] [facility] No Information 2 Marlene Lawrence. [address] [place], [place] [address] , [place], [address], [place]. [phone] OFFICE/OUTPA TIENT VISIT, EST [facility], [address] [place] [address], [id number], [place] tel:[phone] [facility] New Follow Up of Idiopathic gout, multiple sites (chief complaint) Idiopathic gout, multiple sitesOther intermediate frame tender (current) drug therapyBody mass index [BMI]30.0-30. 9, adult May- 2 Marlene Lawrence. [address] [place] [address], [address], [place]. [phone] Referring Provider: Howard Muhammad, [address] [place] [address], [address]. tel:[phone] OFFICE/OUTPA TIENT VISIT, EST [facility], [address] [place] [address], [id number], [place] tel:[phone] [facility] New Follow Up of Idiopathic gout, multiple sites (chief complaint) Idiopathic gout, multiple sitesOther intermediate frame tender (current) drug therapyBody mass index [BMI]30.0-30. 9, adult 1 Marlene Lawrence. [address] [place] [address], [address], [place]. [phone] Referring Provider: MARTI Murry [address], [place], [address]. tel:[phone] OFFICE/OUTPA TIENT VISIT, EST [facility], [address] [place] [address], [id number], [place] tel:[phone] [facility] New Follow Up of Idiopathic gout, multiple sites (chief complaint) Idiopathic gout, multiple sitesOther nursing home (current) drug therapyBody mass index (BMI) 31.0-31.9, adult 0 Marlene Lawrence. [address] [place] [address], [place], [address], [place]. tel:[phone] Referring Provider: MARTI Murry[address], [place], [address]. tel:[phone] OFFICE/OUTPA TIENT VISIT, EST [facility], [address] [place] [address], [id number], [place] tel:[phone] [facility] Follow Up of Idiopathic gout, multiple sites (chief complaint) Idiopathic gout, multiple sitesOther intermediate frame tender (current) drug therapyBody mass index (BMI) 31.0-31.9, adult Mar-0 3-202 0 Marlene Lawrence. [address] [place] [address], [address], [place]. tel:[phone] Referring Provider: Hadley Freeman, ENT [address], [place], [address]. tel:[phone] OFFICE/OUTPA TIENT VISIT, EST [facility], [address] [place] [address], [id number], [place] tel:[phone] [facility] Follow Up of Idiopathic gout, multiple sites (chief complaint) Idiopathic gout, multiple sitesOther nursing home (current) drug therapyBody mass index (BMI) 31.0-31.9, adult May-0 9-201 9 Marlene Lawrence. [address] [place] [address], [address], [place]. tel:[phone] Referring Provider: Howadr Muhammad, [address] [place] [address], [address]. tel:[phone] OFFICE/OUTPA TIENT VISIT, EST [facility], [address] [place] [address], [id number], [place] tel:[phone] [facility] Follow Up of Idiopathic chronic gout, unsp ankle and fo (chief complaint) Body mass index (BMI) 31.0-31.9, adultIdiopath ic gout, multiple sitesOther intermediate frame tender (current) drug therapy Nov-0 8-201 8 Marlene Lawrence. [address] [place] [address], [address], [place]. tel:[phone] Referring Provider: Howard Muhammad, [address] [place] [address], [address]. tel:[phone] OFFICE/OUTPA TIENT VISIT, EST [facility], [address] [place] [address], [id number], [place] tel:[phone] [facility] Idiopathic chronic gout, unsp ankle and foot, without t (chief complaint) Idiopathic chronic gout, unsp ankle and foot, without tophusOther nursing home (current) drug therapyBody mass index (BMI) 31.0-31.9, adult 7 Marlene Lawrence. [address] [place] [address], [address], [place]. tel:[phone] Referring Provider: [place] Freeman, ENT [address], [place], [address]. tel:[phone] OFFICE/OUTPA TIENT VISIT, EST [facility], [address] [place] [address], [id number], [place] tel:[phone] [facility] Follow Up of Idiopathic chronic gout (chief complaint) Idiopathic chronic gout, unsp ankle and foot, without tophusOther nursing home (current) drug therapy 6 Marlene Lawrence. [address] [place] [address], [address], [place]. tel:[phone] Referring Provider: Howard Muhammad, [address] [place] [address], [address]. tel:[phone] [facility], [address] [place] [address], [id number], [place] tel:[phone] [facility] No Information 6 Marlene Lawrence. [address] [place] [address], [address], [place]. tel:[phone] OFFICE/OUTPA TIENT VISIT, EST [facility], [address] [place] [address], [id number], [place] tel:[phone] [facility] Follow Up of Gouty arthropathy (chief complaint) Idiopathic chronic gout, unsp ankle and foot, without tophusOther intermediate frame tender (current) drug therapy 5 Marlene Lawrence. [address] [place] [address], [address], [place]. tel:[phone] [facility], [address] [place] [address], [id number], [place] tel:[phone] [facility] Idiopathic gout, multiple sitesOther intermediate frame tender (current) drug therapy 5 Marlene Lawrence. [address] [place] [address], [address], [place]. tel: [phone] OFFICE/OUTPA TIENT VISIT, EST [facility], [address] [place] [address], [id number], [place] tel:[phone] [facility] Follow Up of Gouty arthropathy (chief complaint) Gouty Arthropathy, UnspeciiedThe rapeutic Drug Monitoring 4 Marlene Lawrence. [address] [place] [address], [address], [place]. tel: [phone] OFFICE/OUTPA TIENT VISIT, EST [facility], [address] [place] [address], [id number], [place] tel:[phone] [facility] Gouty arthropathy (chief complaint) Gouty Arthropathy, UnspeciiedThe [facility]ut[facility] Drug Monitoring 3 Marlene Lawrence. [address] [place] [address], [address], [place]. tel: [phone] OFFICE/OUTPA TIENT VISIT, EST [facility], [address] [place] [address], [id number], [place] tel:[phone] [facility] Gouty Arthropathy, UnspeciiedThe rapeut[facility] Drug Monitoring 2 Marlene Lawrence. [address] [place] [address], [address], [place]. tel: [phone] OFFICE/OUTPA TIENT VISIT, EST [facility], [address] [place] [address], [id number], [place] tel:[phone] [facility] Gouty Arthropathy, UnspeciiedThe rapeutic Drug Monitoring 1 Marlene Lawrence. [address] [place] [address], [address], [place]. tel:[phone] Family History Family Member Type Diagnosis Age [...] Record Payers Payer name Insurance type Covered alliance party ID Authoriza tion(s) Medicare [facility] [id number] [facility] [id number] [facility] [id number] Social History Type Description Quantity Date Captured Comments Sex Male Smoking Status No Information Chief Complaint And Reason For Visit No Information Reason For Referral Reason For Referral No Information Plan Of Treatment Date Type Action Status Future Order: Lab Order Albumin, Serum ([id number]), Scheduled for: , Scheduled for: Sent Future Order: Lab Order ALT (SGP T) ([id number]), Scheduled for: , Scheduled for: Sent Future Order: Lab Order AST (SGO T) ([id number]), Scheduled for: , Scheduled for: Sent Future Order: Lab Order CBC With Differential/Platelet ([id number]), Scheduled for: , Scheduled for: Sent Future Order: Lab Order Creatini ne, Serum ([id number]), Scheduled for: , Scheduled for: Sent Future Order: Lab Order Uric Aci d, Serum ([id number]), Scheduled for: , Scheduled for: Sent Future Order: Lab Order Albumin ([id number]), Scheduled for: , Scheduled for: Sent Future Order: Lab Order ALT (SGP T) ([id number]), Scheduled for: , Scheduled for: Sent Future Order: Lab Order AST (SGO T) ([id number]), Scheduled for: , Scheduled for: Sent Future Order: Lab Order CBC w/ A utomated Differential (1001), Scheduled for: , Scheduled for: Sent Future Order: Lab Order CREATINI NE ([id number]), Scheduled for: , Scheduled for: Sent Future Order: Lab Order URIC ACI D ([id number]), Scheduled for: , Scheduled for: Sent Future Order: Lab Order URIC ACI D ([id number]), Scheduled for: , Scheduled for: Sent Future Order: Lab Order Albumin ([id number]), Scheduled for: , Scheduled for: Sent Future Order: Lab Order ALT (SGP T) ([id number]), Scheduled for: , Scheduled for: Sent Future Order: Lab Order AST (SGO T) ([id number]), Scheduled for: , Scheduled for: Sent Future Order: Lab Order CBC w/ A utomated Differential (1001), Scheduled for: , Scheduled for: Sent Future Order: Lab Order CREATINI NE ([id number]), Scheduled for: , Scheduled for: Sent Future Order: Lab Order CBC w/ A utomated Differential (1001), Scheduled for: , Scheduled for: Sent Future Order: Lab Order COMPREHE NSIVE METABOLIC PANEL (365), Scheduled for: , Scheduled for: Sent Future Order: Lab Order URIC ACI D ([id number]), Scheduled for: , Scheduled for: Sent Future [...] labs done prior to appointment. Dara Salcedo [facility] was scribe for this patient today. Follow [...]
--- OUTSIDE RECORDS SUMMARY | 2024-07-19 08:59 | XMS_ITS | Continuity of Care Document ---
Author Organization [facility] Address [address] [address] Phone Care Team Providers Care Ophthalmologist Retina Specialist Name Role Phone Howard Andersen MD Unavailable [...] Please notify the patient when ready to tile picker, thank you. Viagra 100 mg tablet take [...] Providers Copied on Encounter [facility], [address] [place], [place] [address], [employer], [place], [id number], [place] tel:[phone] [facility] [place] No Information May-2 0 7 Nathaly Lawrence. [address] [place] [address], [id number], [place]. tel:[phone] [facility], [address] [place] [address], [id number], [place] tel:[phone] [facility] [place] No Information May- 0 7 Preston Ghasoub. [address] [place] [address], [facility] [address], [employer], [place], [id number], [place]. tel:[phone] OV - Established Patient [facility], [address] [place] [address], [id number], [place] tel:[phone] [facility] [place] Erectile DysfunctionUnc Behav Micky Prostate 5 Nathaly Lawrence. [address] [place] [address], [id number], [place]. tel:[phone] OV - Established Patient [facility], [address] [place] [address], [id number], [place] tel:[phone] [facility] [place] Unc Behav Micky ProstateTesticul ar Hypofunc NecImpotence, Organic OrignNocturia 4 Varcho Love. [address], [place], [address], [place]. tel:[phone] [facility], [address], [employer], [place], [id number], [place] tel:[phone] [facility] [place] No Information 4 Jamalmyriam Aleman. [address], [address], [place], [address], [place]. tel:[phone] OV - Established Patient [facility], [address] [place] [address] , [employer], [place], [id number], [place] tel:[phone] [facility] [place] Impotence, Organic OrignUnc Behav Micky ProstateTesticul ar Hypofunc Nec 4 Jamalmyriam Aleman. [address], [address], [place], [address], [place]. tel:[phone] OV - Established Patient [facility], [address] [place] [address] , [employer], [place], [id number], [place] tel:[phone] [facility] [place] Impotence, Organic OrignUnc Behav Micky Prostate 2 Nathaly Lawrence. [address] [place] [address], [id number], [place]. tel:[phone] OV - Established Patient [facility], [address] [place] [address] , [employer], [place], [id number], [place] tel:[phone] [facility] [place] Unc Behav Micky ProstateImpotenc e, Organic Orign 1 Nathaly Lawrence. [address] [place] [address], [id number], [place]. tel:[phone] OV - Established Patient [facility], [address] [place], [place] [address] , [employer], [place], [id number], [place] tel:[phone] [facility] [place] Impotence, Organic OrignUnc Behav Micky ProstateNocturia 0-201 0 Julianna Hansen. [address] [place] [address], [id number], [place]. tel:[phone] OV - Established Patient [facility], [address] [place], [place] [address], [place], [id number], tel:[phone] [facility] [place] Impotence, Organic Orign 9 Nathaly Lawrence. [address] [place] [address], [id number], [place]. tel:[phone] Offic/outpt E&m Estab Low-mod [facility] , [address] [place] [address] [place], [place], [id number], tel:[phone] [facility] [place] No Information 7 Nathaly Lawrence. [address] [place] [address], [id number], [place]. tel:[phone] Family History Family Member Type Diagnosis Age At Onset No Information Payers Payer name Insurance type Covered libertarian ID Authorlucas kowalskijosiane(s) [facility] [id number] Social History Type Description Quantity Date Captured [...] Please notify the patient when ready to tile picker, thank you. Instructions Date Instruction Additional Infor mation No Information Assessments Type Assessment Date No Information Patient Care Teams Name Effective Dates (start - stop) Status Members No Information
== END 2024-07-19 08:44 | disposition home or self-care (01) ==
LOC: HO.MAMMO 08:43
PROVIDERS: Visit Provider Student in an Organized Health Care Education/Training Program
DX: M81.0 Age-related osteoporosis without current pathological fracture (principal); M35.3 Polymyalgia rheumatica
CPT/HCPCS: 77080

== ENCOUNTER → 2024-07-19 09:15 | Outpatient (BNV) | payer MEDICARE, SELFPAY | PROVIDERS: Visit Provider Radiology Diagnostic Radiology | DX: M81.0 Age-related osteoporosis without current pathological fracture (principal) | CPT/HCPCS: 77080 ==

== ENCOUNTER 2024-11-28 07:57 | Outpatient (AMB) | payer MEDICARE, SELFPAY ==
--- OUTSIDE RECORDS SUMMARY | 2016-05-23 04:39 | XMS_ITS | Continuity of Care Document ---
Author Organization [facility] Address [address] [address] Phone Care Team Providers Care Work Order Clerk Name Role Phone Howard Andersen MD Unavailable Unavailable Medications Medication Instructions Dosage Effective Dates (start - stop) Status Comments CIALIS TAB 20MG TAKE 1 TABLET DAILY NEEDED APPROXIMATELY 1 HOUR BEFORE INTERCOURSE 0.5-1 Tablet - Active simvastatin 10 mg Tab 10 MG - Active probenecid 500 mg Tab take 0.5 tablet (0.25G) by ORAL route 2 times every day for 1 week followed by 1 tablet (0.5 g) twice daily - Active ALBUTEROL SULFATE HFA (unknown strength) Not Available - Active OMEGA-3 FISH OIL (unknown strength) Not Available - Active Cialis 20 mg tablet take 0.5 - 1 Tablet by Oral route every three days as needed 0.5-1 Tablet - No Longer Active Please notify the patient when ready to pharmacy picking tech, thank you. Viagra 100 mg tablet take 1 tablet (100MG) by ORAL route every day as neededapproximately 1 hour before sexual activity - No Longer Active Procedures Procedure Date OV - Established Patient Urinalysis - Automated OV - Established Patient Urinalysis - Automated Testostrone - Total Venipuncture CBC Venipuncture OV - Established Patient Urinalysis - Automated OV - Established Patient Urinalysis - Automated OV - Established Patient OV - Established Patient Urinalysis - Automated OV - Established Patient Offic/outpt E&m Estab Low-mod 7 Advance Directives Directive Yes / No Effective Date File Name No Information Encounters Encounter Description Practice Location Reason(s) For Visit Diagnoses Date Provider Providers Copied on Encounter [facility], [address] [place] [address], [place], [place], [id number], [place] tel:[phone] [facility] [place] No Information May-2 0 7 Nathaly Lawrence. [address] [place] [address], [id number], [place]. tel:[phone] [facility], [address] [place] [address], [id number], [place] tel:[phone] [facility] No Information May- 0 7 Preston Ghasoub. [address] [place] [address], [facility] [[email or web address]] [address], [place], [place], [id number], [place]. tel:[phone] OV - Established Patient [facility], [address] [place] [address], [id number], [place] tel:[phone] [facility] Erectile DysfunctionUnc Behav Micky Prostate 5 Nathaly Lawrence. [address] [place] [address], [id number], [place]. tel:[phone] OV - Established Patient [facility], [address] [place] [address], [id number], [place] tel:[phone] [facility] [place] Unc Behav Micky ProstateTesticul ar Hypofunc NecImpotence, Organic OrignNocturia 4 Varcho Love. [address] , [address], [place], [address], [place]. tel:[phone] [facility], [address], [place], [place], [id number], [place] tel:[phone] [facility] [place] No Information 4 Jamalmyriam Aleman. [address], [address], [place], [address], [place]. tel:[phone] OV - Established Patient [facility], [address] [place] [address] , [place], [place], [id number], [place] tel:[phone] [facility] [place] Impotence, Organic OrignUnc Behav Micky ProstateTesticul ar Hypofunc Nec 4 Jamalmyriam Aleman. [address], [address], [place], [address], [place]. tel:[phone] OV - Established Patient [facility], [address] [place] [address] , [place], [place], [id number], [place] tel:[phone] [facility] [place] Impotence, Organic OrignUnc Behav Micky Prostate 2 Nathaly Lawrence. [address] [place] [address], [id number], [place]. tel:[phone] OV - Established Patient [facility], [address] [place] [address] , [place], [place], [id number], [place] tel:[phone] [facility] [place] Unc Behav Micky ProstateImpotenc e, Organic Orign 1 Nathaly Lawrence. [address] [place] [address], [id number], [place]. tel:[phone] OV - Established Patient [facility], [address] [place], [place] [address] , [place], [place], [id number], [place] tel:[phone] [facility] [place] Impotence, Organic OrignUnc Behav Micky ProstateNocturia 0-201 0 Julianna Hansen. [address] [place] [address], [id number], [place]. tel:[phone] OV - Established Patient [facility], [address] [place], [place] [address] [place], [place], [id number], tel:[phone] [facility] [place] Impotence, Organic Orign 9 Nathaly Lawrence. [address] [place] [address], [id number], [place]. tel:[phone] Offic/outpt E&m Estab Low-mod [facility] , [address] [place] [address] [place], [place], [id number], tel:[phone] [facility] [place] No Information 7 Nathaly Lawrence. [address] [place] [address], [id number], [place]. tel:[phone] Family History Family Member Type Diagnosis Age At Onset No Information Payers Payer name Insurance type Covered green party ID Authorlucas kowalskijosiane(s) [facility] [id number] Social History Type Description Quantity Date Captured Comments Sex Male Smoking Status No Information Chief Complaint And Reason For Visit No Information Reason For Referral Reason For Referral No Information History Of Present Illness Encounter Date Complaint History Of Prese nt Illness No Information Functional Status Date Functional Assessmen t No Information Medications Administered Medication Instructions Dosage Effective Dates (start - stop) Status Comments Cialis 20 mg tablet take 0.5 - 1 Tablet by Oral route every three days as needed 0.5-1 Tablet - No Longer Active Please notify the patient when ready to pharmacy picking tech, thank you. Instructions Date Instruction Additional Infor mation No Information Assessments Type Assessment Date No Information Patient Care Teams Name Effective Dates (start - stop) Status Members No Information
--- OUTSIDE RECORDS SUMMARY | 2021-12-15 04:45 | XMS_ITS | Continuity of Care Document ---
Author Organization [facility] Address [address] [place] [address] Phone Care Team Providers Care Isolation Washer Name Role Phone Howard Rosario MD Unavailable Unavailable Allergies, Adverse Reactions, Alerts Substance Reaction Status Criticality shellfish derived throat swelling Active No Info rmation Medications Medication Instructions Dosage Effective Dates (start - stop) Status Comments allopurinol 100 mg tablet take two tablet by mouth QD - Active Please note that this is a new prescription and discard the old prescription. metformin 500 mg tablet take 1 tablet by oral route every day with morning and evening meals 500 MG - Active montelukast 10 mg tablet take 1 tablet by oral route every day in the evening 10 MG - Active irbesartan 300 mg tablet take 1 tablet by oral route every day 300 MG - Active Proventil HFA 90 mcg/actuation Aerosol Inhaler inhale 1-2 puff by inhalation route every morning as needed - Active simvastatin 10 mg Tab take 1 tablet (10MG) by oral route every day in the evening 10 MG - Active Procedures Procedure Date OFFICE/OUTPATIENT VISIT, EST ASSAY OF SERUM ALBUMIN ALANINE AMINO (ALT) (SGPT) TRANSFERASE (AST) (SGOT) COMPLETE CBC W/AUTO DIFF WBC ASSAY OF CREATININE OFFICE/OUTPATIENT VISIT, EST OFFICE/OUTPATIENT VISIT, EST OFFICE/OUTPATIENT VISIT, EST ROUTINE VENIPUNCTURE OFFICE/OUTPATIENT VISIT, EST ASSAY OF SERUM ALBUMIN ALANINE AMINO (ALT) (SGPT) TRANSFERASE (AST) (SGOT) COMPLETE CBC W/AUTO DIFF WBC ASSAY OF CREATININE ROUTINE VENIPUNCTURE COMPLETE CBC W/AUTO DIFF WBC OFFICE/OUTPATIENT VISIT, EST OFFICE/OUTPATIENT VISIT, EST OFFICE/OUTPATIENT VISIT, EST IMMUNIZATION ADMIN VACCINE TOXOID ROUTINE VENIPUNCTURE ASSAY OF SERUM ALBUMIN ALANINE AMINO (ALT) (SGPT) TRANSFERASE (AST) (SGOT) COMPLETE CBC W/AUTO DIFF WBC ASSAY OF CREATININE OFFICE/OUTPATIENT VISIT, EST COMPLETE CBC W/AUTO DIFF WBC OFFICE/OUTPATIENT VISIT, EST ROUTINE VENIPUNCTURE ROUTINE VENIPUNCTURE OFFICE/OUTPATIENT VISIT, EST ROUTINE VENIPUNCTURE OFFICE/OUTPATIENT VISIT, EST OFFICE/OUTPATIENT VISIT, EST ROUTINE VENIPUNCTURE FLU VACCINE, 3 YRS & >, IM IMMUNIZATION ADMIN Advance Directives Directive Yes / No Effective Date File Name No Information Encounters Encounter Description Practice Location Reason(s) For Visit Diagnoses Date Provider Providers Copied on Encounter [facility], [address] [place] [address], [id number], [place] tel:[phone] [facility] No Information 2 Marlene Lawrence. [address] [place] [address] [place], [address], [place]. [phone] [facility], [address] [place] [address], [id number], [place] tel:[phone] [facility] No Information 2 Marlene Lawrence. [address] [place], [place] [address] , [place], [address], [place]. [phone] OFFICE/OUTPA TIENT VISIT, EST [facility], [address] [place] [address], [id number], [place] tel:[phone] [facility] [place] Follow Up of Idiopathic gout, multiple sites (chief complaint) Idiopathic gout, multiple sitesOther long-term (current) drug therapyBody mass index [BMI]30.0-30. 9, adult May- 2 Marlene Lawrence. [address] [place] [address], [address], [place]. [phone] Referring Provider: Howard Muhammad, [address] [place] [address], [address]. tel:[phone] OFFICE/OUTPA TIENT VISIT, EST [facility], [address] [place] [address], [id number], [place] tel:[phone] [facility] [place] Follow Up of Idiopathic gout, multiple sites (chief complaint) Idiopathic gout, multiple sitesOther intermodal truck driver (current) drug therapyBody mass index [BMI]30.0-30. 9, adult 1 Marlene Lawrence. [address] [place] [address], [id number], [place]. [phone] Referring Provider: MARTI Murry [address], [place], [address]. tel:[phone] OFFICE/OUTPA TIENT VISIT, EST [facility], [address] [place] [address], [id number], [place] tel:[phone] [facility] [place] Follow Up of Idiopathic gout, multiple sites (chief complaint) Idiopathic gout, multiple sitesOther intermodal truck driver (current) drug therapyBody mass index (BMI) 31.0-31.9, adult 0 Marlene Lawrence. [address] [place] [address], [place], [address], [place]. tel:[phone] Referring Provider: MARTI Murry[address], [place], [address]. tel:[phone] OFFICE/OUTPA TIENT VISIT, EST [facility], [address] [place] [address], [id number], [place] tel:[phone] [facility] Follow Up of Idiopathic gout, multiple sites (chief complaint) Idiopathic gout, multiple sitesOther intermodal truck driver (current) drug therapyBody mass index (BMI) 31.0-31.9, adult Mar-0 3-202 0 Marlene Lawrence. [address] [place] [address], [address], [place]. tel:[phone] Referring Provider: Hadley Freeman, ENT [address], [place], [address]. tel:[phone] OFFICE/OUTPA TIENT VISIT, EST [facility], [address] [place] [address], [id number], [place] tel:[phone] [facility] Follow Up of Idiopathic gout, multiple sites (chief complaint) Idiopathic gout, multiple sitesOther intermodal truck driver (current) drug therapyBody mass index (BMI) 31.0-31.9, adult May-0 9-201 9 Marlene Lawrence. [address] [place] [address], [address], [place]. tel:[phone] Referring Provider: Howard Muhammad, [address] [place] [address], [address]. tel:[phone] OFFICE/OUTPA TIENT VISIT, EST [facility], [address] [place] [address], [id number], [place] tel:[phone] [facility] Follow Up of Idiopathic chronic gout, unsp ankle and fo (chief complaint) Body mass index (BMI) 31.0-31.9, adultIdiopath ic gout, multiple sitesOther intermodal truck driver (current) drug therapy Nov-0 8-201 8 Marlene Lawrence. [address] [place] [address], [address], [place]. tel:[phone] Referring Provider: Howard Muhammad, [address] [place] [address], [address]. 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 [address] [place] [address], [address], [place]. tel:[phone] Referring Provider: Hadley Freeman, ENT [address], [place], [address]. tel:[phone] OFFICE/OUTPA TIENT VISIT, EST [facility], [address] [place] [address], [id number], [place] tel:[phone] [facility] Follow Up of Idiopathic chronic gout (chief complaint) Idiopathic chronic gout, unsp ankle and foot, without tophusOther long-term (current) drug therapy 6 Marlene Lawrence. [address] [place] [address], [address], [place]. tel:[phone] Referring Provider: Howard Muhammad, [address] [place] [address], [address]. tel:[phone] [facility], [address] [place] [address], [id number], [place] tel:[phone] [facility] No Information 6 Marlene Lawrence. [address] [place] [address], [address], [place]. tel:[phone] OFFICE/OUTPA TIENT VISIT, EST [facility], [address] [place] [address], [id number], [place] tel:[phone] [facility] Follow Up of Gouty arthropathy (chief complaint) Idiopathic chronic gout, unsp ankle and foot, without tophusOther long-term (current) drug therapy 5 Marlene Lawrence. [address] [place] [address], [address], [place]. tel:[phone] [facility], [address] [place] [address], [id number], [place] tel:[phone] [facility] Idiopathic gout, multiple sitesOther intermodal truck driver (current) drug therapy 5 Marlene Lawrence. [address] [place] [address], [address], [place]. tel: [phone] OFFICE/OUTPA TIENT VISIT, EST [facility], [address] [place] [address], [id number], [place] tel:[phone] [facility] Follow Up of Gouty arthropathy (chief complaint) Gouty Arthropathy, UnspeciiedThe rapeutic Drug Monitoring 4 Marlene Lawrence. [address] [place] [address], [address], [place]. tel: [phone] OFFICE/OUTPA TIENT VISIT, EST [facility], [address] [place] [address], [id number], [place] tel:[phone] [facility] Gouty arthropathy (chief complaint) Gouty Arthropathy, UnspeciiedThe rapeutic Drug Monitoring 3 Marlene Lawrence. [address] [place] [address], [address], [place]. tel: [phone] OFFICE/OUTPA TIENT VISIT, EST [facility], [address] [place] [address], [id number], [place] tel:[phone] [facility] Gouty Arthropathy, UnspeciiedThe rapeutic Drug Monitoring 2 Marlene Lawrence. [address] [place] [address], [address], [place]. tel: [phone] OFFICE/OUTPA TIENT VISIT, EST [facility], [address] [place] [address], [id number], [place] tel:[phone] [facility] Gouty Arthropathy, UnspeciiedThe rapeutic Drug Monitoring 1 Marlene Lawrence. [address] [place] [address], [address], [place]. tel:[phone] Family History Family Member Type Diagnosis Age At Onset Sister Problem (finding) diabetes melli tus in first degree relative Sister Problem (finding) Alive and well Brother Problem (finding) gout mother Problem (finding) rheumatoid arthritis Son Problem (finding) gout father Problem (finding) Leukemia 78 Brother Problem (finding) Alive and well Brother Problem (finding) Alive and well Brother Problem (finding) Alive and well Daughter Problem (finding) Alive and well Brother Problem (finding) Alive and well Brother Problem (finding) Alive and well Immunizations Vaccine Date Status Comments Influenza, injectable, MDCK, preservative free Flucelvax administered Source: New Immuniza tion Record Payers Payer name Insurance type Covered libertarian ID Authoriza tion(s) Medicare [facility] [id number] [facility] [id number] [facility] [id number] Social History Type Description Quantity Date Captured Comments Sex Male Smoking Status No Information Chief Complaint And Reason For Visit No Information Reason For Referral Reason For Referral No Information Plan Of Treatment Date Type Action Status Future Order: Lab Order Albumin, Serum ([id number]), Scheduled for: , Scheduled for: Sent Future Order: Lab Order ALT (SGP T) ([id number]), Scheduled for: , Scheduled for: Sent Future Order: Lab Order AST (SGO T) ([id number]), Scheduled for: , Scheduled for: Sent Future Order: Lab Order CBC With Differential/Platelet ([id number]), Scheduled for: , Scheduled for: Sent Future Order: Lab Order Creatini ne, Serum ([id number]), Scheduled for: , Scheduled for: Sent Future Order: Lab Order Uric Aci d, Serum ([id number]), Scheduled for: , Scheduled for: Sent Future Order: Lab Order Albumin ([id number]), Scheduled for: , Scheduled for: Sent Future Order: Lab Order ALT (SGP T) ([id number]), Scheduled for: , Scheduled for: Sent Future Order: Lab Order AST (SGO T) ([id number]), Scheduled for: , Scheduled for: Sent Future Order: Lab Order CBC w/ A utomated Differential (1001), Scheduled for: , Scheduled for: Sent Future Order: Lab Order CREATINI NE ([id number]), Scheduled for: , Scheduled for: Sent Future Order: Lab Order URIC ACI D ([id number]), Scheduled for: , Scheduled for: Sent Future Order: Lab Order URIC ACI D ([id number]), Scheduled for: , Scheduled for: Sent Future Order: Lab Order Albumin ([id number]), Scheduled for: , Scheduled for: Sent Future Order: Lab Order ALT (SGP T) ([id number]), Scheduled for: , Scheduled for: Sent Future Order: Lab Order AST (SGO T) ([id number]), Scheduled for: , Scheduled for: Sent Future Order: Lab Order CBC w/ A utomated Differential (1001), Scheduled for: , Scheduled for: Sent Future Order: Lab Order CREATINI NE ([id number]), Scheduled for: , Scheduled for: Sent Future Order: Lab Order URIC ACI D ([id number]), Scheduled for: , Scheduled for: Sent Future Order: Lab Order CBC w/ A utomated Differential (1001), Scheduled for: , Scheduled for: Sent Future Order: Lab Order COMPREHE NSIVE METABOLIC PANEL (365), Scheduled for: , Scheduled for: Sent Future Order: Lab Order COMPREHE NSIVE METABOLIC PANEL (365), Appointment on: , Collected on: , Sent on: Sent Future Order: Lab Order Uric aci d level, Appointment on: , Collected on: , Sent on: Sent History Of Present Illness Encounter Date Complaint History Of Prese nt Illness Follow Up of Idiopat hic gout, multiple sites Follow up visit Follow Up of Idiopat hic gout, multiple sites Follow up visit Follow Up of Idiopat hic gout, multiple sites Follow up visit Follow Up of Idiopat hic gout, multiple sites Patient is here for a follow up visit/ no issues Follow Up of Idiopat hic gout, multiple sites Patient is here for a follow up visit/ no issues Follow Up of Idiopat hic chronic gout, unsp ankle and fo Idiopathic chronic g out, unsp ankle and foot, without t patient had labs done prior to appointment. Dara Salcedo [facility] was scribe for this patient today. Follow Up of Idiopat hic chronic gout pt does not currently have any symptoms, pt has not had any flares since last o/v. Pt had labs done last weeks. Follow Up of Gouty arthropathy S everity level is 0. Location is nothing. The patient describes the discomfort/pain as nothing. It occurs rarely. The problem is stable. Denies aggravating factors. Denies relieving factors. Follow Up of Gouty arthropathy T he symptoms are reported as being mild. The symptoms occur stable. Functional Status Date Functional Assessmen t No Information Instructions Date Instruction Additional Infor mation Giving encouragement to exercise Related to Body mass index [BMI] 30.0-30.9, adult Giving encouragement to exercise Related to Body mass index [BMI] 30.0-30.9, adult Giving encouragement to exercise Related to Body mass index (BMI) 31.0-31.9, adult Prescribed activity/exercise edu cation Related to Body mass index (BMI) 31.0-31.9, adult Giving encouragement to exercise Related to Body mass index (BMI) 31.0-31.9, adult Giving encouragement to exercise Related to Body mass index (BMI) 31.0-31.9, adult Assessments Type Assessment Date No Information Patient Care Teams Name Effective Dates (start - stop) Status Members No Information
--- OUTSIDE RECORDS SUMMARY | 2024-11-28 08:00 | XMS_ITS | Encounter Summary ---
Author Organization [facility] Address [address] [place] [address] Phone Care Team Providers Care Adviser Sales Name Role Phone Lalo Graham MD Primary Care Provider [phone] Erasmo Freeman MD Primary Care Provider [phone] Encounter Details Date Type Department Care Team (Late Contact Info) Description 11/27/2020 Procedure Pass [facility] Endoscopy Admitting Dept Virtual Department [address] [place] [address] Social History Tobacco Use Types Packs/Day Years Used Date Smoking Tobacco: Never Smokeless Tobacco: Never Alcohol Use Standard Drinks/Week Comments Yes 2 (1 standard drink = 0.6 oz pur e alcohol) Sex and Gender Information Value Date Recorded Sex Assigned at Not on file Legal Sex Male 9:58 PM EDT Gender Identity Not on file Sexual Orientation Not on file documented as of this encounter Plan of Treatment Upcoming Encounters Date Type Department Care Team (Late Contact Info) Description 07/27/2026 1:00 PM EDT Office Visit [facility] Rheumatology [address] [place] [address] Harper Hawk MD [address] [facility], [address] [place] [address] [email or web address] documented as of this encounter Visit Diagnoses Not on filedocumented in this encounter Care Teams Adviser Sales Relationship Specialty Start Date End Date Lalo Graham MD [address] [place] [address] [place] [id number] [email or web address] PCP - General Family Medicine 11/27/20 12/29/22 Erasmo Freeman MD [address] [place] [address] [address] [place] [address] [email or web address] PCP - General Family Medicine 12/30/22 documented as of this encounter Additional Source Comments The information contained in this document represents components of the legal health record. It is not the complete legal health record.[facility]
--- OUTSIDE RECORDS SUMMARY | 2024-11-28 08:00 | XMS_ITS | Encounter Summary ---
Author Organization [facility] Address [address] [facility] [address] [place] [address] Phone Care Team Providers Care Computing Services Director Name Role Phone Marybel Welch NP Primary Care Provider Lalo Graham MD Primary Care Provider [phone] Erasmo Freeman MD Primary Care Provider [phone] Encounter Details Date Type Department Care Team (Late st Contact Info) Description 11/09/2018 Ancillary Orders Virtual Department [address] [place] [address] Marybel Welch, NISSA [address] [place] [address] [email or web address] Pain of left calf; Left leg swelling Social History Tobacco Use Types Packs/Day Years Used Date Smoking Tobacco: Never Assessed Sex and Gender Information Value Date Recorded Sex Assigned at Not on file Legal Sex Male 9:58 PM EDT Gender Identity Not on file Sexual Orientation Not on file documented as of this encounter Plan of Treatment Upcoming Encounters Date Type Department Care Team (Late st Contact Info) Description 07/27/2026 1:00 PM EDT Office Visit [facility] Rheumatology [address] [place] [address] Harper Hawk MD [address] [facility], [address] [place] [address] documented as of this encounter Results * US Lower Extremity Veins Duplex (Left) (11/09/2018 12:39 PM EDT) Anatomical Region Laterality Modality Hip Left, Thigh Left, Knee L eft, Leg Left, Ankle Left, Foot Left Ultrasound 11/09/2018 12:4 3 PM EDT Impressions 11/09/2018 12:44 PM EDT Normal ultrasound evaluation of the deep venous system of the left leg. No findings of DVT are seen. There is a popliteal fossa fluid collection consistent with a Ortega's cyst. S/S: LEFT LEG PAIN, LEFT LEG SWELLING LEG CALF PAIN, LEFT CALF SWELLING R/O DVT left popliteal fossa Ortega's cyst. POS [id number] Narrative 11/09/2018 12:44 PM EDT The deep venous system of the left leg is well-visualized with mcmahon scale imaging, color-flow imaging, and Doppler spectral analysis. No findings of deep venous thrombophlebitis are identified. There is complete compression of the deep venous system evident. Normal color flow is seen. There is excellent augmentation on the left. Evaluation of the popliteal fossa discloses a 6.9 x 1.6 x 3.8 cm fluid collection consistent with a Ortega's cyst cyst.. Procedure Note Nikko Florez MD - 11/09/2018 The deep venous system of the left leg is well-visualized with mcmahon scaleimaging, color-flow imaging, and Doppler spectral analysis. No findingsof deep venous thrombophlebitis are identified. There is completecompression of the deep venous system evident. Normal color flow is seen.There is excellent augmentation on the left. Evaluation of the poplitealfossa discloses a 6.9 x 1.6 x 3.8 cm fluid collection consistent with aBaker's cyst cyst.. IMPRESSION: Normal ultrasound evaluation of the deep venous system of the left leg.No findings of DVT are seen. There is a popliteal fossa fluid collectionconsistent with a Ortega's cyst. S/S: LEFT LEG PAIN, LEFT LEG SWELLING LEG CALF PAIN, LEFT CALF SWELLING R/O DVT left popliteal fossa Ortega'scyst. POS [id number] Marybel Welch NP US VASCULAR Final R esult documented in this encounter Visit Diagnoses Diagnosis Pain of left calf Left leg swelling Pain of left calf Left leg swelling documented in this encounter Care Teams Computing Services Director Relationship Specialty Start Date End Date Marybel Welch NP [address] [place] [address] [email or web address] PCP - General Family Medicine 11/09/18 11/26/20 Lalo Graham MD [address] [facility] [address] [place] [address] [email or web address] PCP - General Family Medicine 11/27/20 12/29/22 Erasmo Freeman MD [address] [facility] [address] [place] [address] [email or web address] PCP - General Family Medicine 12/30/22 documented as of this encounter Additional Source Comments The information contained in this document represents components of the legal health record. It is not the complete legal health record.[facility]
--- OUTSIDE RECORDS SUMMARY | 2024-11-28 08:00 | XMS_ITS | Clinical Summary ---
Author Organization [facility] Address [address] [address] Phone Care Team Providers Care Cathode Maker Name Role Phone Erasmo Cornell MD Primary Care Provider [phone] Allergies No known active allergies Medications predniSONE (DELTASONE) 10 MG tablet Take 12.5 mg by mouth daily with breakfast. Active multivitamin-mi nerals-lutein (CENTRUM SILVER) Tab Take 1 tablet by mouth daily. Active simvastatin (ZOCOR) 40 MG tablet Take 40 mg by mouth daily. Active Ca cit-D3-mag#11-z eli-zvfd-ysy-italo r (CALTRATE 600+D) 600 mg calcium- 800 unit-50 mg Tab Take 1 tablet by mouth daily. Active hydroxychloroqu ine (PLAQUENIL) 200 mg tablet Take 200 mg by mouth 2 (two) times a day. Active omega 4-gtc-vwe-fish oil 1,000 mg (120 mg-180 mg) Cap Take 1 capsule by mouth daily. Active Active Problems No known active problems Encounters Date Type Department Care Team Description 09/18/2024 Transcribe Orders [facility] Rheumatology [address] [place] [address] Erasmo Cornell MD Polymyalgia rheumatica (Primary Dx) from Last 3 Months Social History Tobacco Use Types Packs/Day Years Used Date Smoking Tobacco: Never Smokeless Tobacco: Never Tobacco Cessation:Counseling Given: Not Answered Alcohol Use Standard Drinks/Week Comments Yes 7 (1 standard drink = 0.6 oz pur e alcohol) Education Answer Date Recorded Are you interested in more education? Not on angela e 07/01/2022 Are you concerned about learning? Not on file 07/01/2022 No 07/01/2022 No 07/01/2022 Digital Access Answer Date Recorded No 07/30/2022 No 07/30/2022 Reliable internet access at home? Not on file 07/30/2022 Device with a working camera? Not on file Intimate Partner Violence Answer Date R ecorded Denied Basic Needs Not on file 12/29/2022 In the past 12 months have y ou been in a relationship with a person who hurts, threatens, or tries to control you? No 12/29/2022 Worried food would run out Not on file 12/29 In the past 12 months have y ou been in a relationship with a person who hurts, threatens, or tries to control you? No 12/29/2022 Sex and Gender Information Value Date Recorded Sex Assigned at Not on file Legal Sex Male 9:58 PM EDT Gender Identity Not on file Sexual Orientation Not on file Last Filed Vital Signs Vital Sign Reading Time Taken Comments Blood Pressure 106/66 12/30/2022 11:30 AM EDT Pulse 82 12/30/2022 11:30 AM EDT Temperature 36 C (96.8 F) 12/30/2022 11:13 AM EDT Respiratory Rate 18 12/30/2022 11:30 AM EDT Oxygen Saturation 97% 12/30/2022 11:30 AM EDT Inhaled Oxygen Concentration - - Weight 86.2 kg (190 lb) 12/29/2022 11:37 AM EDT Height 172.7 cm (5' 8 ) 12/29/2022 11:37 AM EDT Body Mass Index 28.89 12/29/2022 11:37 AM EDT Plan of Treatment Upcoming Encounters Date Type Department Care Team (Late st Contact Info) Description 07/27/2026 1:00 PM EDT Office Visit [facility] Rheumatology [address] [place] [address] Harper Hawk MD [address] [facility], [address] [place] [address] Health Maintenance Due Date Last Done Comments LIPID PANEL 1952 DEPRESSION SCREENING 1964 HEPATITIS C SCREENING 1970 COLOGUARD 1997 FIT TEST 1997 FOBT 1997 SIGMOIDOSCOPY 1997 VIRTUAL COLONOSCOPY 1997 INFLUENZA VACCINE (#1) 2024 , 12/16/2021, 12/25/2020, Additional history exists COVID-19 VACCINE ( season) 2024 12/20/2021, 06/11/2021, 12/11/2020, Additional history exists Adult Td,Tdap Booster 07/24/2030 07/24/2020 , 12/13/2010, 08/11/2000 COLONOSCOPY 12/30/2032 12/30/2022, 11/27/2020 COLORECTAL CANCER SCREENING 12/30/2032 HEPATITIS A VACCINES Aged Out 08/04/2000 No long er eligible based on patient's age to complete this topic ZOSTER VACCINES Completed 02/21/2019, 12/04, 02/25/2014 PNEUMOCOCCAL VACCINES (50+ years) Completed 11/06/2020, 09/11/2017 RSV VACCINE Completed 12/08/2022 SMOKING STATUS SCREENING (Once After 26 Yrs) Completed 12/30/2022 HIB VACCINES Aged Out No longer eligi ble based on patient's age to complete this topic MENINGOCOCCAL VACCINES (ACWY) Aged Out No longer eligible based on patient's age to complete this topic MENINGOCOCCAL VACCINES (B) Aged Out N o longer eligible based on patient's age to complete this topic Medical Devices Not on file Procedures Procedure Name Priority Date/Time Associated Diagnosis Comments ENDOSCOPY, COLON 12/30/2022 10:4 5 AM EDT from Last 3 Months or Most Recently Relevant to Health Maintenance Results * ENDOSCOPY, COLON (12/30/2022 10:45 AM EDT) Narrative Transcriptions Phuc Gibbons MD - 12/30/2022 10:45 AM EDT [facility] Patient Name: Nick Todd Attending MD:: PHUC GIBBONS MD, Procedure Date: 12/30/2022 10:45AM Date of : 1950 Age: 72 Admit Type: Outpatient Gender: Male Room: [place] [address] Referring MD: ERASMO CORNELL MD Exam Type: Colonoscopy Indications: High risk colon cancer surveillance: Personalhistory of colonic polyps, Last colonoscopy: 2017 Medications: Monitored Anesthesia Care Procedure: Informed consent was obtained from the patientafter discussion of the indications, limitations, alternatives, benefits, and risks of the procedure. Risks specifically discussed include but are not limited to medication reactions, missed lesions, bleeding, perforation, or the need for emergent surgery. Throughout the procedure, the patient's blood pressure, pulse, end-tidal CO2, and oxygensaturations were monitored continuously. The Olympus adult variable colonoscope [id number] #3 was introduced through the anus and advanced to the terminal ileum. The colonoscopy was performedwithout difficulty. The patient tolerated the procedurewell. The quality of the bowel preparation was good. Anatomical landmarks were photographed. Complications: No immediate complications. Estimated blood loss:None. Findings: The perianal and digital rectal examinations were normal. Two sessile polyps were found in the ascendingcolon. The polyps were 3 mm in size. These polyps were removed with a cold snare. Resection and retrieval were complete. The rectum, recto-sigmoid colon, sigmoid colon, descending colon, splenic flexure, transversecolon, hepatic flexure, cecum, appendiceal orifice,ileocecal valve, ileum, rectum (on retroflexion) andascending colon (on retroflexion) appeared normal. Impression: - Two 3 mm polyps in the ascending colon, removedwith a cold snare. Resected and retrieved. - The rectum (on retroflexion), ascending colon (on retroflexion), rectum, sigmoid colon, descending colon, splenic flexure, transverse colon, hepatic flexure, cecum, recto-sigmoid colon, ileocecalvalve, appendiceal orifice and terminal ileum arenormal. Recommendation: - Discharge patient to home. - Resume previous diet. - Continue present medications. - Await pathology results. - Repeat colonoscopy in 7 years for surveillance. - I will send you pathology results by letter. Ifyou do not get results in 3 weeks telephone myoffice. PHUC GIBBONS MD 12/30/2022 11:12:05 AM This report has been signed electronically. Number of Addenda: 0 Note Initiated On: 12/30/2022 10:45 AM Procedure Code(s): --- Professional --- 07964, Colonoscopy, flexible; with removal of tumor(s), polyp(s), or other lesion(s) by snare technique --- Technical --- 94533, Colonoscopy, flexible; with removal of tumor(s), polyp(s), or other lesion(s) by snare technique Diagnosis Code(s): --- Professional --- Z86.010, Personal history of colonic polyps D12.2, Benign neoplasm of ascending colon --- Technical --- Z86.010, Personal history of colonic polyps D12.2, Benign neoplasm of ascending colon CPT copyright 2021 [employer]. All rights reserved. The codes documented in this report are preliminary and upon medical biller/coder reviewmay be revised to meet current compliance requirements. Procedure Date: 12/30/2022 10:45:[address] [place] [id number] Erasmo Cornell MD GI PROCEDURE ORDERABLES Final Result from Last 3 Months or Most Recently Relevant to Health Maintenance Insurance MEDICARE PART A & B Member Subscriber Plan / Payer (Ef fective 2017-Present) Name:Todd Nick Member ID:[id number] Relation to Subscriber:Self Name:Nick Todd Subscriber ID:[id number] Payer ID:[id number] Group ID:Not on file Type:Medicare Address: [employer] [address] [employer] MEDEX SUPPLEMENT MEDICARE PART A & B [employer] MEDEX SUPPLEMENT MEDICARE PART A & B [employer] MEDEX SUPPLEMENT MEDICARE PART A & B [employer] MEDEX SUPPLEMENT MEDICARE PART A & B [employer] MEDEX SUPPLEMENT MEDICARE PART A & B [employer] MEDEX SUPPLEMENT MEDICARE PART A & B [employer] MEDEX SUPPLEMENT MEDICARE PART A & B [employer] MEDEX SUPPLEMENT MEDICARE PART A & B [employer] MEDEX SUPPLEMENT Care Teams Cathode Maker Relationship Specialty Start Date End Date Erasmo Cornell MD PCP - General Family Medicine 12/30/22 Additional Source Comments The information contained in this document represents components of the legal health record. It is not the complete legal health record.[facility]
--- OUTSIDE RECORDS SUMMARY | 2024-11-28 08:00 | XMS_ITS | Encounter Summary ---
Author Organization [facility] Address [address] [address] Phone Care Team Providers Care Assessment Director Name Role Phone Erasmo Freeman MD Primary Care Provider Encounter Details Date Type Department Care Team (Late st Contact Info) Description 05/29/2024 Transcribe Orders Virtual Department [address] [place] [address] Geovanna Yanes MD [address] [place] [address] [place] [address] Age-related osteoporosis without current pathological fracture (Primary Dx); Polymyalgia rheumatica Social History Tobacco Use Types Packs/Day Years Used Date Smoking Tobacco: Never Smokeless Tobacco: Never Alcohol Use Standard Drinks/Week Comments Yes 7 [...] Description 07/27/2026 1:00 PM EDT Office Visit [facility] Rheumatology [address] [place] [address] Harper Hawk MD [address] [facility], [address] [place] [address] [email or web address] documented as of this encounter Visit Diagnoses Diagnosis Age-related osteoporosis without current pathological fracture- Primary Polymyalgia rheumatica documented in this encounter Care Teams Assessment Director Relationship Specialty Start Date End Date rEasmo Freeman MD [email or web address] PCP - General Family Medicine 12/30/22 documented as of this encounter Additional Source Comments The information contained in this document represents components of the legal health record. It is not the complete legal health record.[facility]
--- OUTSIDE RECORDS SUMMARY | 2024-11-28 08:00 | XMS_ITS | Encounter Summary ---
Author Organization [facility] Address [address] [address] Phone Care Team Providers Care Director Government Name Role Phone Erasmo Freeman MD Primary Care Provider [phone] Encounter Details Date Type Department Care Team (Late st Contact Info) Description 12/30/2022 Procedure Pass [facility] Endoscopy Admitting Dept Virtual Department [address] [place] [address] Social History Tobacco Use Types Packs/Day Years [...] Description 07/27/2026 1:00 PM EDT Office Visit [facility] Rheumatology [address] [place] [address] Harper Hawk MD [address] [facility], [address] [place] [address] [email or web address] documented as of this encounter Visit Diagnoses Not on filedocumented in this encounter Care Teams Director Government Relationship Specialty Start Date End Date Erasmo Freeman MD [email or web address] PCP - General Family Medicine 12/30/22 documented as of this encounter Additional Source Comments The information contained in this document represents components of the legal health record. It is not the complete legal health record.[facility]
--- NOTE | 2024-11-28 08:01 | A.OFFVIS_ITS ---
Vital Signs 11/28/24 08:04 Height 5 ft 8 in Weight 189 lb 6.033 oz BMI 28.8 BP 122/70 Blood Pressure Location Rt brachial Position Sitting Pulse 69 Pulse Source Pulse Oximeter Pulse Oximetry (%) 98 Oxygen Delivery Method Room Air Intake Visit Reasons: RA Intake Note: Patient presents for RA follow up. Allergies No Known Allergies Allergy (Verified 11/28/24 08:04) Medication List - Last Reconciled 11/28/24 by Geovanna Yanes MD hydroxychloroquine 200 mg PO BID 90 days multivitamin 1 tab PO DAILY simvastatin 40 mg PO BEDTIME HPI Comments Details: Patient is a 74-year-old male with type 2 diabetes, osteopenia, bilateral knee osteoarthritis, PMR and seronegative rheumatoid arthritis here today for follow up Interval History: Patient last seen 05/29/24 with me. - On Hydroxychloroquine 200mg bid - Patient reports he continues to do well on plaquenil - Has some intermittent stiffness in the fingers but not prolonged - Also notes pain to just above the left iliac especially after prolonged sitting - No evidence of synovitis on exam, no changes made to medication Today - On Hydroxychloroquine 200mg bid - Doing well, no complaints - Sometimes gets back spasms that start in the AM but improves as the day goes on - Also noting pain over his anterior left myers Rheumatologic History: Initial history with Dr. Foss: This is a 71 -year-old male with polymyalgia rheumatica.? He used to follow-up with Dr. Sanches but she left the practice.?? Per Dr. Sanches's notes: Diagnosed with PMR in April 2020.? He was having soreness in his hands, shoulders then progressed to upper arms and thighs.? He was started on prednisone 15 mg for 4 weeks then 12.5 mg for 2 weeks then 10 mg for 2 weeks then decrease by 1 mg every 2 weeks.? He took it for 6 months.? When he went down to 4 mg, his symptoms started reappearing again in the right 2 fingers where it initially started. He restarted prednisone 15 mg on October 23 same dosage Patient was tapering his prednisone dose by 1 mg a month.? He he has been on prednisone 1 mg daily since the beginning of February.? He feels well overall except for some stiffness of his right 2nd 3rd and 4th fingers.? This started when he was on 3 mg of prednisone. Finally tapered off prednisone 2021 Re-presented 09/2022 with joint pain involving the hands and labeled seronegative rheumatoid arthritis HCQ 09/2022 effective Osteopenia DEXA scan 2020? Lumbar spine T-score: -0.2? Femoral neck T-score: -1.6 Total hip T-score: -1.0 03/08 radius T-score: -1.1 Patient took alendronate for about 1 year until February of 2022. No side effects. Patient is not currently on prednisone. He does not need the alendronate at this point Current Rheumatology Medication(s): Plaquenil 200 mg b[facility]i.d. [facility] Medical History Osteopenia Erectile dysfunction Plantar fasciitis Osteoarthritis GERD (gastroesophageal reflux disease) Peripheral venous insufficiency Hyperlipidemia Type 2 diabetes mellitus without complication Polymyalgia rheumatica Surgical History Hx of colonoscopy Hx of vasectomy Family History Father Spinal stenosis Mother Arthritis Brother Type 1 diabetes mellitus Social History Alcohol intake: current Alcohol intake frequency: a few times a week Patient Tobacco Use Status: Never used Tobacco Current occupational status: previously employed and retired 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 Review of Systems Const Details: Review of Systems Constitutional: Denies fever, chills, weight loss ENT: Denies vision changes, eye pain or eye redness, dental caries, dry mouth GI: Denies nausea, vomiting, diarrhea, abdominal pain, change in BM Pulm: Denies SOB, VARGHESE, hemoptysis, wheezing Cards: Denies chest pain, palpitations Skin: Denies Raynaud's, rash, nail changes, photosensitivity, PUBLIC SPEAKING COACH: Denies headaches, weakness, paresthesias, recurrent falls MSK: as per HPI All other systems reviewed and are unremarkable except noted above Physical Exam Exam Exam: Vital signs reviewed Physical Examination CONSTITUITIONAL Patient alert and cooperative. Well appearing and in no apparent painful distress MSK Hands * Right Hand: Able to make a fist. No swelling or tenderness to palpation of the MCPs, PIPs or DIPs. * Left Hand: Able to make a fist. No swelling or tenderness to palpation of the MCPs, PIPs or DIPs. * Herbedens nodes noted bilaterally Wrists * Right Wrist: Slightly decreased ROM to flexion. No swelling or TTP * Left Wrist: Slightly decreased ROM to flexion. No swelling or TTP Elbows * Right Elbow: Full ROM. No swelling or TTP. No TTP of the medial epicondyle. No TTP of the lateral epicondyle * Left Elbow: Full ROM. No swelling or TTP. No TTP of the medial epicondyle. No TTP of the lateral epicondyle Shoulders * Right shoulder: Full ROM. No swelling noted. No TTP of the AC joint. No TTP of the subacromial bursa. No TTP of the posterior shoulder * Left shoulder: Full ROM. No swelling noted. No TTP of the AC joint. No TTP of the subacromial bursa. No TTP of the posterior shoulder Knees * Right knee: Full ROM. No swelling noted. No TTP of the knee joint line. No TTP of pes anserine bursa * Left knee: Full ROM. No swelling noted. No TTP of the knee joint line. No TTP of pes anserine bursa. * Crepitations felt bilaterally Lower leg * No TTP over the tibial tuberostiy. But TTP about 1cm distal to the tibial tuberosity. No erythema or swelling Ankles * Right ankle: Good ankle dorsiflexion and plantar flexion. No swelling. No TTP of the ankle joint * Left ankle: Good ankle dorsiflexion and plantar flexion. No swelling. No TTP of the ankle joint Feet * Right foot: Negative squeeze test * Left foot: Negative squeeze test Tender points? * No tenderness to palpation of the bilateral trapezius, supraspinatus, anterior costochondral junctions, bilateral suboccipital muscle insertions SKIN No rashes Vital Signs: Last Vital Signs Pulse 69 11/28/24 08:04 BP 122/70 11/28/24 08:04 Pulse Ox 98 11/28/24 08:04 Oxygen Delivery Method Room Air 11/28/24 08:04 BMI result Body Mass Index 28.8 Results Reviewed Results Reviewed: 11/22/2024 VMG WBC 4.04 Hb 15.7 Plt 155 BUN 24 Cr 1.2 eGFR >60 AST 33 ALT 42 Vit D 41 ESR 3.0 CRP 0.9 DEXA 07/2024 FINDINGS: The bone mineral density of the lumbar spine is 1.491 with a T-score of 2.3, and a Z-score of 2.6. This is indicative of normal bone mineral density. The bone mineral density of the left total hip is 1.028 with a T-score of -0.5, and a Z-score of 0.1. This is indicative of normal bone mineral density. The bone mineral density of the left femoral neck is 0.934 with a T-score of -1.0, and a Z-score of 0.1. This is indicative of normal bone mineral density. Assessment & Plan Assessment & Plan (1) Seronegative rheumatoid arthritis: Comment: initially dx with PMR in 2019 tt prednisone relabeled to seroneg RA 09/2022 HCQ 09/2022 effective Code(s): M06.00 - Rheumatoid arthritis without rheumatoid factor, unspecified site Category: Medical Plan: #Seronegative RA Patient is a 74-year-old male with seronegative rheumatoid arthritis currently in remission. Plan - Hydroxychloroquine 200mg bid - RTC 6 months - Labs before visit: CBC, CMP, ESR, CRP (2) Polymyalgia rheumatica: Code(s): M35.3 - Polymyalgia rheumatica Category: Medical Plan: #PMR Patient is a 73 y.o. male with history of PMR currently in remission. No signs or symptoms concerning for GCA at this time ESR/CRP normal Plan - Continue to monitor off prednisone (3) Osteopenia: Comment: DEXA 07/2024: AP spine 2.3, Left femur neck -1.0, Left femur total -0.5 Code(s): M85.80 - Other specified disorders of bone density and structure, unspecified site Category: Medical Qualifiers: Osteopenia location: femoral neck Laterality: unspecified laterality Qualified Code(s): M85.859 - Other specified disorders of bone density and structure, unspecified thigh Plan: #Osteopenia Patient with osteopenia diagnosed by DXA in 2020. Previously on alendronate but stopped in 2021. Currently takes a multivitamin which contains vitamin-D. Goes to [employer] for exercise 3 times a week and uses weight machines. 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 Category: Medical Plan: #Long-term Use of Hydroxychloroquine Discussed with patient the risks and benefits of hydroxychloroquine in managing the rheumatic condition Benefits include: - Reduced pain, reduce mortality, maintenance of remission and reduction of flares Risks include: - GI upset, skin hyperpigmentation, retinal toxicity (especially after more than 5 years of use), myopathy Advised yearly ophthalmology visits Last ophthalmology visit: 10/2024 Plan I spent 30 minutes reviewing the record and labs, taking a history, examining the patient, discussing the treatment plan, ordering diagnostic work up and documenting in the medical record Medications: Refilled hydroxychloroquine 200 mg PO BID 180 tabs 1RF 90 days M06.00 - Rheumatoid arthritis without rheumatoid factor, unspecified site Coding Level of Care Code Est Pt Level 4 (62202) Complex EM visit Add On G2211 Diagnoses Seronegative rheumatoid arthritis M06.00 Polymyalgia rheumatica M35.3 Osteopenia of neck of femur, unspecified laterality M85.859 Osteopenia location: femoral neck Laterality: unspecified laterality Long-term use of hydroxychloroquine Z79.899
[2024-11-28 08:04] VITALS: BP 122/70; PULSE 69; O2SAT 98; BMI 28.8
== END 2024-11-28 08:36 | disposition home or self-care (01) ==
LOC: HO.RHES 07:57
PROVIDERS: Visit Provider Student in an Organized Health Care Education/Training Program
DX: M06.00 Rheumatoid arthritis without rheumatoid factor, unspecified site (principal); M35.3 Polymyalgia rheumatica; M85.859 Other specified disorders of bone density and structure, unspecified thigh; Z79.899 Other long term (current) drug therapy
CPT/HCPCS: 99214; G2211

== ENCOUNTER → 2024-11-28 07:57 | Outpatient (BNVA) | payer MEDICARE, SELFPAY | PROVIDERS: Visit Provider Student in an Organized Health Care Education/Training Program | DX: R06.09 Other forms of dyspnea (principal); M35.3 Polymyalgia rheumatica; M85.859 Other specified disorders of bone density and structure, unspecified thigh; Z79.899 Other long term (current) drug therapy | CPT/HCPCS: 99212 ==